=== PATIENT | female | born 1940 | race Caucasian/White ===

== ENCOUNTER 2016-12-23 17:02 | Inpatient (IN) | payer MEDICARE, MEDICAID ==
[2016-12-23] MEDS ORDERED: Albuterol/Ipratropium 3.0-0.5 MG/3 ML Neb Soln NEB ONE (17:40)
[2016-12-23] MEDS ORDERED: methylPREDNISolone Sodium Succinate 125 MG/2 ML SDV IVPUSH ONE (17:40)
--- NOTE | 2016-12-23 17:42 | EDM.PDOC ---
ED HISTORY OF PRESENT ILLNESS - General Chief Complaint: Respiratory Problem Stated Complaint: ALEJANDRO [phone] Time Seen by Provider: 12/23/16 17:35 Source of Information: Reports: Patient, RN, RN notes reviewed History Limitations: Reports: No limitations - History of Present Illness INITIAL COMMENTS - FREE TEXT/NARRATIVE: Patient presents with complaint of shortness of breath, cough and wheezing, fatigue and profound generalized weakness. Onset one to two days but progressively worsening. Severity: moderate Improves with: Reports: None Worsens with: Reports: None Associated Symptoms (General): Reports: no other symptoms - Related Data Allergies/ADRs: Allergies Allergy/AdvReac Type Severity Reaction Status Date / Time codeine Allergy Cannot Verified 10/07/15 12:52 Remember hydrochlorothiazide Allergy Cannot Verified 10/07/15 08:38 Remember Penicillins Allergy Rash Verified 10/07/15 12:52 Sulfa (Sulfonamide Allergy Rash Verified 10/07/15 12:52 Antibiotics) vitamin E (d-alpha Allergy Cannot Verified 10/07/15 08:38 tocopherol) Remember [vitamin E] calcium containing cmpd Allergy Cannot Uncoded 10/07/15 08:38 Remember seasonal allergies Allergy Cannot Uncoded 10/07/15 12:52 Remember Home Meds: Home Meds Colestipol [Colestipol HCl] 5 tab PO BID 11/16/13 [History] Fosinopril Sodium 40 mg PO DAILY 11/16/13 [History] Furosemide 20 mg PO BID 11/16/13 [History] Linagliptin [Tradjenta] 5 mg PO DAILY 11/16/13 [History] Omeprazole 20 mg PO DAILY 11/16/13 [History] Triamcinolone Acetonide [Kenalog 0.1% Crm] 15 gm .XX BID PRN 11/16/13 [History] Warfarin Sodium [Jantoven] 2.5 mg PO .SUNTUWEDTHSAT 11/16/13 [History] glipiZIDE [Glucotrol XL] 5 mg PO BID 02/20/15 [History] Clopidogrel [Plavix] 75 mg PO DAILY 08/06/15 [History] Warfarin [Coumadin] 5 mg PO .MONFRI 08/06/15 [History] metFORMIN [Glucophage] 500 mg PO BIDMEALS 08/06/15 [History] Metoprolol Succinate [Toprol XL] 75 mg PO BEDTIME #30 tab.er 12/18/15 [Rx] Fosinopril [Monopril] 2 tab PO BID 09/25/15 [History] traMADol [Ultram] 50 mg PO Q8H PRN 10/04/15 [History] Albuterol [Proair HFA] 2 puff INH QID 10/07/15 [History] Aspirin 325 mg PO DAILY 10/07/15 [History] Ferrous Sulfate [Iron] 325 mg PO DAILY 10/07/15 [History] Past Medical History HEENT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: Cataract, Impaired vision Cardiovascular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: Afib, Bacterial endocarditis, Blood clots/VTE/ DVT, Heart Failure, High cholesterol, Stents Respiratory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: COPD, Pneumonia, recurrent Gastrointestinal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: GERD, Hiatal hernia 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: , Other (see below) Other OB/BYN History: vaginal deliveries Musculoskeletal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: RA Neurological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: CVA Psychiatric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: None Endocrine/Metabolic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: Diabetes, type II Hematologic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: Anemia, Anticoagulation therapy, Blood transfusion (s), Iron deficiency Oncologic (Cancer)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: None Dermatologic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: Other (see below) Other Dermatologic History: patient reports that she has an itchy rash uses cream for this - Infectious Disease History Infectious Disease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: Chicken pox, Measles, Mumps - Past Surgical History HEENT Surgical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: Cataract surgery Cardiovascular Surgical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: Other (see below) Other Cardiovascular Surgeries/Procedures: open heart surgery in 1960 Respiratory Surgical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: None GI Surgical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: None, EGD Female Surgical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: None Endocrine Surgical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: None Neurological Surgical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: None Musculoskeletal Surgical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: None Social & Family History - Family History HEENT: Reports: Impaired vision Cardiac: Reports: Afib, Other (see below) Other Cardiac Family History: stroke Musculoskeletal: Reports: None Endocrine/Metabolic: Reports: Diabetes, type II - Tobacco Use Years of Tobacco use: 20 Used Tobacco, but Quit: Yes Month Tobacco Last Used: 20 yrs ago - Alcohol Use Days Per Week of Alcohol Use: 0 - Recreational Drug Use Recreational Drug Use: No - Living Situation & Occupation Living situation: Reports: , with spouse ED ROS GENERAL - Review of Systems Review Of Systems: ROS reveals no pertinent complaints other than HPI. ED EXAM, GENERAL - Physical Exam Exam: See Below Exam Limited By: No limitations General Appearance: other (Pale, frail, elderly appearing in no acute distress. ) Eye Exam: bilateral eye: conjunctival injection (pallor) Ears: normal external exam, normal canal, hearing grossly normal, normal TMs Nose: normal inspection, normal mucosa, no blood Throat/Mouth: Normal inspection, Normal lips, Normal teeth, Normal gums, Normal oropharynx, Normal voice, No airway compromise Head: atraumatic, normocephalic Neck: normal inspection, supple, non-tender, full range of motion Respiratory/Chest: other (decreased bilateral breath sounds, scattered wheezes. ) Cardiovascular: other (irregular/irregular) GI/Abdominal: normal bowel sounds, soft, non tender, no organomegaly, no distention, no abnormal bruit, no mass (Female) Exam: Deferred Rectal (Female) Exam: Deferred Back Exam: normal inspection, full range of motion, NT Extremities: normal inspection, normal range of motion, non-tender, normal capillary refill, no pedal edema Neurological: alert, oriented (alert and oriented to person, place, and month. State incorrect age. ), other (No motor or sensory deficits. Mild confusion. ) Psychiatric: normal affect, normal mood Skin Exam: Warm, Dry, Intact, Normal color, No rash EKG INTERPRETATION EKG Date: 12/23/16 Time: 18:10 Rhythm: a-fib Rate (beats/min): 83 [place]: normal P-wave: absent QRS: other (probable left ventricular hypertrophy and abnormal R-wave progression, late tarnsition.) ST-T: other (borderline T abnormalities, inferior leads.) QT: normal Comparison: no change Course - Vital Signs Last Recorded V/S: Last Vital Signs Temp 36.9 C 12/23/16 17:41 Pulse 124 H 12/23/16 17:41 Resp 22 H 12/23/16 17:41 BP 152/61 H 12/23/16 17:41 Pulse Ox 80 L 12/23/16 17:41 - Orders/Labs/Meds Orders: Active Orders 24 hr Category Date Time Status EKG 12 Lead [EKG Documentation Completion] [RC] STAT Care 12/23/16 17:39 Active Overnight Pulse Oximetry [RC] Click To Edit Care 12/23/16 17:40 Active Peripheral IV Care [RC] . DIRECTED Care 12/23/16 17:40 Active RT Aerosol Therapy [RC] ASDIRECTED Care 12/23/16 17:40 Active CULTURE BLOOD [BC] Stat Lab 12/23/16 18:03 Received CULTURE BLOOD [BC] Stat Lab 12/23/16 18:05 Received Sodium Chloride 0.9% [Saline Flush] Med 12/23/16 17:40 Active 10 ml FLUSH ASDIRECTED PRN Blood Culture x2 Reflex Set [OM.PC] Stat Oth 12/23/16 17:40 Ordered Peripheral IV Insertion Adult [OM.PC] Stat Oth 12/23/16 17:39 Ordered Pulse Oximetry Continuous Monitoring [OM.PC] Routine Oth 12/23/16 17:39 Ordered RT Supplemental Oxygen Titration [RESPCARE] Stat Ot 12/23/16 17:39 Active Medication Orders Sodium Chloride (Saline Flush) 10 ml FLUSH ASDIRECTED PRN PRN Reason: Keep Vein Open Last Admin: 12/23/16 18:06 Dose: 10 ml Labs: Laboratory Tests 12/23/16 12/23/16 12/23/16 Range/Units 17:45 18:05 18:05 WBC 5.6 (5.0-10.0) 10^3/uL RBC 3.27 L (4.2-5.4) 10^6/uL Hgb 10.0 L (12.0-16.0) g/dL Hct 31.2 L (37.0-47.0) % MCV 95.4 (80-100) fL MCH 30.6 (27.0-34.0) pg MCHC 32.1 L (33.0-35.0) g/dL Plt Count 140 L (150-450) 10^3/uL Neut % (Auto) 70.7 (42.2-75.2) % Lymph % (Auto) 15.5 L (20.5-50.1) % Island % (Auto) 10.7 H (2-8) % Eos % (Auto) 2.9 (1.0-3.0) % Baso % (Auto) 0.2 (0.0-1.0) % PT 39.5 H (9.0-12.0) SEC INR 3.9 H (0.9-1.2) Sodium (135-145) mmol/L Potassium (3.6-5.0) mmol/L Chloride (101-111) mmol/L Carbon Dioxide (21.0-31.0) mmol/L Anion Gap BUN (7-18) mg/dL Creatinine (0.6-1.3) mg/dL Est Cr Clr Drug Dosing mL/min Estimated GFR (MDRD) BUN/Creatinine Ratio Glucose (74-105) mg/dL Lactic Acid (0.5-2.2) mmol/L Calcium (8.4-10.2) mg/dl Total Bilirubin (0.2-1.0) mg/dL AST (10-42) IU/L ALT (10-60) IU/L Alkaline Phosphatase (42-121) IU/L Troponin I (0.00-0.02) ng/ml B-Natriuretic Peptide (0-100) pg/ml Total Protein (6.7-8.2) g/dl Albumin (3.2-5.5) g/dl Globulin Albumin/Globulin Ratio Urine Color Yellow (YELLOW) Urine Appearance Turbid (CLEAR) Urine pH 5.0 (5.0-9.0) Ur Specific [place] 1.010 (1.005-1.030) Urine Protein Negative (NEGATIVE) Urine Glucose (UA) Negative (NEGATIVE) Urine Ketones Negative (NEGATIVE) Urine Occult Blood Large H (NEGATIVE) Urine Nitrite Negative (NEGATIVE) Urine Bilirubin Negative (NEGATIVE) Urine Urobilinogen 0.2 (0.2-1.0) mg/dL Ur Leukocyte Esterase Trace H (NEGATIVE) Urine RBC 75-100 H /HPF Urine WBC 0-5 (0-5/HPF) /HPF Ur Epithelial Cells Few /HPF Urine Bacteria Few (0-FEW/HPF) /HPF 12/23/16 12/23/16 Range/Units 18:05 18:05 WBC (5.0-10.0) 10^3/uL RBC (4.2-5.4) 10^6/uL Hgb (12.0-16.0) g/dL Hct (37.0-47.0) % MCV (80-100) fL MCH (27.0-34.0) pg MCHC (33.0-35.0) g/dL Plt Count (150-450) 10^3/uL Neut % (Auto) (42.2-75.2) % Lymph % (Auto) (20.5-50.1) % [place] % (Auto) (2-8) % Eos % (Auto) (1.0-3.0) % Baso % (Auto) (0.0-1.0) % PT (9.0-12.0) SEC INR (0.9-1.2) Sodium 137 (135-145) mmol/L Potassium 3.9 (3.6-5.0) mmol/L Chloride 103 (101-111) mmol/L Carbon Dioxide 23.0 (21.0-31.0) mmol/L Anion Gap 14.9 BUN 42 H (7-18) mg/dL Creatinine 2.0 H (0.6-1.3) mg/dL Est Cr Clr Drug Dosing 21.53 mL/min Estimated GFR (MDRD) 24 BUN/Creatinine Ratio 21.00 Glucose 175 H (74-105) mg/dL Lactic Acid 1.5 (0.5-2.2) mmol/L Calcium 9.0 (8.4-10.2) mg/dl Total Bilirubin 0.6 (0.2-1.0) mg/dL AST 29 (10-42) IU/L ALT 22 (10-60) IU/L Alkaline Phosphatase 43 (42-121) IU/L Troponin I < 0.02 (0.00-0.02) ng/ml B-Natriuretic Peptide 281 H (0-100) pg/ml Total Protein 8.0 (6.7-8.2) g/dl Albumin 4.0 (3.2-5.5) g/dl Globulin 4.0 Albumin/Globulin Ratio 1.00 Urine Color (YELLOW) Urine Appearance (CLEAR) Urine pH (5.0-9.0) Ur Specific [place] (1.005-1.030) Urine Protein (NEGATIVE) Urine Glucose (UA) (NEGATIVE) Urine Ketones (NEGATIVE) Urine Occult Blood (NEGATIVE) Urine Nitrite (NEGATIVE) Urine Bilirubin (NEGATIVE) Urine Urobilinogen (0.2-1.0) mg/dL Ur Leukocyte Esterase (NEGATIVE) Urine RBC /HPF Urine WBC (0-5/HPF) /HPF Ur Epithelial Cells /HPF Urine Bacteria (0-FEW/HPF) /HPF Meds: Medications Generic Name Dose Route Start Last Admin Trade Name Freq PRN Reason Stop Dose Admin Sodium Chloride 10 ml 12/23/16 17:40 12/23/16 18:06 Saline Flush FLUSH 10 ml ASDIRECTED PRN Administration Keep Vein Open Discontinued Medications Generic Name Dose Route Start Last Admin Trade Name Amanda PRN Reason Stop Dose Admin Albuterol/Ipratropium 3 ml 12/23/16 17:40 12/23/16 18:06 Duoneb 3.0-0.5 Mg/3 Ml NEB 12/23/16 17:41 3 ml ONETIME ONE Administration Methylprednisolone Sodium Succinate 125 mg 12/23/16 17:40 12/23/16 18:06 Solu-Medrol IVPUSH 12/23/16 17:41 125 mg ONETIME ONE Administration - Radiology Interpretation Free Text/Narrative:: Chest x-ray: Chronic COPD changes. No focal infiltrate per rad report. Departure - Departure Time of Disposition: 19:06 (Admit to [facility]) Disposition: Admitted As Inpatient 66 Condition: serious Clinical Impression: COPD with acute exacerbation, Hypoxia, Chronic atrial fibrillation, Anticoagulation excessive Forms: ED Department Discharge - My Orders Last 24 Hours: My Active Orders 12/23/16 17:39 EKG 12 Lead [EKG Documentation Completion] [RC] STAT Peripheral IV Insertion Adult [OM.PC] Stat Pulse Oximetry Continuous Monitoring [OM.PC] Routine RT Supplemental Oxygen Titration [RESPCARE] Stat 12/23/16 17:40 Overnight Pulse Oximetry [RC] Click To Edit Peripheral IV Care [RC] . DIRECTED RT Aerosol Therapy [RC] ASDIRECTED Sodium Chloride 0.9% [Saline Flush] 10 ml FLUSH ASDIRECTED PRN Blood Culture x2 Reflex Set [OM.PC] Stat 12/23/16 18:03 CULTURE BLOOD [BC] Stat 12/23/16 18:05 CULTURE BLOOD [BC] Stat - Assessment/Plan Last 24 Hours: My Active Orders 12/23/16 17:39 EKG 12 Lead [EKG Documentation Completion] [RC] STAT Peripheral IV Insertion Adult [OM.PC] Stat Pulse Oximetry Continuous Monitoring [OM.PC] Routine RT Supplemental Oxygen Titration [RESPCARE] Stat 12/23/16 17:40 Overnight Pulse Oximetry [RC] Click To Edit Peripheral IV Care [RC] . DIRECTED RT Aerosol Therapy [RC] ASDIRECTED Sodium Chloride 0.9% [Saline Flush] 10 ml FLUSH ASDIRECTED PRN Blood Culture x2 Reflex Set [OM.PC] Stat 12/23/16 18:03 CULTURE BLOOD [BC] Stat 12/23/16 18:05 CULTURE BLOOD [BC] Stat
[2016-12-23] MEDS: Sodium Chloride 0.9% 10 ML Syringe FLUSH PRN (18:06)
[2016-12-23 18:35] LABS: CHLORIDE,CL 103 mmol/L (101-111); SODIUM,NA 137 mmol/L (135-145)
[2016-12-23] MEDS ORDERED: traMADol 50 MG Tab PO PRN (19:53)
[2016-12-23] MEDS ORDERED: Albuterol 0.083% 2.5 MG/3 ML Neb Soln NEB PRN (20:02)
[2016-12-23] MEDS ORDERED: Acetaminophen 325 MG Tab PO PRN (20:14)
[2016-12-23] MEDS ORDERED: Sodium Chloride 0.9% 10 ML Syringe FLUSH PRN (20:14)
[2016-12-23] MEDS ORDERED: Docusate Sodium 100 MG Cap PO PRN (20:14)
[2016-12-23] MEDS ORDERED: Ondansetron 4 MG Tab.DIS PO PRN (20:14)
--- NOTE | 2016-12-23 20:22 | PCM.HP ---
H&P History of Present Illness - General Date of Service: 12/23/16 Admit Problem/Dx: Admission Diagnosis/Problem Admission Diagnosis/Problem Dyspnea, acute COPD exacerbation - History of Present Illness Initial Comments - Free Text/Narative: the patient is a 76-year-old with a history of coronary artery disease, CHF, pulmonary hypertension, atrial fibrillation on anticoagulation. She has a history of COPD, not using home oxygen or steroids The patient recently traveled to [place] and did not have her inhalers with her In the next few days was getting progressively short breath Shortness of breath is worse with activity, better with rest, not associated with chest pain She has no cough or fever, no sick contact Came into the emergency room, she was noted to have hypoxemia She was given inhalers after she was noted to have wheezing and now she is feeling better - Related Data Allergies/Adverse Reactions: Allergies Allergy/AdvReac Type Severity Reaction Status Date / Time codeine Allergy Cannot Verified 10/07/15 12:52 Remember hydrochlorothiazide Allergy Cannot Verified 10/07/15 08:38 Remember Penicillins Allergy Rash Verified 10/07/15 12:52 Sulfa (Sulfonamide Allergy Rash Verified 10/07/15 12:52 Antibiotics) vitamin E (d-alpha Allergy Cannot Verified 10/07/15 08:38 tocopherol) Remember [vitamin E] calcium containing cmpd Allergy Cannot Uncoded 10/07/15 08:38 Remember seasonal allergies Allergy Cannot Uncoded 10/07/15 12:52 Remember Home Medications: Home Meds Colestipol [Colestipol HCl] 5 tab PO BID 11/16/13 [History] Fosinopril Sodium 40 mg PO DAILY 11/16/13 [History] Furosemide 20 mg PO BID 11/16/13 [History] Linagliptin [Tradjenta] 5 mg PO DAILY 11/16/13 [History] Omeprazole 20 mg PO DAILY 11/16/13 [History] Triamcinolone Acetonide [Kenalog 0.1% Crm] 15 gm .XX BID PRN 11/16/13 [History] Warfarin Sodium [Jantoven] 2.5 mg PO .SUNTUWEDTHSAT 11/16/13 [History] glipiZIDE [Glucotrol XL] 5 mg PO BID 02/20/15 [History] Clopidogrel [Plavix] 75 mg PO DAILY 08/06/15 [History] Warfarin [Coumadin] 5 mg PO .MONFRI 08/06/15 [History] metFORMIN [Glucophage] 500 mg PO BIDMEALS 08/06/15 [History] Metoprolol Succinate [Toprol XL] 75 mg PO BEDTIME #30 tab.er 08/09/15 [Rx] Fosinopril [Monopril] 2 tab PO BID 09/25/15 [History] traMADol [Ultram] 50 mg PO Q8H PRN 10/04/15 [History] Albuterol [Proair HFA] 2 puff INH QID 10/07/15 [History] Aspirin 325 mg PO DAILY 10/07/15 [History] Ferrous Sulfate [Iron] 325 mg PO DAILY 10/07/15 [History] Past Medical History HEENT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: Cataract, Impaired vision Cardiovascular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: Afib, Bacterial endocarditis, Blood clots/VTE/ DVT, Heart Failure, High cholesterol, Stents Respiratory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: COPD, Pneumonia, recurrent Gastrointestinal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: GERD, Hiatal hernia [employer]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: , Other (see below) Other OB/BYN History: vaginal deliveries Musculoskeletal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: RA Neurological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: CVA Psychiatric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: None Endocrine/Metabolic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: Diabetes, type II Hematologic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: Anemia, Anticoagulation therapy, Blood transfusion (s), Iron deficiency Oncologic (Cancer)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: None Dermatologic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: Other (see below) Other Dermatologic History: patient reports that she has an itchy rash uses cream for this - Infectious Disease History Infectious Disease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: Chicken pox, Measles, Mumps - Past Surgical History HEENT Surgical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: Cataract surgery Cardiovascular Surgical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: Other (see below) Other Cardiovascular Surgeries/Procedures: open heart surgery in 1960 Respiratory Surgical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: None GI Surgical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: None, EGD Female Surgical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: None Endocrine Surgical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: None Neurological Surgical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: None Musculoskeletal Surgical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: None Social & Family History - Family History HEENT: Reports: Impaired vision Cardiac: Reports: Afib, Other (see below) Other Cardiac Family History: stroke Musculoskeletal: Reports: None Endocrine/Metabolic: Reports: Diabetes, type II - Tobacco Use Smoking Status *Q: Former Smoker Years of Tobacco use: 20 Used Tobacco, but Quit: Yes Month Tobacco Last Used: 20 yrs ago Second Hand Smoke Exposure: No - Caffeine Use Caffeine Use: Reports: Coffee - Alcohol Use Days Per Week of Alcohol Use: 0 - Recreational Drug Use Recreational Drug Use: No - Living Situation & Occupation Living situation: Reports: , with spouse H&P Review of Systems - Review of Systems: Review Of Systems: See Below General: Denies: fever, chills Pulmonary: Reports: Shortness of Breath, Wheezing. Denies: Sputum, Hemoptysis Cardiovascular: Denies: chest pain, palpitations Gastrointestinal: Denies: Abdominal pain Psychiatric: Denies: confusion Neurological: Denies: Dizziness, Headache Exam - Exam Exam: See Below - Vital Signs Vital Signs: Last Vital Signs Temp 36.9 C 12/23/16 17:41 Pulse 124 H 12/23/16 17:41 Resp 22 H 12/23/16 17:41 BP 152/61 H 12/23/16 17:41 Pulse Ox 80 L 12/23/16 17:41 Weight: 78.018 kg - Exam Quality Assessment: supplemental oxygen General: alert, oriented Neck: supple Lungs: Decreased breath sounds, Wheezing (mild) Cardiovascular: irregular rhythm. No: bradycardia, tachycardia Abdomen: normal bowel sounds, soft Back Exam: normal inspection, full range of motion Extremities: normal inspection. No: edema Skin: warm, dry Neuro Extensive - Mental Status: alert, oriented x3, normal mood/affect - Patient Data Result Diagrams: 12/23/16 18:05 12/23/16 18:05 EKG INTERPRETATION EKG Date: 12/23/16 Rhythm: a-fib *Q Meaningful Use (ADM) - VTE *Q VTE Criteria *Q: - Stroke *Q Stroke Criteria *Q: - AMI *Q AMI Criteria *Q: - Problem List (1) COPD with acute exacerbation SNOMED Code(s): 108703092 ICD Code: J44.1 - CHRONIC OBSTRUCTIVE PULMONARY DISEASE W (ACUTE) EXACERBATION Status: Acute Current Visit: Yes (2) Chronic atrial fibrillation SNOMED Code(s): 981818076 ICD Code: I48.2 - CHRONIC ATRIAL FIBRILLATION Status: Acute Current Visit : Yes (3) Hypoxia SNOMED Code(s): 602135157, 150355019 ICD Code: R09.02 - HYPOXEMIA Status: Acute Current Visit: Yes (4) Dyspnea SNOMED Code(s): 360447453 ICD Code: R06.00 - DYSPNEA, UNSPECIFIED Status: Acute Current Visit: No Onset Date: 08/06/15 (5) Anticoagulated on Coumadin SNOMED Code(s): 55937771 ICD Code: Z51.81 - ENCOUNTER FOR THERAPEUTIC DRUG LEVEL MONITORING; Z79.01 - MCC (CURRENT) USE OF ANTICOAGULANTS Status: Chronic Current Visit: No (6) Diabetes mellitus type 2, uncomplicated SNOMED Code(s): 091811532 ICD Code: E11.9 - TYPE 2 DIABETES MELLITUS WITHOUT COMPLICATIONS Status: Chronic Current Visit: No (7) Hypertension SNOMED Code(s): 41270209 ICD Code: I10 - ESSENTIAL (PRIMARY) HYPERTENSION Status: Chronic Current Visit: No Problem List Initiated/Reviewed/Updated: Yes Orders Last 24hrs: Active Orders 24 hr Category Date Time Status Patient Status [ADT] Routine ADT 12/23/16 20:14 Ordered Antiembolic Devices [RC] PER UNIT ROUTINE Care 12/23/16 20:17 Ordered Glucose [Blood Glucose Check, Bedside] [RC] QIDACANDBED Care 12/23/16 20:11 Ordered Oxygen Therapy [RC] PRN Care 12/23/16 20:14 Ordered RT Aerosol Therapy [RC] ASDIRECTED Care 12/23/16 20:01 Ordered Up With Assistance [RC] ASDIRECTED Care 12/23/16 20:14 Ordered VTE/DVT Education [RC] PER UNIT ROUTINE Care 12/23/16 20:14 Ordered Vital Signs [RC] Q4H Care 12/23/16 20:14 Ordered Consistent Carbohydrate Diet [DIET] Diet 12/23/16 Breakfast Ordered BASIC METABOLIC PANEL,BMP [CHEM] AM Lab 12/24/16 05:15 Ordered CBC WITH AUTO DIFF [HEME] AM Lab 12/24/16 05:15 Ordered INR,PT,PROTHROMBIN TIME [COAG] AM Lab 12/24/16 05:11 Ordered INR,PT,PROTHROMBIN TIME [COAG] AM Lab 12/25/16 05:11 Ordered INR,PT,PROTHROMBIN TIME [COAG] AM Lab 12/26/16 05:11 Ordered INR,PT,PROTHROMBIN TIME [COAG] AM Lab 12/27/16 05:11 Ordered INR,PT,PROTHROMBIN TIME [COAG] AM Lab 12/28/16 05:11 Ordered INR,PT,PROTHROMBIN TIME [COAG] AM Lab 12/29/16 05:11 Ordered INR,PT,PROTHROMBIN TIME [COAG] AM Lab 12/30/16 05:11 Ordered INR,PT,PROTHROMBIN TIME [COAG] AM Lab 12/31/16 05:11 Ordered Acetaminophen [Tylenol] Med 12/23/16 20:14 Ordered 650 mg PO Q4H PRN Albuterol [Proventil Neb Soln] Med 12/23/16 20:02 Ordered 2.5 mg NEB Q6HRRT PRN Albuterol/Ipratropium [DuoNeb 3.0-0.5 MG/3 ML] Med 12/24/16 01:00 Ordered 3 ml NEB Q6HRRT Aspirin Med 12/24/16 09:00 Ordered 325 mg PO DAILY Budesonide [Pulmicort] Med 12/24/16 07:00 Ordered 0.5 mg NEB BIDRT Docusate Sodium [Colace] Med 12/23/16 20:14 Ordered 100 mg PO BID PRN Ferrous Sulfate Med 12/24/16 09:00 Ordered 325 mg PO DAILY Fosinopril [Monopril] Med 12/23/16 21:00 Ordered 2 tab PO BID Furosemide [Lasix] Med 12/23/16 21:00 Ordered 20 mg PO BID Insulin Aspart [NovoLOG] Med 12/23/16 21:00 Ordered See Protocol SUBCUT QIDACANDBED Metoprolol Succinate [Toprol XL] Med 12/23/16 21:00 Ordered 75 mg PO BEDTIME Omeprazole Med 12/24/16 09:00 Ordered 20 mg PO DAILY Ondansetron [Zofran ODT] Med 12/23/16 20:14 Ordered 4 mg PO Q4H PRN Sodium Chloride 0.9% [Saline Flush] Med 12/23/16 20:14 Ordered 10 ml FLUSH ASDIRECTED PRN Warfarin Pharmacy to Dose [Pharmacy to Dose - Warfarin] Med 12/23/16 20:00 Ordered 1 dose .XX ASDIRECTED Zolpidem [Ambien] Med 12/23/16 20:14 Ordered 5 mg PO BEDTIME PRN glipiZIDE [Glucotrol XL] Med 12/23/16 21:00 Ordered 5 mg PO BID methylPREDNISolone Sod Succ [Solu-MEDROL] Med 12/23/16 20:00 Ordered 40 mg IVPUSH Q8H traMADol [Ultram] Med 12/23/16 19:53 Ordered 50 mg PO Q8H PRN Antiembolic Hose [OM.PC] Per Unit Routine Oth 12/23/16 20:17 Ordered Saline Lock Insert [OM.PC] Routine Oth 12/23/16 20:14 Ordered Resuscitation Status Routine Resus Stat 12/23/16 20:14 Ordered Medication Orders Albuterol (Proventil Neb Soln) 2.5 mg NEB Q6HRRT PRN PRN Reason: sob Albuterol/Ipratropium (Duoneb 3.0-0.5 Mg/3 Ml) 3 ml NEB Q6HRRT [facility] Aspirin (Aspirin) 325 mg PO DAILY [facility] Budesonide (Pulmicort) 0.5 mg NEB BIDRT [facility] Ferrous Sulfate (Ferrous Sulfate) 325 mg PO DAILY [facility] Furosemide (Lasix) 20 mg PO BID [facility] Glipizide (Glucotrol Xl) 5 mg PO BID [facility] Insulin Aspart (Novolog) 0 unit SUBCUT QIDACANDBED [facility] PRN Reason: Protocol Methylprednisolone Sodium Succinate (Solu-Medrol) 40 mg IVPUSH Q8H [facility] Metoprolol Succinate (Toprol Xl) 75 mg PO BEDTIME [facility] Non-Formulary Medication (Fosinopril [Monopril]) 2 tab PO BID [facility] Omeprazole (Omeprazole) 20 mg PO DAILY [facility] Sodium Chloride (Saline Flush) 10 ml FLUSH ASDIRECTED PRN PRN Reason: Keep Vein Open Last Admin: 12/23/16 18:06 Dose: 10 ml Tramadol HCl (Ultram) 50 mg PO Q8H PRN PRN Reason: Pain Warfarin Sodium (Pharmacy To Dose - Warfarin) 1 dose .XX ASDIRECTED [facility] Assessment/Plan Comment:: Acute hypoxemic respiratory failure secondary to an acute COPD exacerbation Supplemental oxygen as needed Acute COPD exacerbation No apparent pneumonia on chest x-ray The patient was on albuterol inhaler, no home oxygen Will admit to hospital Start IV steroid, Pulmicort, scheduled DuoNeb and p.r.n. albuterol Coronary artery disease Continue on aspirin Continue Metoprolol Diabetes Hold Linagliptin, metformin Continue glipizide Follow blood sugars, and supplemental insulin and hypoglycemia protocol as needed Chronic kidney disease stage 3-4 Continue diuretics Hypertension Continue NIKOLAI inhibitor, metoprolol History of pulmonary hypertension Maintain Lasix dose Atrial fibrillation Her rate is controlled, continue metoprolol Anticoagulation for history of DVT, atrial fibrillation Target INR will be between 2 and 3 Follow INR daily Adjust Coumadin dose daily as needed
[2016-12-23] MEDS: Insulin Aspart 100 Units/ML 3 ML Pen SUBCUT SCH (23:29)
[2016-12-23] MEDS: glipiZIDE 5 MG Tab.ER PO SCH (23:29)
[2016-12-23] MEDS: Furosemide 20 MG Tab PO SCH (23:29)
[2016-12-23] MEDS: methylPREDNISolone Sodium Succinate 40 MG/1 ML SDV IVPUSH SCH (23:32)
[2016-12-23] MEDS: Metoprolol Succinate 50 MG Tab.ER PO SCH (23:35)
[2016-12-23] MEDS: Zolpidem 5 MG Tab PO PRN (23:36)
[2016-12-24] MEDS: Albuterol/Ipratropium 3.0-0.5 MG/3 ML Neb Soln NEB SCH ×4 (01:50→17:47)
[2016-12-24] MEDS: Omeprazole 20 MG Cap.CR PO SCH (05:38)
[2016-12-24] MEDS ORDERED: traMADol 50 MG Tab PO PRN (08:02)
[2016-12-24] MEDS: Insulin Aspart 100 Units/ML 3 ML Pen SUBCUT SCH ×4 (08:54→21:08)
[2016-12-24] MEDS: Aspirin 325 MG Tab PO SCH (08:54)
[2016-12-24] MEDS: methylPREDNISolone Sodium Succinate 40 MG/1 ML SDV IVPUSH SCH ×2 (08:54→17:47)
[2016-12-24] MEDS: glipiZIDE 5 MG Tab.ER PO SCH ×2 (08:54→17:47)
[2016-12-24] MEDS: Ferrous Sulfate 325 MG Tab PO SCH (08:54)
[2016-12-24] MEDS: Furosemide 20 MG Tab PO SCH ×2 (08:54→13:09)
[2016-12-24] MEDS: Sodium Chloride 0.9% 10 ML Syringe FLUSH PRN (08:57)
[2016-12-24] MEDS ORDERED: Clopidogrel 75 MG Tab PO SCH (09:00)
[2016-12-24] MEDS: Budesonide 0.5 MG/2 ML Neb Susp NEB SCH ×2 (10:04→17:47)
--- NOTE | 2016-12-24 10:16 | PCM.PN ---
- General Info Date of Service: 12/24/16 Admission Dx/Problem (Free Text): Admission Diagnosis/Problem Admission Diagnosis/Problem Dyspnea, acute COPD exacerbation Subjective Update: feeling better, Last shortness of breath, but still on oxygen no fever, no chest pain, no abdominal pain Has been using nebulizers - Review of Systems General: Reports: Weakness. Denies: Fever Pulmonary: Reports: shortness of breath (improved). Denies: cough Cardiovascular: Denies: Chest Pain Gastrointestinal: Denies: Abdominal pain Genitourinary: Denies: dysuria Neurological: Denies: Confusion - Patient Data Vitals - most recent: Last Vital Signs Temp 37.1 C 12/24/16 07:00 Pulse 75 12/24/16 07:00 Resp 20 12/24/16 07:00 BP 107/58 L 12/24/16 07:00 Pulse Ox 100 12/24/16 07:00 Weight - most recent: 78.018 kg I&O - last 24 hours: Intake & Output 12/23/16 12/24/16 12/24/16 22:59 06:59 14:59 Intake Total 350 200 Output Total 300 600 Balance -300 -250 200 Lab Results last 24 hrs: Laboratory Results - last 24 hr 12/23/16 12/24/16 12/24/16 Range/Units 21:18 06:45 06:45 WBC 6.9 (5.0-10.0) 10^3/uL RBC 3.27 L (4.2-5.4) 10^6/uL Hgb 9.8 L (12.0-16.0) g/dL Hct 31.2 L (37.0-47.0) % MCV 95.4 (80-100) fL MCH 30.0 (27.0-34.0) pg MCHC 31.4 L (33.0-35.0) g/dL Plt Count 138 L (150-450) 10^3/uL Neut % (Auto) 89.7 H (42.2-75.2) % Lymph % (Auto) 8.9 L (20.5-50.1) % [place] % (Auto) 1.2 L (2-8) % Eos % (Auto) 0.1 L (1.0-3.0) % Baso % (Auto) 0.1 (0.0-1.0) % PT (9.0-12.0) SEC INR (0.9-1.2) Sodium 137 (135-145) mmol/L Potassium 4.2 (3.6-5.0) mmol/L Chloride 106 (101-111) mmol/L Carbon Dioxide 22.0 (21.0-31.0) mmol/L Anion Gap 13.2 BUN 42 H (7-18) mg/dL Creatinine 1.9 H (0.6-1.3) mg/dL Est Cr Clr Drug Dosing 23.58 mL/min Estimated GFR (MDRD) 26 Glucose 244 H (74-105) mg/dL POC Glucose 212 H (83-110) mg/dl Calcium 9.1 (8.4-10.2) mg/dl 12/24/16 12/24/16 Range/Units 06:45 07:59 WBC (5.0-10.0) 10^3/uL RBC (4.2-5.4) 10^6/uL Hgb (12.0-16.0) g/dL Hct (37.0-47.0) % MCV (80-100) fL MCH (27.0-34.0) pg MCHC (33.0-35.0) g/dL Plt Count (150-450) 10^3/uL Neut % (Auto) (42.2-75.2) % Lymph % (Auto) (20.5-50.1) % [place] % (Auto) (2-8) % Eos % (Auto) (1.0-3.0) % Baso % (Auto) (0.0-1.0) % PT 26.6 H (9.0-12.0) SEC INR 2.6 H (0.9-1.2) Sodium (135-145) mmol/L Potassium (3.6-5.0) mmol/L Chloride (101-111) mmol/L Carbon Dioxide (21.0-31.0) mmol/L Anion Gap BUN (7-18) mg/dL Creatinine (0.6-1.3) mg/dL Est Cr Clr Drug Dosing mL/min Estimated GFR (MDRD) Glucose (74-105) mg/dL POC Glucose 221 H (83-110) mg/dl Calcium (8.4-10.2) mg/dl Med Orders - Current: Current Medications Acetaminophen (Tylenol) 650 mg PO Q4H PRN PRN Reason: Pain (Mild 1-3)/fever Albuterol (Proventil Neb Soln) 2.5 mg NEB Q6HRRT PRN PRN Reason: sob Last Admin: 12/24/16 02:33 Dose: 2.5 mg Albuterol/Ipratropium (Duoneb 3.0-0.5 Mg/3 Ml) 3 ml NEB Q6HRRT [facility] Last Admin: 12/24/16 10:05 Dose: 3 ml Aspirin (Aspirin) 325 mg PO DAILY [facility] Last Admin: 12/24/16 08:54 Dose: 325 mg Budesonide (Pulmicort) 0.5 mg NEB BIDRT [facility] Last Admin: 12/24/16 10:04 Dose: 0.5 mg Docusate Sodium (Colace) 100 mg PO BID PRN PRN Reason: Constipation Ferrous Sulfate (Ferrous Sulfate) 325 mg PO DAILY [facility] Last Admin: 12/24/16 08:54 Dose: 325 mg Furosemide (Lasix) 20 mg PO BIDDIURETIC [facility] Last Admin: 12/24/16 08:54 Dose: 20 mg Glipizide (Glucotrol Xl) 5 mg PO BIDMEALS [facility] Last Admin: 12/24/16 08:54 Dose: 5 mg Insulin Aspart (Novolog) 0 unit SUBCUT QIDACANDBED [facility] PRN Reason: Protocol Last Admin: 12/24/16 08:54 Dose: 4 units Methylprednisolone Sodium Succinate (Solu-Medrol) 40 mg IVPUSH Q8H [facility] Last Admin: 12/24/16 08:54 Dose: 40 mg Metoprolol Succinate (Toprol Xl) 75 mg PO BEDTIME [facility] Last Admin: 12/23/16 23:35 Dose: 75 mg Non-Formulary Medication (Fosinopril [Monopril]) 2 tab PO BID [facility] Omeprazole (Omeprazole) 20 mg PO DAILY@0600 [facility] Last Admin: 12/24/16 05:38 Dose: 20 mg Ondansetron HCl (Zofran Odt) 4 mg PO Q4H PRN PRN Reason: nausea, able to take PO Sodium Chloride (Saline Flush) 10 ml FLUSH ASDIRECTED PRN PRN Reason: Keep Vein Open Last Admin: 12/24/16 08:57 Dose: 10 ml Sodium Chloride (Saline Flush) 10 ml FLUSH ASDIRECTED PRN PRN Reason: Keep Vein Open Tramadol HCl (Ultram) 50 mg PO Q12HR PRN PRN Reason: Pain Warfarin Sodium (Pharmacy To Dose - Warfarin) 1 dose .XX ASDIRECTED [facility] Warfarin Sodium (Coumadin) 2.5 mg PO ONETIME ONE Stop: 12/24/16 14:01 Zolpidem Tartrate (Ambien) 5 mg PO BEDTIME PRN PRN Reason: Sleep Last Admin: 12/23/16 23:36 Dose: 5 mg Discontinued Medications Albuterol/Ipratropium (Duoneb 3.0-0.5 Mg/3 Ml) 3 ml NEB ONETIME ONE Stop: 12/23/16 17:41 Last Admin: 12/23/16 18:06 Dose: 3 ml Clopidogrel Bisulfate (Plavix) 75 mg PO DAILY [facility] Methylprednisolone Sodium Succinate (Solu-Medrol) 125 mg IVPUSH ONETIME ONE Stop: 12/23/16 17:41 Last Admin: 12/23/16 18:06 Dose: 125 mg Tramadol HCl (Ultram) 50 mg PO Q8H PRN PRN Reason: Pain - Exam Quality Assessment: supplemental oxygen General: alert, oriented Neck: supple Lungs: Normal respiratory effort, Decreased breath sounds. No: Wheezing Cardiovascular: Regular Rate, Regular Rhythm Abdomen: bowel sounds present, soft, no tenderness, no distension Extremities: no edema Skin: warm, dry, intact Psy/Mental Status: alert, normal affect, normal mood - Problem List & Annotations (1) COPD with acute exacerbation SNOMED Code(s): 350250678 Code(s): J44.1 - CHRONIC OBSTRUCTIVE PULMONARY DISEASE W (ACUTE) EXACERBATION Status: Acute Current Visit: Yes (2) Chronic atrial fibrillation SNOMED Code(s): 664874580 Code(s): I48.2 - CHRONIC ATRIAL FIBRILLATION Status: Acute Current Visit : Yes (3) Hypoxia SNOMED Code(s): 595315923, 145370467 Code(s): R09.02 - HYPOXEMIA Status: Acute Current Visit: Yes (4) Dyspnea SNOMED Code(s): 650364529 Code(s): R06.00 - DYSPNEA, UNSPECIFIED Status: Acute Current Visit: No Onset Date: 08/06/15 (5) Anticoagulated on Coumadin SNOMED Code(s): 63004794 Code(s): Z51.81 - ENCOUNTER FOR THERAPEUTIC DRUG LEVEL MONITORING; Z79.01 - [employer]IC[employer] (CURRENT) USE OF ANTICOAGULANTS Status: Chronic Current Visit: No (6) Diabetes mellitus type 2, uncomplicated SNOMED Code(s): 557321587 Code(s): E11.9 - TYPE 2 DIABETES MELLITUS WITHOUT COMPLICATIONS Status: Chronic Current Visit: No (7) Hypertension SNOMED Code(s): 22085813 Code(s): I10 - ESSENTIAL (PRIMARY) HYPERTENSION Status: Chronic Current Visit: No - Problem List Review Problem List Initiated/Reviewed/Updated: Yes - My Orders Last 24 Hours: My Active Orders 12/24/16 08:02 traMADol [Ultram] 50 mg PO Q12HR PRN 12/24/16 14:00 Warfarin [Coumadin] 2.5 mg PO ONETIME ONE 12/25/16 05:15 BASIC METABOLIC PANEL,BMP [CHEM] AM CBC WITH AUTO DIFF [HEME] AM - Plan Plan:: Acute hypoxemic respiratory failure secondary to an acute COPD exacerbation Supplemental oxygen as needed Acute COPD exacerbation No apparent pneumonia on chest x-ray continue IV steroid, Pulmicort, scheduled DuoNeb and p.r.n. albuterol Coronary artery disease Continue on aspirin Continue Metoprolol Diabetes Hold Linagliptin, metformin Continue glipizide Follow blood sugars, and supplemental insulin and hypoglycemia protocol as needed Chronic kidney disease stage 3-4 Continue diuretics Hypertension Continue NIKOLAI inhibitor, metoprolol History of pulmonary hypertension Maintain Lasix dose Atrial fibrillation Her rate is controlled, continue metoprolol Anticoagulation for history of DVT, atrial fibrillation Target INR will be between 2 and 3 Follow INR daily Adjust Coumadin dose daily as needed
[2016-12-24] MEDS: FOSINOPRIL PO SCH ×2 (11:39→12:33)
[2016-12-24] MEDS ORDERED: Warfarin 2.5 MG Tab PO ONE (14:00)
[2016-12-24] MEDS: Metoprolol Succinate 50 MG Tab.ER PO SCH (21:10)
[2016-12-24] MEDS: Zolpidem 5 MG Tab PO PRN (21:14)
[2016-12-25] MEDS: methylPREDNISolone Sodium Succinate 40 MG/1 ML SDV IVPUSH SCH ×2 (00:25→08:40)
[2016-12-25] MEDS: Albuterol/Ipratropium 3.0-0.5 MG/3 ML Neb Soln NEB SCH ×3 (03:01→13:33)
[2016-12-25] MEDS: Omeprazole 20 MG Cap.CR PO SCH (06:06)
[2016-12-25] MEDS: Budesonide 0.5 MG/2 ML Neb Susp NEB SCH (07:10)
[2016-12-25] MEDS: Furosemide 20 MG Tab PO SCH ×2 (08:39→13:35)
[2016-12-25] MEDS: glipiZIDE 5 MG Tab.ER PO SCH (08:39)
[2016-12-25] MEDS: Ferrous Sulfate 325 MG Tab PO SCH (08:39)
[2016-12-25] MEDS: Aspirin 325 MG Tab PO SCH (08:39)
[2016-12-25] MEDS: Insulin Aspart 100 Units/ML 3 ML Pen SUBCUT SCH ×2 (08:41→12:05)
[2016-12-25] MEDS: Sodium Chloride 0.9% 10 ML Syringe FLUSH PRN (08:43)
--- NOTE | 2016-12-25 09:40 | PCM.DCSUM1 ---
Discharge Summary - Hospital Course Free Text/Narrative:: Acute hypoxemic respiratory failure secondary to an acute COPD exacerbation walking desat study performed prior to discharge showed need for 3 l /min oxygen with activity for Dx: COPD, likely lifelong need can be on RA with rest and at night Acute COPD exacerbation No apparent pneumonia on chest x-ray treated with IV steroid, Pulmicort, scheduled DuoNeb and p.r.n. albuterol improved will taper PO prednisone will do home abx will need home oxygen with activity via [place] Coronary artery disease Continue on aspirin Continue Metoprolol Diabetes resume Linagliptin, metformin Continue glipizide Chronic kidney disease stage 3-4 Continue diuretics Hypertension Continue NIKOLAI inhibitor, metoprolol History of pulmonary hypertension Maintain Lasix dose Atrial fibrillation Her rate is controlled, continue metoprolol Anticoagulation for history of DVT, atrial fibrillation continue coumadin - Discharge Data Discharge Date: 12/25/16 Discharge Disposition: Home, Self-Care 01 Condition: Fair - Discharge Diagnosis/Problem(s) (1) COPD with acute exacerbation SNOMED Code(s): 128524135 ICD Code: J44.1 - CHRONIC OBSTRUCTIVE PULMONARY DISEASE W (ACUTE) EXACERBATION Status: Acute Current Visit: Yes (2) Chronic atrial fibrillation SNOMED Code(s): 758209060 ICD Code: I48.2 - CHRONIC ATRIAL FIBRILLATION Status: Acute Current Visit : Yes (3) Hypoxia SNOMED Code(s): 315754144, 950681125 ICD Code: R09.02 - HYPOXEMIA Status: Acute Current Visit: Yes (4) Dyspnea SNOMED Code(s): 375393424 ICD Code: R06.00 - DYSPNEA, UNSPECIFIED Status: Acute Current Visit: No Onset Date: 08/06/15 (5) Anticoagulated on Coumadin SNOMED Code(s): 46698293 ICD Code: Z51.81 - ENCOUNTER FOR THERAPEUTIC DRUG LEVEL MONITORING; Z79.01 - [facility] (CURRENT) USE OF ANTICOAGULANTS Status: Chronic Current Visit: No (6) Diabetes mellitus type 2, uncomplicated SNOMED Code(s): 707604372 ICD Code: E11.9 - TYPE 2 DIABETES MELLITUS WITHOUT COMPLICATIONS Status: Chronic Current Visit: No (7) Hypertension SNOMED Code(s): 60345979 ICD Code: I10 - ESSENTIAL (PRIMARY) HYPERTENSION Status: Chronic Current Visit: No - Patient Instructions Diet: Usual Diet as Tolerated Activity: As Tolerated - Discharge Plan Prescriptions/Med Rec: Budesonide [Pulmicort] 0.5 mg NEB BIDRT #60 neb Levofloxacin [Levaquin] 500 mg PO Q24H #7 tablet predniSONE [Prednisone] 10 mg PO DAILY #20 tablet Home Medications: Home Meds Colestipol [Colestipol HCl] 5 tab PO BID 11/16/13 [History] Fosinopril Sodium 40 mg PO DAILY 11/16/13 [History] Furosemide 20 mg PO BID 11/16/13 [History] Linagliptin [Tradjenta] 5 mg PO DAILY 11/16/13 [History] Omeprazole 20 mg PO DAILY 11/16/13 [History] Triamcinolone Acetonide [Kenalog 0.1% Crm] 1 applic .XX BID PRN 11/16/13 [ History] Warfarin Sodium [Jantoven] 2.5 mg PO .SUNTUWEDTHSAT 11/16/13 [History] glipiZIDE [Glucotrol XL] 5 mg PO BID 02/20/15 [History] Warfarin [Coumadin] 2.5 mg PO .MONFRI 08/06/15 [History] Metoprolol Succinate [Toprol XL] 75 mg PO BEDTIME #30 tab.er 08/09/15 [Rx] Albuterol [Proair HFA] 2 puff INH QID 10/07/15 [History] Ferrous Sulfate [Iron] 325 mg PO DAILY 10/07/15 [History] Albuterol/Ipratropium [DuoNeb 3.0-0.5 MG/3 ML] 3 ml NEB Q6HRRT neb 12/25/16 [Rx ] Budesonide [Pulmicort] 0.5 mg NEB BIDRT #60 neb 12/25/16 [Rx] Levofloxacin [Levaquin] 500 mg PO Q24H #7 tablet 12/25/16 [Rx] predniSONE [Prednisone] 10 mg PO DAILY #20 tablet 12/25/16 [Rx] Referrals: Dontrell Hernandez MD [Primary Care Provider] - (in 3-4 days) - Discharge Summary/Plan Comment DC Time >30 min.: No - General Info Date of Service: 12/25/16 - Review of Systems General: Denies: Fever Pulmonary: Reports: shortness of breath (with activity) Cardiovascular: Denies: Chest Pain Gastrointestinal: Denies: Abdominal pain Neurological: Denies: Confusion - Patient Data Vitals - Most Recent: Last Vital Signs Temp 36.6 C 12/25/16 07:00 Pulse 78 12/25/16 07:11 Resp 20 12/25/16 07:00 BP 90/65 12/25/16 07:00 Pulse Ox 100 12/25/16 07:00 Weight - Most Recent: 79.742 kg I&O - Last 24 hours: Intake & Output 12/24/16 12/25/16 12/25/16 22:59 06:59 14:59 Intake Total 600 Output Total 300 Balance 300 Lab Results - Last 24 hrs: Laboratory Results - last 24 hr 12/24/16 12/24/16 12/24/16 Range/Units 11:08 17:02 21:05 WBC (5.0-10.0) 10^3/uL RBC (4.2-5.4) 10^6/uL Hgb (12.0-16.0) g/dL Hct (37.0-47.0) % MCV (80-100) fL MCH (27.0-34.0) pg MCHC (33.0-35.0) g/dL Plt Count (150-450) 10^3/uL Neut % (Auto) (42.2-75.2) % Lymph % (Auto) (20.5-50.1) % [place] % (Auto) (2-8) % Eos % (Auto) (1.0-3.0) % Baso % (Auto) (0.0-1.0) % PT (9.0-12.0) SEC INR (0.9-1.2) Sodium (135-145) mmol/L Potassium (3.6-5.0) mmol/L Chloride (101-111) mmol/L Carbon Dioxide (21.0-31.0) mmol/L Anion Gap BUN (7-18) mg/dL Creatinine (0.6-1.3) mg/dL Est Cr Clr Drug Dosing mL/min Estimated GFR (MDRD) Glucose (74-105) mg/dL POC Glucose 244 H 222 H 251 H (83-110) mg/dl Calcium (8.4-10.2) mg/dl 12/25/16 12/25/16 12/25/16 Range/Units 06:15 06:15 06:15 WBC 15.4 H (5.0-10.0) 10^3/uL RBC 3.33 L (4.2-5.4) 10^6/uL Hgb 10.0 L (12.0-16.0) g/dL Hct 32.1 L (37.0-47.0) % MCV 96.4 (80-100) fL MCH 30.0 (27.0-34.0) pg MCHC 31.2 L (33.0-35.0) g/dL Plt Count 168 (150-450) 10^3/uL Neut % (Auto) 90.4 H (42.2-75.2) % Lymph % (Auto) 6.2 L (20.5-50.1) % [place] % (Auto) 3.3 (2-8) % Eos % (Auto) 0.0 L (1.0-3.0) % Baso % (Auto) 0.1 (0.0-1.0) % PT 27.8 H (9.0-12.0) SEC INR 2.8 H (0.9-1.2) Sodium 137 (135-145) mmol/L Potassium 4.2 (3.6-5.0) mmol/L Chloride 105 (101-111) mmol/L Carbon Dioxide 23.0 (21.0-31.0) mmol/L Anion Gap 13.2 BUN 62 H (7-18) mg/dL Creatinine 2.3 H (0.6-1.3) mg/dL Est Cr Clr Drug Dosing 19.48 mL/min Estimated GFR (MDRD) 21 Glucose 232 H (74-105) mg/dL POC Glucose (83-110) mg/dl Calcium 9.2 (8.4-10.2) mg/dl 12/25/16 Range/Units 07:51 WBC (5.0-10.0) 10^3/uL RBC (4.2-5.4) 10^6/uL Hgb (12.0-16.0) g/dL Hct (37.0-47.0) % MCV (80-100) fL MCH (27.0-34.0) pg MCHC (33.0-35.0) g/dL Plt Count (150-450) 10^3/uL Neut % (Auto) (42.2-75.2) % Lymph % (Auto) (20.5-50.1) % [place] % (Auto) (2-8) % Eos % (Auto) (1.0-3.0) % Baso % (Auto) (0.0-1.0) % PT (9.0-12.0) SEC INR (0.9-1.2) Sodium (135-145) mmol/L Potassium (3.6-5.0) mmol/L Chloride (101-111) mmol/L Carbon Dioxide (21.0-31.0) mmol/L Anion Gap BUN (7-18) mg/dL Creatinine (0.6-1.3) mg/dL Est Cr Clr Drug Dosing mL/min Estimated GFR (MDRD) Glucose (74-105) mg/dL POC Glucose 241 H (83-110) mg/dl Calcium (8.4-10.2) mg/dl Med Orders - Current: Current Medications Acetaminophen (Tylenol) 650 mg PO Q4H PRN PRN Reason: Pain (Mild 1-3)/fever Albuterol (Proventil Neb Soln) 2.5 mg NEB Q6HRRT PRN PRN Reason: sob Last Admin: 12/24/16 02:33 Dose: 2.5 mg Albuterol/Ipratropium (Duoneb 3.0-0.5 Mg/3 Ml) 3 ml NEB Q6HRRT [facility] Last Admin: 12/25/16 07:10 Dose: 3 ml Aspirin (Aspirin) 325 mg PO DAILY [facility] Last Admin: 12/25/16 08:39 Dose: 325 mg Budesonide (Pulmicort) 0.5 mg NEB BIDRT [facility] Last Admin: 12/25/16 07:10 Dose: 0.5 mg Docusate Sodium (Colace) 100 mg PO BID PRN PRN Reason: Constipation Ferrous Sulfate (Ferrous Sulfate) 325 mg PO DAILY [facility] Last Admin: 12/25/16 08:39 Dose: 325 mg Furosemide (Lasix) 20 mg PO BIDDIURETIC [facility] Last Admin: 12/25/16 08:39 Dose: 20 mg Glipizide (Glucotrol Xl) 5 mg PO BIDMEALS [facility] Last Admin: 12/25/16 08:39 Dose: 5 mg Insulin Aspart (Novolog) 0 unit SUBCUT QIDACANDBED [facility] PRN Reason: Protocol Last Admin: 12/25/16 08:41 Dose: 4 units Methylprednisolone Sodium Succinate (Solu-Medrol) 40 mg IVPUSH Q8H [facility] Last Admin: 12/25/16 08:40 Dose: 40 mg Metoprolol Succinate (Toprol Xl) 75 mg PO BEDTIME [facility] Last Admin: 12/24/16 21:10 Dose: 75 mg Omeprazole (Omeprazole) 20 mg PO DAILY@0600 [facility] Last Admin: 12/25/16 06:06 Dose: 20 mg Ondansetron HCl (Zofran Odt) 4 mg PO Q4H PRN PRN Reason: nausea, able to take PO Sodium Chloride (Saline Flush) 10 ml FLUSH ASDIRECTED PRN PRN Reason: Keep Vein Open Last Admin: 12/25/16 08:43 Dose: 10 ml Sodium Chloride (Saline Flush) 10 ml FLUSH ASDIRECTED PRN PRN Reason: Keep Vein Open Tramadol HCl (Ultram) 50 mg PO Q12HR PRN PRN Reason: Pain Warfarin Sodium (Pharmacy To Dose - Warfarin) 1 dose .XX ASDIRECTED [facility] Zolpidem Tartrate (Ambien) 5 mg PO BEDTIME PRN PRN Reason: Sleep Last Admin: 12/24/16 21:14 Dose: 5 mg Discontinued Medications Albuterol/Ipratropium (Duoneb 3.0-0.5 Mg/3 Ml) 3 ml NEB ONETIME ONE Stop: 12/23/16 17:41 Last Admin: 12/23/16 18:06 Dose: 3 ml Clopidogrel Bisulfate (Plavix) 75 mg PO DAILY [facility] Methylprednisolone Sodium Succinate (Solu-Medrol) 125 mg IVPUSH ONETIME ONE Stop: 12/23/16 17:41 Last Admin: 12/23/16 18:06 Dose: 125 mg Non-Formulary Medication (Fosinopril [Monopril]) 2 tab PO BID [facility] Last Admin: 12/24/16 12:33 Dose: Not Given Tramadol HCl (Ultram) 50 mg PO Q8H PRN PRN Reason: Pain Warfarin Sodium (Coumadin) 2.5 mg PO ONETIME ONE Stop: 12/24/16 14:01 Last Admin: 12/24/16 13:09 Dose: 2.5 mg - Exam General: Reports: alert Lungs: Reports: Normal respiratory effort, Decreased breath sounds Cardiovascular: Reports: Irregular Rhythm Abdomen: Reports: bowel sounds present, soft, no tenderness Back Exam: Reports: normal inspection Extremities: Reports: no edema Skin: Reports: warm, dry *Q Meaningful Use (DIS) - VTE *Q VTE Criteria *Q: - Stroke *Q Stroke Criteria *Q: - AMI *Q AMI Criteria *Q:
[2016-12-25 11:39] VITALS: BP 124/50
[2016-12-25] MEDS ORDERED: Warfarin 2 MG Tab PO ONE (14:00)
--- NOTE | 2017-01-12 13:08 | EKG ---
12/23/2016- [facility] - EKG done on a 76-year-old female showing atrial fibrillation, heart rate of 83 beats per minute. Poor R-wave progression. [facility] /[id number]
== END 2016-12-25 14:25 | disposition home or self-care (01) | DRG 189 ==
LOC: DL.ED 17:02 → DL.MS 19:16 → UNDOADMIN 19:16 → DL.MS 20:14
PROVIDERS: ADMIT Internal Medicine; ATTEND Internal Medicine
DX: J96.01 Acute respiratory failure with hypoxia (principal); R09.02 Hypoxemia; J44.1 Chronic obstructive pulmonary disease with (acute) exacerbation; I13.0 Hypertensive heart and chronic kidney disease with heart failure and stage 1 through stage 4 chronic kidney disease, or unspecified chronic kidney disease; I25.10 Atherosclerotic heart disease of native coronary artery without angina pectoris; E11.9 Type 2 diabetes mellitus without complications; N18.3 Chronic kidney disease, stage 3 (moderate); I50.9 Heart failure, unspecified; I27.2 Other secondary pulmonary hypertension; I48.2 Chronic atrial fibrillation; Z79.01 Long term (current) use of anticoagulants; Z79.52 Long term (current) use of systemic steroids; K21.9 Gastro-esophageal reflux disease without esophagitis; Z86.73 Personal history of transient ischemic attack (TIA), and cerebral infarction without residual deficits; Z87.891 Personal history of nicotine dependence
CPT/HCPCS: 36415; 71010; 80053; 81001; 83605; 83880; 84484; 85025; 85610; 87040 ×2; 93005; 93010; 94640; 96374; 99285; J2930; J7050; 80048; 82962; 99284; A9270-GY; J1815-GY; J2920; J7620-GY

== ENCOUNTER 2017-04-20 07:14 | Emergency (ER) | payer MEDICARE, MEDICAID ==
--- NOTE | 2017-04-20 07:21 | EDM.PDOC ---
ED HPI GENERAL MEDICAL PROBLEM - General Time Seen by Provider: 04/20/17 07:20 Source of Information: Reports: Patient History Limitations: Reports: No Limitations - History of Present Illness INITIAL COMMENTS - FREE TEXT/NARRATIVE: 77 yo female presents with shortness of breath. States that she become progressively worse over the last 2-3 weeks. Last night she was having difficullty breathing and went to the restroom and her nose began to bleed. Was able to control bleeding, however continued to c/o SOB. Pt states that she wears oxygen at night at 4L due to COPD. 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 Treatments - Related Data Allergies Allergy/AdvReac Type Severity Reaction Status Date / Time codeine Allergy Cannot Verified 04/20/17 07:19 Remember hydrochlorothiazide Allergy Cannot Verified 04/20/17 07:19 Remember Penicillins Allergy Rash Verified 04/20/17 07:19 Sulfa (Sulfonamide Allergy Rash Verified 04/20/17 07:19 Antibiotics) vitamin E (d-alpha Allergy Cannot Verified 04/20/17 07:19 tocopherol) Remember [vitamin E] calcium containing cmpd Allergy Cannot Uncoded 04/20/17 07:19 Remember seasonal allergies Allergy Cannot Uncoded 04/20/17 07:19 Remember Home Meds: Home Meds Colestipol [Colestipol HCl] 5 tab PO BID 11/16/13 [History] Fosinopril Sodium 40 mg PO DAILY 11/16/13 [History] Furosemide 40 mg PO BID 11/16/13 [History] Linagliptin [Tradjenta] 5 mg PO DAILY 11/16/13 [History] Omeprazole 20 mg PO DAILY 11/16/13 [History] Triamcinolone Acetonide [Kenalog 0.1% Crm] 1 applic .XX BID PRN 11/16/13 [ History] Warfarin Sodium [Jantoven] 2.5 mg PO .SUNTUWEDTHSAT 11/16/13 [History] glipiZIDE [Glucotrol XL] 5 mg PO BID 02/20/15 [History] Warfarin [Coumadin] 2.5 mg PO .MONFRI 08/06/15 [History] Metoprolol Succinate [Toprol XL] 75 mg PO BEDTIME #30 tab.er 08/09/15 [Rx] Albuterol [Proair HFA] 2 puff INH QID 10/07/15 [History] Ferrous Sulfate [Iron] 325 mg PO DAILY 10/07/15 [History] Albuterol/Ipratropium [DuoNeb 3.0-0.5 MG/3 ML] 3 ml NEB Q6HRRT neb 12/25/16 [Rx ] Budesonide [Pulmicort] 0.5 mg NEB BIDRT #60 neb 12/25/16 [Rx] predniSONE [Prednisone] 10 mg PO DAILY #20 tablet 12/25/16 [Rx] Aspirin 81 mg PO BRK 04/20/17 [History] Potassium Chloride 10 meq PO BID 04/20/17 [History] Past Medical History HEENT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: Cataract, Impaired Vision Other HEENT History: catarcts bilaterally Cardiovascular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: Afib, Bacterial Endocarditis, Blood Clots/VTE/ DVT, Heart Failure, High Cholesterol, Stents Respiratory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: COPD, Pneumonia, Recurrent, SOB Gastrointestinal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: GERD, Hiatal Hernia Genitourinary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: UTI, 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: , 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 Other OB/BYN History: vaginal deliveries x5 Musculoskeletal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: Arthritis Neurological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: CVA, Migraines Psychiatric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: None Endocrine/Metabolic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: Diabetes, Type II Hematologic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: Anemia, Anticoagulation Therapy, Blood Transfusion (s), Iron Deficiency Oncologic (Cancer)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: Breast Other Oncologic History: mastectomy on left Dermatologic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: Other (See Below) Other Dermatologic History: patient reports that she has an itchy rash uses cream for this - Infectious Disease History Infectious Disease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: Chicken Pox, Measles, Mumps - Past Surgical History HEENT Surgical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: Cataract Surgery Cardiovascular Surgical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: Other (See Below) Social & Family History - Family History Family Medical History: Noncontributory HEENT: Reports: Impaired Vision Cardiac: Reports: Afib, Other (See Below) Other Cardiac Family History: stroke Musculoskeletal: Reports: None Endocrine/Metabolic: Reports: Diabetes, type II - Tobacco Use Smoking Status *Q: Former Smoker Years of Tobacco use: 20 Packs/Tins Daily: 2 Used Tobacco, but Quit: Yes Month Tobacco Last Used: 20 yrs ago Second Hand Smoke Exposure: No - Caffeine Use Caffeine Use: Reports: Coffee - Alcohol Use Days Per Week of Alcohol Use: 0 - Recreational Drug Use Recreational Drug Use: No - Living Situation & Occupation Living situation: Reports: , with Spouse ED ROS GENERAL - Review of Systems Review Of Systems: See Below Constitutional: Reports: Decreased Appetite HEENT: Reports: Nosebleed Respiratory: Reports: Shortness of Breath, Cough ED EXAM, GENERAL - Physical Exam Exam: See Below Exam Limited By: No Limitations General Appearance: Alert, WD/WN, No Apparent Distress Eye Exam: Bilateral Eye: Normal Inspection, PERRL Nose: Other (Clotted blood bilateral nares) Throat/Mouth: Normal Inspection, Normal Lips, Normal Teeth, Normal Gums, Normal Oropharynx, Normal Voice, No Airway Compromise Head: Atraumatic, Normocephalic Neck: Normal Inspection, Supple, Non-Tender, Full Range of Motion Respiratory/Chest: Respiratory Distress (mild), Decreased Breath Sounds, Rales, Wheezing Cardiovascular: Normal Peripheral Pulses, Regular Rate, Rhythm, No Edema, No Gallop, No JVD, No Murmur, No Rub GI/Abdominal: Normal Bowel Sounds, Soft, Non-Tender, No Organomegaly, No Distention, No Abnormal Bruit, No Mass Neurological: Alert, Oriented, CN II-XII Intact, Normal Cognition, Normal Gait, No Motor/Sensory Deficits Skin Exam: Warm, Dry, Intact, Normal Color, No Rash Course - Vital Signs Last Recorded V/S: Last Vital Signs Temp 97.5 F 04/20/17 07:20 Pulse 85 04/20/17 07:53 Resp 36 H 04/20/17 07:20 BP 115/57 L 04/20/17 07:20 Pulse Ox 87 L 04/20/17 07:20 - Orders/Labs/Meds Orders: Active Orders 24 hr Category Date Time Status EKG Documentation Completion [RC] STAT Care 04/20/17 07:33 Active Oxygen Therapy [RC] PRN Care 04/20/17 07:34 Active RT Aerosol Therapy [RC] ASDIRECTED Care 04/20/17 07:38 Active Chest 1V Frontal [CR] Stat Exams 04/20/17 07:33 Taken Sodium Chloride 0.9% [Saline Flush] Med 04/20/17 07:33 Active 10 ml FLUSH ASDIRECTED PRN Saline Lock Insert [OM.PC] Stat Oth 04/20/17 07:33 Ordered Medication Orders Sodium Chloride (Saline Flush) 10 ml FLUSH ASDIRECTED PRN PRN Reason: Keep Vein Open Last Admin: 04/20/17 07:46 Dose: 10 ml Labs: Laboratory Tests 04/20/17 04/20/17 04/20/17 Range/Units 07:48 07:48 07:48 WBC 7.5 (5.0-10.0) 10^3/uL RBC 3.33 L (4.2-5.4) 10^6/uL Hgb 9.4 L (12.0-16.0) g/dL Hct 30.3 L (37.0-47.0) % MCV 91.0 (80-100) fL MCH 28.2 (27.0-34.0) pg MCHC 31.0 L (33.0-35.0) g/dL Plt Count 162 (150-450) 10^3/uL Neut % (Auto) 73.8 (42.2-75.2) % Lymph % (Auto) 11.1 L (20.5-50.1) % [place] % (Auto) 9.4 H (2-8) % Eos % (Auto) 5.3 H (1.0-3.0) % Baso % (Auto) 0.4 (0.0-1.0) % PT 100.4 H (9.0-12.0) SEC INR 9.9 H* (0.9-1.2) Sodium 142 (135-145) mmol/L Potassium 3.6 (3.6-5.0) mmol/L Chloride 103 (101-111) mmol/L Carbon Dioxide 27.0 (21.0-31.0) mmol/L Anion Gap 15.6 BUN 33 H (7-18) mg/dL Creatinine 1.8 H (0.6-1.3) mg/dL Est Cr Clr Drug Dosing 23.55 mL/min Estimated GFR (MDRD) 27 Glucose 181 H (74-105) mg/dL Calcium 9.0 (8.4-10.2) mg/dl Creatine Kinase (26-174) IU/L Creatine Kinase Index (0-2.4) % CK-MB (CK-2) (0.4-4.7) ng/mL Troponin I 0.02 (0.00-0.02) ng/ml B-Natriuretic Peptide 341 H (0-100) pg/ml 04/20/17 Range/Units 07:48 WBC (5.0-10.0) 10^3/uL RBC (4.2-5.4) 10^6/uL Hgb (12.0-16.0) g/dL Hct (37.0-47.0) % MCV (80-100) fL MCH (27.0-34.0) pg MCHC (33.0-35.0) g/dL Plt Count (150-450) 10^3/uL Neut % (Auto) (42.2-75.2) % Lymph % (Auto) (20.5-50.1) % [place] % (Auto) (2-8) % Eos % (Auto) (1.0-3.0) % Baso % (Auto) (0.0-1.0) % PT (9.0-12.0) SEC INR (0.9-1.2) Sodium (135-145) mmol/L Potassium (3.6-5.0) mmol/L Chloride (101-111) mmol/L Carbon Dioxide (21.0-31.0) mmol/L Anion Gap BUN (7-18) mg/dL Creatinine (0.6-1.3) mg/dL Est Cr Clr Drug Dosing mL/min Estimated GFR (MDRD) Glucose (74-105) mg/dL Calcium (8.4-10.2) mg/dl Creatine Kinase 79 (26-174) IU/L Creatine Kinase Index 3.0 H (0-2.4) % CK-MB (CK-2) 2.40 (0.4-4.7) ng/mL Troponin I (0.00-0.02) ng/ml B-Natriuretic Peptide (0-100) pg/ml Meds: Medications Generic Name Dose Route Start Last Admin Trade Name Freq PRN Reason Stop Dose Admin Sodium Chloride 10 ml 04/20/17 07:33 04/20/17 07:46 Saline Flush FLUSH 10 ml ASDIRECTED PRN Administration Keep Vein Open Discontinued Medications Generic Name Dose Route Start Last Admin Trade Name Freq PRN Reason Stop Dose Admin Albuterol 2.5 mg 04/20/17 07:35 04/20/17 07:45 Proventil Neb Soln NEB 04/20/17 07:36 2.5 mg ONETIME ONE Administration Phytonadione 10 mg/ Sodium 51 mls @ 100 mls/hr 04/20/17 08:36 Chloride IV 04/20/17 09:06 NOW ONE Methylprednisolone Sodium Succinate 125 mg 04/20/17 07:35 04/20/17 07:45 Solu-Medrol IVPUSH 04/20/17 07:36 125 mg ONETIME ONE Administration - Re-Assessments/Exams Free Text/Narrative Re-Assessment/Exam: 04/20/17 09:[address] Childers who accepts the patient. Departure - Departure Time of Disposition: 09:10 Disposition: DC/Tfer to [facility] 02 Condition: Fair Clinical Impression: Elevated INR (international normalized ratio) due to prior anticoagulant medication ingestion Congestive heart failure Qualifiers: Congestive heart failure type: unspecified congestive heart failure type Congestive heart failure chronicity: acute Qualified Code(s): I50.9 - Heart failure, unspecified - Discharge Information Forms: ED Department Discharge, Interfacility Transfer EMTALA - My Orders Last 24 Hours: My Active Orders 04/20/17 07:33 EKG Documentation Completion [RC] STAT Chest 1V Frontal [CR] Stat Sodium Chloride 0.9% [Saline Flush] 10 ml FLUSH ASDIRECTED PRN Saline Lock Insert [OM.PC] Stat 04/20/17 07:34 Oxygen Therapy [RC] PRN 04/20/17 07:38 RT Aerosol Therapy [RC] ASDIRECTED - Assessment/Plan Last 24 Hours: My Active Orders 04/20/17 07:33 EKG Documentation Completion [RC] STAT Chest 1V Frontal [CR] Stat Sodium Chloride 0.9% [Saline Flush] 10 ml FLUSH ASDIRECTED PRN Saline Lock Insert [OM.PC] Stat 04/20/17 07:34 Oxygen Therapy [RC] PRN 04/20/17 07:38 RT Aerosol Therapy [RC] ASDIRECTED
[2017-04-20 07:23] VITALS: BP 115/57
[2017-04-20] MEDS ORDERED: Sodium Chloride 0.9% 10 ML Syringe FLUSH PRN (07:33)
[2017-04-20] MEDS ORDERED: Albuterol 0.083% 2.5 MG/3 ML Neb Soln NEB ONE (07:35)
[2017-04-20] MEDS ORDERED: methylPREDNISolone Sodium Succinate 125 MG/2 ML SDV IVPUSH ONE (07:35)
[2017-04-20] MEDS ORDERED: Phytonadione 10 MG in Sodium Chloride 0.9% 50 ML IV ONE (08:36)
--- NOTE | 2017-04-21 15:16 | EKG ---
04/20/2017- [facility] HAND - EKG per my reading shows atrial fibrillation at the rate of 90s. [facility] /[id number]
== END 2017-04-20 09:40 ==
LOC: DL.ED 07:14
DX: I50.9 Heart failure, unspecified (principal); R79.89 Other specified abnormal findings of blood chemistry; H54.7 Unspecified visual loss; I48.91 Unspecified atrial fibrillation; J44.9 Chronic obstructive pulmonary disease, unspecified; K21.9 Gastro-esophageal reflux disease without esophagitis; G43.909 Migraine, unspecified, not intractable, without status migrainosus; E11.9 Type 2 diabetes mellitus without complications; D64.9 Anemia, unspecified; M19.90 Unspecified osteoarthritis, unspecified site; Z87.891 Personal history of nicotine dependence; Z88.5 Allergy status to narcotic agent; Z88.0 Allergy status to penicillin; Z88.2 Allergy status to sulfonamides; Z88.8 Allergy status to other drugs, medicaments and biological substances; Z79.899 Other long term (current) drug therapy; Z79.82 Long term (current) use of aspirin; Z87.440 Personal history of urinary (tract) infections; Z87.01 Personal history of pneumonia (recurrent); Z86.73 Personal history of transient ischemic attack (TIA), and cerebral infarction without residual deficits; Z79.01 Long term (current) use of anticoagulants
CPT/HCPCS: 36415; 71010; 80048; 82550; 82553; 83880; 84484; 85025; 85610; 93005; 93010; 94640; 94762; 96365; 96375; 99285; J2930; J3430; J7050; J7620; 99284

== ENCOUNTER 2017-07-01 07:10 | Inpatient (IN) | payer MEDICARE, MEDICAID, OTHER ==
--- NOTE | 2017-07-01 07:30 | EDM.PDOC ---
ED HPI GENERAL MEDICAL PROBLEM - General Chief Complaint: ENT Problem Stated Complaint: BY AMBULANCE Time Seen by Provider: 07/01/17 07:30 Source of Information: Reports: Patient, RN, RN Notes Reviewed History Limitations: Reports: No Limitations - History of Present Illness INITIAL COMMENTS - FREE TEXT/NARRATIVE: Pt presents to the ER per [place] ambulance service. She states she has had trouble breathing for the past few days, and had a nose bleed begin last night that she had difficulty stopping. She states she had this problem a while back and was transferred to , as her INR was elevated. She states she uses oxygen all the time, and does use ointment in her nose to keep it moist. Patient denies any recent illness, N/V/D, Fever, chills, chest pain. She states she has had sob and decreased appetite that past few days. Onset: Gradual - Related Data Allergies Allergy/AdvReac Type Severity Reaction Status Date / Time atorvastatin [From Lipitor] Allergy unknown Verified 07/01/17 08:24 codeine Allergy Cannot Verified 04/20/17 07:19 Remember hydrochlorothiazide Allergy Cannot Verified 04/20/17 07:19 Remember latex Allergy Rash Verified 07/01/17 08:24 nickel Allergy Rash Verified 07/01/17 08:24 nylon Allergy Rasj Verified 07/01/17 08:24 Penicillins Allergy Rash Verified 04/20/17 07:19 Sulfa (Sulfonamide Allergy Rash Verified 04/20/17 07:19 Antibiotics) vitamin E (d-alpha Allergy Cannot Verified 04/20/17 07:19 tocopherol) Remember [vitamin E] calcium containing cmpd Allergy Cannot Uncoded 04/20/17 07:19 Remember chlorine Allergy Rash Uncoded 07/01/17 08:24 seasonal allergies Allergy Cannot Uncoded 04/20/17 07:19 Remember Home Meds: Home Meds Colestipol [Colestipol HCl] 5 tab PO BID 11/16/13 [History] Furosemide 80 mg PO WITHBREAKFAST 11/16/13 [History] Linagliptin [Tradjenta] 5 mg PO DAILY 11/16/13 [History] Omeprazole 20 mg PO DAILY 11/16/13 [History] Triamcinolone Acetonide [Kenalog 0.1% Crm] 1 applic .XX BID PRN 11/16/13 [ History] glipiZIDE [Glucotrol XL] 5 mg PO BID 02/20/15 [History] Warfarin [Coumadin] 2.5 mg PO DAILY 08/06/15 [History] Albuterol [Proair HFA] 2 puff INH QID PRN 10/07/15 [History] Ferrous Sulfate [Iron] 325 mg PO DAILY 10/07/15 [History] Albuterol/Ipratropium [DuoNeb 3.0-0.5 MG/3 ML] 3 ml NEB Q6HRRT neb 12/25/16 [Rx ] Budesonide [Pulmicort] 0.5 mg NEB BIDRT #60 neb 12/25/16 [Rx] Aspirin 81 mg PO ASDIRECTED 04/20/17 [History] Potassium Chloride 30 meq PO DAILY 04/20/17 [History] Furosemide [Lasix] 60 mg PO WITHLUNCH 07/01/17 [History] Metoprolol Succinate [Toprol XL] 75 mg PO BEDTIME 07/01/17 [History] Montelukast [Singulair] 1 tab PO BEDTIME 07/01/17 [History] Multivitamin [Multivitamins] 1 cap PO DAILY 07/01/17 [History] Past Medical History HEENT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: Cataract, Impaired Vision Other HEENT History: catarcts bilaterally Cardiovascular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: Afib, Bacterial Endocarditis, Blood Clots/VTE/ DVT, Heart Failure, High Cholesterol, Stents Respiratory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: COPD, Pneumonia, Recurrent, SOB Gastrointestinal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: GERD, Hiatal Hernia Genitourinary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: UTI, Recurrent 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: , 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 Other OB/BYN History: vaginal deliveries x5 Musculoskeletal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: Arthritis Neurological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: CVA, Migraines Psychiatric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: None Endocrine/Metabolic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: Diabetes, Type II Hematologic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: Anemia, Anticoagulation Therapy, Blood Transfusion (s), Iron Deficiency Oncologic (Cancer)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: Breast Other Oncologic History: mastectomy on left Dermatologic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: Other (See Below) Other Dermatologic History: patient reports that she has an itchy rash uses cream for this - Infectious Disease History Infectious Disease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: Chicken Pox, Measles, Mumps - Past Surgical History HEENT Surgical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: Cataract Surgery Cardiovascular Surgical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: Other (See Below) Social & Family History - Family History Family Medical History: Noncontributory HEENT: Reports: Impaired Vision Cardiac: Reports: Afib, Other (See Below) Other Cardiac Family History: stroke Musculoskeletal: Reports: None Endocrine/Metabolic: Reports: Diabetes, type II - Tobacco Use Smoking Status *Q: Former Smoker Years of Tobacco use: 20 Packs/Tins Daily: 2 Used Tobacco, but Quit: Yes Month Tobacco Last Used: 20 yrs ago Second Hand Smoke Exposure: No - Caffeine Use Caffeine Use: Reports: Coffee - Alcohol Use Days Per Week of Alcohol Use: 0 - Recreational Drug Use Recreational Drug Use: No - Living Situation & Occupation Living situation: Reports: , with Spouse ED ROS GENERAL - Review of Systems Review Of Systems: ROS reveals no pertinent complaints other than HPI. ED EXAM, GENERAL - Physical Exam Exam: See Below Exam Limited By: No Limitations General Appearance: Alert, WD/WN, No Apparent Distress Eye Exam: Bilateral Eye: Normal Inspection Ears: Normal External Exam, Hearing Grossly Normal Nose: Nasal Drainage (dry blood, dry mucosa). No: Normal Mucosa, Nasal Deformity, Nasal Swelling, Nasal Flaring Throat/Mouth: Normal Inspection, Normal Voice, No Airway Compromise Head: Atraumatic, Normocephalic Neck: Normal Inspection, Non-Tender Respiratory/Chest: No Respiratory Distress, Crackles (Lower lobes bilaterally) Cardiovascular: Normal Peripheral Pulses, Irregularly Irregular Peripheral Pulses: 1+: Radial (L), Radial (R) GI/Abdominal: Normal Bowel Sounds, Soft, Non-Tender (Female) Exam: Deferred Rectal (Female) Exam: Deferred Back Exam: Normal Inspection, Full Range of Motion Extremities: Normal Inspection, Normal Range of Motion, Non-Tender, No Pedal Edema, Normal Capillary Refill Neurological: Alert, Oriented, Normal Cognition, No Motor/Sensory Deficits Psychiatric: Normal Affect, Normal Mood Skin Exam: Warm, Dry, Intact, Normal Color, No Rash Lymphatic: No Adenopathy Course - Vital Signs Last Recorded V/S: Last Vital Signs Temp 98.9 F 07/01/17 07:12 Pulse 82 07/01/17 09:34 Resp 26 H 07/01/17 07:12 BP 128/70 07/01/17 07:12 Pulse Ox 80 L 07/01/17 07:12 - Orders/Labs/Meds Orders: Active Orders 24 hr Category Date Time Status Peripheral IV Care [RC] . DIRECTED Care 07/01/17 07:27 Active RT Aerosol Therapy [RC] ASDIRECTED Care 07/01/17 09:19 Active Sodium Chloride 0.9% [Saline Flush] Med 07/01/17 07:26 Active 10 ml FLUSH ASDIRECTED PRN Peripheral IV Insertion Adult [OM.PC] Stat Oth 07/01/17 07:26 Ordered Medication Orders Sodium Chloride (Saline Flush) 10 ml FLUSH ASDIRECTED PRN PRN Reason: Keep Vein Open Last Admin: 07/01/17 07:42 Dose: 10 ml Labs: Laboratory Tests 07/01/17 07/01/17 07/01/17 Range/Units 07:40 07:40 07:40 WBC 8.3 (5.0-10.0) 10^3/uL RBC 3.20 L (4.2-5.4) 10^6/uL Hgb 9.2 L (12.0-16.0) g/dL Hct 29.7 L (37.0-47.0) % MCV 92.8 (80-100) fL MCH 28.8 (27.0-34.0) pg MCHC 31.0 L (33.0-35.0) g/dL Plt Count 117 L (150-450) 10^3/uL Neut % (Auto) 81.7 H (42.2-75.2) % Lymph % (Auto) 8.9 L (20.5-50.1) % [place] % (Auto) 7.7 (2-8) % Eos % (Auto) 1.6 (1.0-3.0) % Baso % (Auto) 0.1 (0.0-1.0) % PT 21.1 H D (9.0-12.0) SEC INR 2.1 H (0.9-1.2) Sodium 140 (135-145) mmol/L Potassium 3.9 (3.6-5.0) mmol/L Chloride 102 (101-111) mmol/L Carbon Dioxide 26.0 (21.0-31.0) mmol/L Anion Gap 15.9 BUN 31 H (7-18) mg/dL Creatinine 1.7 H (0.6-1.3) mg/dL Est Cr Clr Drug Dosing 25.94 mL/min Estimated GFR (MDRD) 29 BUN/Creatinine Ratio 18.23 Glucose 150 H (74-105) mg/dL Calcium 9.3 (8.4-10.2) mg/dl Total Bilirubin 1.0 (0.2-1.0) mg/dL AST 29 (10-42) IU/L ALT 18 (10-60) IU/L Alkaline Phosphatase 49 (42-121) IU/L B-Natriuretic Peptide (0-100) pg/ml Total Protein 8.1 (6.7-8.2) g/dl Albumin 3.9 (3.2-5.5) g/dl Globulin 4.2 Albumin/Globulin Ratio 0.93 07/01/17 Range/Units 07:40 WBC (5.0-10.0) 10^3/uL RBC (4.2-5.4) 10^6/uL Hgb (12.0-16.0) g/dL Hct (37.0-47.0) % MCV (80-100) fL MCH (27.0-34.0) pg MCHC (33.0-35.0) g/dL Plt Count (150-450) 10^3/uL Neut % (Auto) (42.2-75.2) % Lymph % (Auto) (20.5-50.1) % [place] % (Auto) (2-8) % Eos % (Auto) (1.0-3.0) % Baso % (Auto) (0.0-1.0) % PT (9.0-12.0) SEC INR (0.9-1.2) Sodium (135-145) mmol/L Potassium (3.6-5.0) mmol/L Chloride (101-111) mmol/L Carbon Dioxide (21.0-31.0) mmol/L Anion Gap BUN (7-18) mg/dL Creatinine (0.6-1.3) mg/dL Est Cr Clr Drug Dosing mL/min Estimated GFR (MDRD) BUN/Creatinine Ratio Glucose (74-105) mg/dL Calcium (8.4-10.2) mg/dl Total Bilirubin (0.2-1.0) mg/dL AST (10-42) IU/L ALT (10-60) IU/L Alkaline Phosphatase (42-121) IU/L B-Natriuretic Peptide 341 H (0-100) pg/ml Total Protein (6.7-8.2) g/dl Albumin (3.2-5.5) g/dl Globulin Albumin/Globulin Ratio Meds: Medications Generic Name Dose Route Start Last Admin Trade Name Amanda PRN Reason Stop Dose Admin Sodium Chloride 10 ml 07/01/17 07:26 07/01/17 07:42 Saline Flush FLUSH 10 ml ASDIRECTED PRN Administration Keep Vein Open Discontinued Medications Generic Name Dose Route Start Last Admin Trade Name Amanda PRN Reason Stop Dose Admin Albuterol/Ipratropium 3 ml 07/01/17 09:19 07/01/17 09:33 Duoneb 3.0-0.5 Mg/3 Ml NEB 07/01/17 09:20 3 ml ONETIME ONE Administration Methylprednisolone Sodium Succinate 125 mg 07/01/17 09:18 07/01/17 09:22 Solu-Medrol IVPUSH 07/01/17 09:19 125 mg ONETIME ONE Administration - Radiology Interpretation Free Text/Narrative:: Chest xray: chronic cardiomegaly and pleural parenchymal scarring left base unchanged since 20 Apr 2017 exam See rad report Departure - Departure Time of Disposition: 09:48 Disposition: Refer to Observation Condition: Fair Clinical Impression: COPD with acute exacerbation - Discharge Information Forms: ED Department Discharge - My Orders Last 24 Hours: My Active Orders 07/01/17 07:26 Sodium Chloride 0.9% [Saline Flush] 10 ml FLUSH ASDIRECTED PRN Peripheral IV Insertion Adult [OM.PC] Stat 07/01/17 07:27 Peripheral IV Care [RC] . DIRECTED 07/01/17 09:19 RT Aerosol Therapy [RC] ASDIRECTED - Assessment/Plan Last 24 Hours: My Active Orders 07/01/17 07:26 Sodium Chloride 0.9% [Saline Flush] 10 ml FLUSH ASDIRECTED PRN Peripheral IV Insertion Adult [OM.PC] Stat 07/01/17 07:27 Peripheral IV Care [RC] . DIRECTED 07/01/17 09:19 RT Aerosol Therapy [RC] ASDIRECTED
[2017-07-01] MEDS: Sodium Chloride 0.9% 10 ML Syringe FLUSH PRN ×3 (07:42→21:23)
[2017-07-01] MEDS ORDERED: methylPREDNISolone Sodium Succinate 125 MG/2 ML SDV IVPUSH ONE (09:18)
[2017-07-01] MEDS ORDERED: Albuterol/Ipratropium 3.0-0.5 MG/3 ML Neb Soln NEB ONE (09:19)
--- NOTE | 2017-07-01 09:30 | CR ---
Clinical history: 77-year-old female chest pain. Interpretation: Chronic cardiomegaly and pleural parenchymal scarring left base unchanged since 2017 exam. No new cephalization of vascular flow, signs of alveolar edema or dependent pleural fluid accumulatio n. No new lung mass, hilar lymphadenopathy or focal lobar pneumonia. No pneumothorax or free subdiaphragmatic air.
[2017-07-01] MEDS ORDERED: [UNRECOGNIZED DRUG - OTHER] TOP PRN (10:21)
[2017-07-01] MEDS ORDERED: TRIAMCINOLONE ACETONIDE 0.1% TOP PRN (10:21)
[2017-07-01] MEDS ORDERED: Albuterol 6.7 GM Inhaler INH PRN (10:21)
[2017-07-01] MEDS ORDERED: Warfarin 2.5 MG Tab PO SCH (10:27)
[2017-07-01] MEDS ORDERED: Acetaminophen 325 MG Tab PO PRN (10:28)
[2017-07-01] MEDS ORDERED: Albuterol 0.083% 2.5 MG/3 ML Neb Soln NEB PRN (10:28)
[2017-07-01] MEDS ORDERED: Polyethylene Glycol 3350 Powder 17 GM Packet PO PRN (10:28)
[2017-07-01] MEDS ORDERED: Ondansetron 4 MG/2 ML SDV IVPUSH PRN (10:28)
[2017-07-01] MEDS ORDERED: Morphine 2 MG/ML Syringe IVPUSH PRN (10:28)
[2017-07-01] MEDS ORDERED: Magnesium Hydroxide 400 MG/5 ML Susp 30 ML Cup PO PRN (10:28)
[2017-07-01] MEDS ORDERED: Aspirin 81 MG Tab.Chew PO SCH (10:30)
[2017-07-01] MEDS: Albuterol/Ipratropium 3.0-0.5 MG/3 ML Neb Soln NEB SCH ×5 (10:30→22:48)
--- NOTE | 2017-07-01 10:54 | PCM.HP ---
H&P History of Present Illness - General Date of Service: 07/01/17 Admit Problem/Dx: Admission Diagnosis/Problem Admission Diagnosis/Problem COPD, Severe chronic obstructive pulmonary disease Source of Information: Patient - History of Present Illness Initial Comments - Free Text/Narative: 77-year-old female with past medical history of chronic atrial fibrillation, COPD, congestive heart failure, cerebrovascular disease, hypertension, diabetes mellitus type 2 presented to the emergency room for having shortness breath for the last 2 days and is getting worse. She admitted wheezing but no cough, fever , or chills. Patient also admitted having nasal bleeding started last night about 5 PM and last about 1 hour. Bleeding stopped spontaneously and returned later this morning and lasted about 1 hour as well and stopped spontaneously before she came to the emergency room. Patient had worse nasal bleeding 1 months ago for which she went to [facility] and she was given vitamin K. Patient denies nausea, vomiting, chest pain, headache, upper respiratory symptoms, abdominal pain, diarrhea, urinary symptoms, lower extremities edema, new unilateral weakness, any other symptoms or concerns. According to ER provider patient's sats were in the low 80s on arrival and responded well to see and have liter of his oxygen and DuoNeb. Creatinine 1.7, at baseline. BNP 340, similar to what it was a few months ago. Hemoglobin 9.2, slightly lower than baseline. Chest x-ray did not show any acute findings but reported chronic similar findings. - Related Data Allergies/Adverse Reactions: Allergies Allergy/AdvReac Type Severity Reaction Status Date / Time atorvastatin [From Lipitor] Allergy unknown Verified 07/01/17 10:23 codeine Allergy Cannot Verified 07/01/17 10:23 Remember hydrochlorothiazide Allergy Cannot Verified 07/01/17 10:23 Remember latex Allergy Rash Verified 07/01/17 10:23 nickel Allergy Rash Verified 07/01/17 10:23 nylon Allergy Rasj Verified 07/01/17 10:23 Penicillins Allergy Rash Verified 07/01/17 10:23 Sulfa (Sulfonamide Allergy Rash Verified 07/01/17 10:23 Antibiotics) vitamin E (d-alpha Allergy Cannot Verified 07/01/17 10:23 tocopherol) Remember [vitamin E] calcium containing cmpd Allergy Cannot Uncoded 07/01/17 10:23 Remember chlorine Allergy Rash Uncoded 07/01/17 10:23 seasonal allergies Allergy Cannot Uncoded 07/01/17 10:23 Remember Home Medications: Home Meds Colestipol [Colestipol HCl] 5 tab PO BID 11/16/13 [History] Furosemide 80 mg PO WITHBREAKFAST 11/16/13 [History] Linagliptin [Tradjenta] 5 mg PO DAILY 11/16/13 [History] Omeprazole 20 mg PO DAILY 11/16/13 [History] Triamcinolone Acetonide [Kenalog 0.1% Crm] 1 applic .XX BID PRN 11/16/13 [ History] glipiZIDE [Glucotrol XL] 5 mg PO BID 02/20/15 [History] Warfarin [Coumadin] 2.5 mg PO DAILY 08/06/15 [History] Albuterol [Proair HFA] 2 puff INH QID PRN 10/07/15 [History] Ferrous Sulfate [Iron] 325 mg PO DAILY 10/07/15 [History] Albuterol/Ipratropium [DuoNeb 3.0-0.5 MG/3 ML] 3 ml NEB Q6HRRT neb 12/25/16 [Rx ] Budesonide [Pulmicort] 0.5 mg NEB BIDRT #60 neb 12/25/16 [Rx] Aspirin 81 mg PO DAILY 04/20/17 [History] Potassium Chloride 10 meq PO BID 04/20/17 [History] Furosemide 60 mg PO PCLUNCH 07/01/17 [History] Furosemide [Lasix] 80 mg PO QAM 07/01/17 [History] Metoprolol Succinate [Toprol XL] 75 mg PO BEDTIME 07/01/17 [History] Montelukast [Singulair] 10 mg PO BEDTIME 07/01/17 [History] Multivitamin [Multivitamins] 1 cap PO DAILY 07/01/17 [History] Past Medical History HEENT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: Cataract, Impaired Vision Other HEENT History: catarcts bilaterally Cardiovascular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: Afib, Bacterial Endocarditis, Blood Clots/VTE/ DVT, Heart Failure, High Cholesterol, Stents Respiratory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: COPD, Pneumonia, Recurrent, SOB Gastrointestinal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: GERD, Hiatal Hernia Genitourinary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: UTI, Recurrent [employer]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: , Spontaneous Other OB/BYN History: vaginal deliveries x5 Musculoskeletal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: Arthritis Neurological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: CVA, Migraines Psychiatric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: None Endocrine/Metabolic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: Diabetes, Type II Hematologic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: Anemia, Anticoagulation Therapy, Blood Transfusion (s), Iron Deficiency Oncologic (Cancer)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: Breast Other Oncologic History: mastectomy on left Dermatologic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: Other (See Below) Other Dermatologic History: patient reports that she has an itchy rash uses cream for this - Infectious Disease History Infectious Disease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: Chicken Pox, Measles, Mumps - Past Surgical History HEENT Surgical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: Cataract Surgery Cardiovascular Surgical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: Other (See Below) Social & Family History - Family History Family Medical History: Noncontributory HEENT: Reports: Impaired Vision Cardiac: Reports: Afib, Other (See Below) Other Cardiac Family History: stroke Musculoskeletal: Reports: None Endocrine/Metabolic: Reports: Diabetes, type II - Tobacco Use Smoking Status *Q: Former Smoker Years of Tobacco use: 20 Packs/Tins Daily: 2 Used Tobacco, but Quit: Yes Month Tobacco Last Used: 20 yrs ago Second Hand Smoke Exposure: No - Caffeine Use Caffeine Use: Reports: Coffee - Alcohol Use Days Per Week of Alcohol Use: 0 - Recreational Drug Use Recreational Drug Use: No - Living Situation & Occupation Living situation: Reports: , with Spouse H&P Review of Systems - Review of Systems: Review Of Systems: ROS reveals no pertinent complaints other than HPI. Exam - Exam Exam: See Below - Vital Signs Vital Signs: Last Vital Signs Temp 36.8 C 07/01/17 09:53 Pulse 91 07/01/17 09:53 Resp 22 H 07/01/17 09:53 BP 105/60 07/01/17 09:53 Pulse Ox 97 07/01/17 09:53 Weight: 76.657 kg - Exam General: Alert, Oriented, Cooperative, Mild Distress (Due to shortness of breath ). No: Moderate Distress, Severe Distress, Sedated, Lethargic, Obtunded HEENT: Conjunctiva Clear, EACs Clear, EOMI, Hearing Intact, Mucosa Moist & Willey , Nares Patent, Normal Nasal Septum, Posterior Pharynx Clear, Pupils Equal, Pupils Reactive, TMs Clear Neck: Supple, Trachea Midline Lungs: Decreased Breath Sounds (Globally), Rhonchi, Wheezing, Other (No accessory muscle usage). No: Crackles, Rales, Stridor Cardiovascular: Irregular Rhythm GI/Abdominal Exam: Normal Bowel Sounds, Soft, Non-Tender, No Organomegaly, No Distention, No Abnormal Bruit, No Mass (Female) Exam: Deferred Rectal (Female) Exam: Deferred Back Exam: Normal Inspection, Full Range of Motion Extremities: Normal Inspection, Normal Range of Motion, Non-Tender, No Pedal Edema, Normal Capillary Refill Skin: Dry, Intact. No: Rash Neurological: Cranial Nerves Intact, Reflexes Equal Bilateral Neuro Extensive - Mental Status: Alert, Oriented x3, Normal Mood/Affect, Normal Cognition, Memory Intact Neuro Extensive - Motor, Sensory, Reflexes: CN II-XII Intact Psychiatric: Alert, Normal Affect, Normal Mood - Patient Data Result Diagrams: 07/01/17 07:40 07/01/17 07:40 *Q Meaningful Use (ADM) - VTE *Q VTE Criteria *Q: - Stroke *Q Stroke Criteria *Q: - AMI *Q AMI Criteria *Q: - Problem List (1) COPD with acute exacerbation SNOMED Code(s): 404729199 ICD Code: J44.1 - CHRONIC OBSTRUCTIVE PULMONARY DISEASE W (ACUTE) EXACERBATION Status: Acute Current Visit: Yes (2) Chronic atrial fibrillation SNOMED Code(s): 662261459 ICD Code: I48.2 - CHRONIC ATRIAL FIBRILLATION Status: Chronic Current Visit: No (3) Congestive heart failure SNOMED Code(s): 00839060 ICD Code: I50.9 - HEART FAILURE, UNSPECIFIED Status: Chronic Current Visit: No Qualifiers: Congestive heart failure type: unspecified congestive heart failure type Congestive heart failure chronicity: acute Qualified Code(s): I50.9 - Heart failure, unspecified (4) Hypoxia SNOMED Code(s): 584426509 ICD Code: R09.02 - HYPOXEMIA Status: Acute Current Visit: No (5) Anemia SNOMED Code(s): 631271066 ICD Code: D64.9 - ANEMIA, UNSPECIFIED Status: Chronic Current Visit: No (6) Cerebrovascular disease SNOMED Code(s): 18601283 ICD Code: I67.9 - CEREBROVASCULAR DISEASE, UNSPECIFIED Status: Chronic Current Visit: No (7) Diabetes mellitus type 2, uncomplicated SNOMED Code(s): 961390192 ICD Code: E11.9 - TYPE 2 DIABETES MELLITUS WITHOUT COMPLICATIONS Status: Chronic Current Visit: No (8) Hypertension SNOMED Code(s): 24133823 ICD Code: I10 - ESSENTIAL (PRIMARY) HYPERTENSION Status: Chronic Current Visit: No (9) Pulmonary hypertension, moderate to severe SNOMED Code(s): 94390880 ICD Code: I27.2 - OTHER SECONDARY PULMONARY HYPERTENSION * DO NOT USE * Status: Chronic Current Visit: No Onset Date: 03/26/15 Problem List Initiated/Reviewed/Updated: Yes Orders Last 24hrs: Active Orders 24 hr Category Date Time Status Patient Status [ADT] Routine ADT 07/01/17 10:28 Ordered Bedrest Bathroom Privileges [RC] ASDIRECTED Care 07/01/17 10:28 Ordered Blood Glucose Check, Bedside [RC] QIDACANDBED Care 07/01/17 10:28 Ordered Height and Weight [RC] DAILY Care 07/01/17 10:28 Ordered Intake and Output [RC] Q6H Care 07/01/17 10:29 Ordered Notify Provider Vital Signs [RC] ASDIRECTED Care 07/01/17 10:30 Ordered Oxygen Therapy [RC] PRN Care 07/01/17 10:28 Ordered RT Aerosol Therapy [RC] ASDIRECTED Care 07/01/17 10:32 Ordered VTE/DVT Education [RC] PER UNIT ROUTINE Care 07/01/17 10:28 Ordered Vital Signs [RC] Q4H Care 07/01/17 10:28 Ordered Consistent Carbohydrate Diet [DIET] Diet 07/01/17 Breakfast Ordered BASIC METABOLIC PANEL,BMP [CHEM] AM Lab 07/02/17 05:11 Ordered CBC WITH AUTO DIFF [HEME] AM Lab 07/02/17 05:11 Ordered Acetaminophen [Tylenol] Med 07/01/17 10:28 Ordered 650 mg PO Q4H PRN Albuterol [Proventil Neb Soln] Med 07/01/17 10:28 Ordered 2.5 mg NEB Q2H PRN Albuterol/Ipratropium [DuoNeb 3.0-0.5 MG/3 ML] Med 07/01/17 10:30 Ordered 3 ml NEB Q4H Aspirin Med 07/01/17 10:30 Ordered 81 mg PO ASDIRECTED Budesonide [Pulmicort] Med 07/01/17 18:00 Ordered 0.5 mg NEB BIDRT Colestipol Med 07/01/17 21:00 Ordered 5 tab PO BID Ferrous Sulfate Med 07/01/17 10:24 Ordered 325 mg PO DAILY Furosemide [Lasix] Med 07/01/17 12:00 Ordered 60 mg PO WITHLUNCH Furosemide [Lasix] Med 07/01/17 10:24 Ordered 80 mg PO WITHBREAKFAST Linagliptin [Tradjenta] Med 07/01/17 10:25 Ordered 5 mg PO DAILY Magnesium Hydroxide [Milk of Magnesia] Med 07/01/17 10:28 Ordered 30 ml PO Q12H PRN Metoprolol Succinate [Toprol XL] Med 07/01/17 21:00 Ordered 75 mg PO BEDTIME Montelukast [Singulair] Med 07/01/17 21:00 Ordered 1 tab PO BEDTIME Morphine Med 07/01/17 10:28 Ordered 2 mg IVPUSH Q2H PRN Multivitamin [Multivitamins] Med 07/02/17 09:00 Ordered 1 cap PO DAILY Omeprazole Med 07/01/17 10:26 Ordered 20 mg PO DAILY Ondansetron [Zofran] Med 07/01/17 10:28 Ordered 4 mg IVPUSH Q6H PRN Polyethylene Glycol 3350 [MiraLAX] Med 07/01/17 10:28 Ordered 17 gm PO DAILY PRN Potassium Chloride [Potassium Chloride] Med 07/01/17 10:26 Ordered 30 meq PO DAILY Triamcinolone Acetonide Med 07/01/17 10:21 Ordered 1 applic .XX BID PRN Warfarin Pharmacy to Dose [Pharmacy to Dose - Warfarin] Med 07/01/17 10:45 Ordered 1 dose .XX ASDIRECTED Warfarin [Coumadin] Med 07/02/17 10:27 Ordered 2.5 mg PO DAILY Zolpidem [Ambien] Med 07/01/17 10:28 Ordered 5 mg PO BEDTIME PRN cefTRIAXone [Rocephin] 1 gm Med 07/01/17 10:45 Ordered Sodium Chloride 0.9% [Normal Saline] 50 ml IV Q24H glipiZIDE [Glucotrol XL] Med 07/01/17 10:25 Ordered 5 mg PO BID methylPREDNISolone Sod Succ [Solu-MEDROL] Med 07/01/17 21:00 Ordered 125 mg IVPUSH Q12H Ice Bag [Ice Therapy] [OM.PC] Routine Oth 07/01/17 10:40 Ordered Resuscitation Status Routine Resus Stat 07/01/17 10:28 Ordered Medication Orders Acetaminophen (Tylenol) 650 mg PO Q4H PRN PRN Reason: Pain (Mild 1-3)/fever Albuterol (Proventil Neb Soln) 2.5 mg NEB Q2H PRN PRN Reason: shortness of breath/wheezing Albuterol/Ipratropium (Duoneb 3.0-0.5 Mg/3 Ml) 3 ml NEB Q4HRRT [facility] Aspirin (Aspirin) 81 mg PO ASDIRECTED [facility] Budesonide (Pulmicort) 0.5 mg NEB BIDRT [facility] Ferrous Sulfate (Ferrous Sulfate) 325 mg PO DAILY [facility] Furosemide (Lasix) 80 mg PO WITHBREAKFAST [facility] Furosemide (Lasix) 60 mg PO WITHLUNCH [facility] Glipizide (Glucotrol Xl) 5 mg PO BIDMEALS [facility] Ceftriaxone Sodium 1 gm/ (Sodium Chloride) 50 mls @ 100 mls/hr IV Q24H [facility] Magnesium Hydroxide (Milk Of Magnesia) 30 ml PO Q12H PRN PRN Reason: Constipation Methylprednisolone Sodium Succinate (Solu-Medrol) 125 mg IVPUSH Q12HR [facility] Metoprolol Succinate (Toprol Xl) 75 mg PO BEDTIME [facility] Montelukast Sodium (Singulair) 10 mg PO BEDTIME [facility] Morphine Sulfate (Morphine) 2 mg IVPUSH Q2H PRN PRN Reason: Pain (severe 7-10) Multivitamins (Thera) 1 each PO DAILY [facility] Non-Formulary Medication (Colestipol) 5 tab PO BID [facility] Non-Formulary Medication (Linagliptin [Tradjenta]) 5 mg PO DAILY [facility] Non-Formulary Medication (Triamcinolone Acetonide) 1 applic .XX BID PRN PRN Reason: Itching Omeprazole (Omeprazole) 20 mg PO ACBRK [facility] Ondansetron HCl (Zofran) 4 mg IVPUSH Q6H PRN PRN Reason: Nausea/Vomiting Polyethylene Glycol (Miralax) 17 gm PO DAILY PRN PRN Reason: Constipation Potassium Chloride (Klor-Con 10) 30 meq PO DAILY [facility] Sodium Chloride (Saline Flush) 10 ml FLUSH ASDIRECTED PRN PRN Reason: Keep Vein Open Last Admin: 07/01/17 07:42 Dose: 10 ml Warfarin Sodium (Pharmacy To Dose - Warfarin) 1 dose .XX ASDIRECTED [facility] Warfarin Sodium (Coumadin) 2.5 mg PO DAILY [facility] Zolpidem Tartrate (Ambien) 5 mg PO BEDTIME PRN PRN Reason: Sleep Assessment/Plan Comment:: Impression 77-year-old female with history of COPD presented with the COPD exacerbation and nasal bleeding. COPD exacerbation -DuoNeb every 4 hours albuterol every 2 hours as needed Continue Pulmicort -Solu Medrol 125 mg twice a day -Rocephin Nasal bleeding Patient does not want to take vitamin K -We'll hold warfarin dose today Ice packs as needed Anemia She has chronic anemia and hemoglobin is slightly below baseline Recheck hemoglobin in the morning and if she develops nasal bleeding again Chronic atrial fibrillation Continue metoprolol and warfarin Chronic Congestive heart failure Continue Lasix and metoprolol succinate Hypertension Continue metoprolol succinate DVT prophylaxis: She is on Coumadin She wants to be DNR for CODE STATUS
[2017-07-01] MEDS: cefTRIAXone 1 GM in Sodium Chloride 0.9% 50 ML IV SCH (13:12)
[2017-07-01] MEDS: Omeprazole 20 MG Cap.CR PO SCH (13:12)
[2017-07-01] MEDS: Multivitamins,Therapeutic Tab PO SCH (13:13)
[2017-07-01] MEDS: Potassium Chloride 10 MEQ Tab.ER PO SCH (13:13)
[2017-07-01] MEDS: Ferrous Sulfate 325 MG Tab PO SCH (13:13)
[2017-07-01] MEDS: glipiZIDE 5 MG Tab.ER PO SCH ×2 (13:13→18:13)
[2017-07-01] MEDS: Furosemide 80 MG Tab PO SCH (13:14)
[2017-07-01] MEDS: Furosemide 20 MG Tab PO SCH (16:39)
[2017-07-01] MEDS: LINAGLIPTIN 5 MG PO SCH (16:50)
[2017-07-01] MEDS: Budesonide 0.5 MG/2 ML Neb Susp NEB SCH (18:13)
[2017-07-01] MEDS: Insulin Aspart 100 Units/ML 3 ML Pen SUBCUT SCH ×2 (18:13→21:30)
[2017-07-01] MEDS: Montelukast 10 MG Tab PO SCH (21:03)
[2017-07-01] MEDS: Metoprolol Succinate 50 MG Tab.ER PO SCH (21:05)
[2017-07-01] MEDS: COLESTIPOL 1 GM PO SCH (21:10)
[2017-07-01] MEDS: methylPREDNISolone Sodium Succinate 125 MG/2 ML SDV IVPUSH SCH (21:11)
[2017-07-01] MEDS: Zolpidem 5 MG Tab PO PRN (23:32)
[2017-07-02] MEDS: Albuterol/Ipratropium 3.0-0.5 MG/3 ML Neb Soln NEB SCH ×6 (02:44→22:24)
[2017-07-02] MEDS: Omeprazole 20 MG Cap.CR PO SCH (06:03)
[2017-07-02] MEDS: Insulin Aspart 100 Units/ML 3 ML Pen SUBCUT SCH ×4 (08:12→20:59)
[2017-07-02] MEDS: Budesonide 0.5 MG/2 ML Neb Susp NEB SCH ×2 (08:13→17:46)
[2017-07-02] MEDS: Multivitamins,Therapeutic Tab PO SCH (08:13)
[2017-07-02] MEDS: Ferrous Sulfate 325 MG Tab PO SCH (08:13)
[2017-07-02] MEDS: methylPREDNISolone Sodium Succinate 125 MG/2 ML SDV IVPUSH SCH ×2 (08:13→21:10)
[2017-07-02] MEDS: Furosemide 80 MG Tab PO SCH (08:14)
[2017-07-02] MEDS: glipiZIDE 5 MG Tab.ER PO SCH ×2 (08:14→17:47)
[2017-07-02] MEDS: Aspirin 81 MG Tab.Chew PO SCH (08:14)
[2017-07-02] MEDS: Potassium Chloride 10 MEQ Tab.ER PO SCH (08:14)
--- NOTE | 2017-07-02 08:21 | PCM.PN ---
- General Info Date of Service: 07/02/17 Admission Dx/Problem (Free Text): Admission Diagnosis/Problem Admission Diagnosis/Problem COPD, Severe chronic obstructive pulmonary disease Subjective Update: Patient stated that she is feeling better. She states she is still 60% far from her baseline however she is breathing better and her energy is somewhat better but she is still feeling generally weak. Still having occasional cough. She has not had nasal bleeding since admission. She denies chest pain, nausea, vomiting , fever, chills, abdominal pain, any other symptoms or concerns. - Patient Data Vitals - Most Recent: Last Vital Signs Temp 36.0 C 07/02/17 07:00 Pulse 83 07/02/17 07:00 Resp 22 H 07/02/17 07:00 BP 110/68 07/02/17 07:00 Pulse Ox 98 07/02/17 07:00 Weight - Most Recent: 76.022 kg I&O - Last 24 Hours: Intake & Output 07/01/17 07/02/17 07/02/17 22:59 06:59 14:59 Intake Total 870 900 Output Total 600 875 Balance 270 25 Lab Results Last 24 Hours: Laboratory Results - last 24 hr 07/01/17 07/01/17 07/01/17 Range/Units 11:49 17:09 20:59 WBC (5.0-10.0) 10^3/uL RBC (4.2-5.4) 10^6/uL Hgb (12.0-16.0) g/dL Hct (37.0-47.0) % MCV (80-100) fL MCH (27.0-34.0) pg MCHC (33.0-35.0) g/dL Plt Count (150-450) 10^3/uL Neut % (Auto) (42.2-75.2) % Lymph % (Auto) (20.5-50.1) % [place] % (Auto) (2-8) % Eos % (Auto) (1.0-3.0) % Baso % (Auto) (0.0-1.0) % Sodium (138-146) mmol/L Potassium (3.5-4.9) mmol/L Chloride (98-109) mmol/L Carbon Dioxide (24-29) mmol/L Anion Gap BUN (8-26) mg/dL Creatinine (0.6-1.3) mg/dL Est Cr Clr Drug Dosing mL/min Estimated GFR (MDRD) Glucose (70-105) mg/dL POC Glucose 159 H 284 H 410 H* (83-110) mg/dl Calcium 07/02/17 07/02/17 07/02/17 Range/Units 06:00 06:00 07:57 WBC 7.4 (5.0-10.0) 10^3/uL RBC 3.17 L (4.2-5.4) 10^6/uL Hgb 8.9 L (12.0-16.0) g/dL Hct 29.0 L (37.0-47.0) % MCV 91.5 (80-100) fL MCH 28.1 (27.0-34.0) pg MCHC 30.7 L (33.0-35.0) g/dL Plt Count 122 L (150-450) 10^3/uL Neut % (Auto) 92.1 H (42.2-75.2) % Lymph % (Auto) 5.3 L (20.5-50.1) % [place] % (Auto) 2.4 (2-8) % Eos % (Auto) 0.1 L (1.0-3.0) % Baso % (Auto) 0.1 (0.0-1.0) % Sodium 138 (138-146) mmol/L Potassium 4.0 (3.5-4.9) mmol/L Chloride 100 (98-109) mmol/L Carbon Dioxide 26 (24-29) mmol/L Anion Gap 16.0 BUN 39 H (8-26) mg/dL Creatinine 1.7 H (0.6-1.3) mg/dL Est Cr Clr Drug Dosing 25.94 mL/min Estimated GFR (MDRD) 29 Glucose 387 H (70-105) mg/dL POC Glucose 325 H (83-110) mg/dl Calcium 1.19 Med Orders - Current: Current Medications Acetaminophen (Tylenol) 650 mg PO Q4H PRN PRN Reason: Pain (Mild 1-3)/fever Albuterol (Proventil Neb Soln) 2.5 mg NEB Q2H PRN PRN Reason: shortness of breath/wheezing Albuterol/Ipratropium (Duoneb 3.0-0.5 Mg/3 Ml) 3 ml NEB Q4HRRT [facility] Last Admin: 07/02/17 06:31 Dose: 3 ml Aspirin (Aspirin) 81 mg PO DAILY [facility] Budesonide (Pulmicort) 0.5 mg NEB BIDRT [facility] Last Admin: 07/01/17 18:13 Dose: 0.5 mg Ferrous Sulfate (Ferrous Sulfate) 325 mg PO DAILY [facility] Last Admin: 07/01/17 13:13 Dose: 325 mg Furosemide (Lasix) 80 mg PO WITHBREAKFAST [facility] Last Admin: 07/01/17 13:14 Dose: 80 mg Furosemide (Lasix) 60 mg PO WITHLUNCH [facility] Last Admin: 07/01/17 16:39 Dose: 60 mg Glipizide (Glucotrol Xl) 5 mg PO BIDMEALS [facility] Last Admin: 07/01/17 18:13 Dose: 5 mg Ceftriaxone Sodium 1 gm/ (Sodium Chloride) 50 mls @ 100 mls/hr IV Q24H [facility] Last Admin: 07/01/17 13:12 Dose: 100 mls/hr Insulin Aspart (Novolog) 0 unit SUBCUT QIDACANDBED [facility] PRN Reason: Protocol Last Admin: 07/01/17 21:30 Dose: 8 units Magnesium Hydroxide (Milk Of Magnesia) 30 ml PO Q12H PRN PRN Reason: Constipation Methylprednisolone Sodium Succinate (Solu-Medrol) 125 mg IVPUSH Q12HR [facility] Last Admin: 07/01/17 21:11 Dose: 125 mg Metoprolol Succinate (Toprol Xl) 75 mg PO BEDTIME [facility] Last Admin: 07/01/17 21:05 Dose: 75 mg Montelukast Sodium (Singulair) 10 mg PO BEDTIME [facility] Last Admin: 07/01/17 21:03 Dose: 10 mg Morphine Sulfate (Morphine) 2 mg IVPUSH Q2H PRN PRN Reason: Pain (severe 7-10) Multivitamins (Thera) 1 each PO DAILY [facility] Last Admin: 07/01/17 13:13 Dose: 1 each Colestipol 1 Gram (Tab Own Med) 5 tab PO BID [facility] Last Admin: 07/01/17 21:10 Dose: Not Given Linagliptin [ Tradjenta] 5 Mg Own Med 5 mg PO DAILY [facility] Last Admin: 07/01/17 16:50 Dose: Not Given Omeprazole (Omeprazole) 20 mg PO ACBRK [facility] Last Admin: 07/02/17 06:03 Dose: 20 mg Ondansetron HCl (Zofran) 4 mg IVPUSH Q6H PRN PRN Reason: Nausea/Vomiting Polyethylene Glycol (Miralax) 17 gm PO DAILY PRN PRN Reason: Constipation Potassium Chloride (Klor-Con 10) 30 meq PO DAILY [facility] Last Admin: 07/01/17 13:13 Dose: 30 meq Sodium Chloride (Saline Flush) 10 ml FLUSH ASDIRECTED PRN PRN Reason: Keep Vein Open Last Admin: 07/01/17 21:23 Dose: 10 ml Triamcinolone Acetonide (Triamcinolone Acetonide 0.1% Crm) 0 gm TOP BID PRN PRN Reason: Itching Warfarin Sodium (Pharmacy To Dose - Warfarin) 1 dose .XX ASDIRECTED [facility] Zolpidem Tartrate (Ambien) 5 mg PO BEDTIME PRN PRN Reason: Sleep Last Admin: 07/01/17 23:32 Dose: 5 mg Discontinued Medications Albuterol (Proventil Hfa) gm INH QID PRN PRN Reason: breathing Albuterol/Ipratropium (Duoneb 3.0-0.5 Mg/3 Ml) 3 ml NEB ONETIME ONE Stop: 07/01/17 09:20 Last Admin: 07/01/17 09:33 Dose: 3 ml Aspirin (Aspirin) 81 mg PO ASDIRECTED [facility] Methylprednisolone Sodium Succinate (Solu-Medrol) 125 mg IVPUSH ONETIME ONE Stop: 07/01/17 09:19 Last Admin: 07/01/17 09:22 Dose: 125 mg Warfarin Sodium (Coumadin) 2.5 mg PO DAILY [facility] Last Admin: 07/01/17 11:27 Dose: Not Given Warfarin Sodium (Coumadin) 2.5 mg PO DAILY [facility] - Exam General: Alert, Oriented, Cooperative, No Acute Distress. No: Sedated, Lethargic, Obtunded HEENT: Pupils Equal, Pupils Reactive, EOMI, Mucous Membr. Moist/[place] Neck: Supple, Trachea Midline, No JVD Lungs: Decreased Breath Sounds (Globally, slightly improved from yesterday), Other (Still mildly tachypnec when she talks). No: Rub, Stridor, Wheezing Cardiovascular: Regular Rate, Regular Rhythm GI/Abdominal Exam: Normal Bowel Sounds, Soft, Non-Tender, No Organomegaly, No Distention, No Abnormal Bruit, No Mass (Female) Exam: Deferred Back Exam: Normal Inspection, Full Range of Motion Extremities: Normal Inspection, Normal Range of Motion, Non-Tender, No Pedal Edema, Normal Capillary Refill Skin: Dry, Intact. No: Rash Neurological: No New Focal Deficit Psy/Mental Status: Alert, Normal Affect, Normal Mood - Problem List & Annotations (1) COPD with acute exacerbation SNOMED Code(s): 050047504 Code(s): J44.1 - CHRONIC OBSTRUCTIVE PULMONARY DISEASE W (ACUTE) EXACERBATION Status: Acute Current Visit: Yes (2) Chronic atrial fibrillation SNOMED Code(s): 975127303 Code(s): I48.2 - CHRONIC ATRIAL FIBRILLATION Status: Chronic Current Visit: No (3) Congestive heart failure SNOMED Code(s): 56056357 Code(s): I50.9 - HEART FAILURE, UNSPECIFIED Status: Chronic Current Visit : No Qualifiers: Congestive heart failure type: unspecified congestive heart failure type Congestive heart failure chronicity: acute Qualified Code(s): I50.9 - Heart failure, unspecified (4) Hypoxia SNOMED Code(s): 371848677 Code(s): R09.02 - HYPOXEMIA Status: Acute Current Visit: No (5) Anemia SNOMED Code(s): 307614241 Code(s): D64.9 - ANEMIA, UNSPECIFIED Status: Chronic Current Visit: No (6) Cerebrovascular disease SNOMED Code(s): 62081330 Code(s): I67.9 - CEREBROVASCULAR DISEASE, UNSPECIFIED Status: Chronic Current Visit: No (7) Diabetes mellitus type 2, uncomplicated SNOMED Code(s): 134470773 Code(s): E11.9 - TYPE 2 DIABETES MELLITUS WITHOUT COMPLICATIONS Status: Chronic Current Visit: No (8) Hypertension SNOMED Code(s): 27325442 Code(s): I10 - ESSENTIAL (PRIMARY) HYPERTENSION Status: Chronic Current Visit: No (9) Pulmonary hypertension, moderate to severe SNOMED Code(s): 12837880 Code(s): I27.2 - OTHER SECONDARY PULMONARY HYPERTENSION * DO NOT USE * Status: Chronic Current Visit: No Onset Date: 08/04/15 - Problem List Review Problem List Initiated/Reviewed/Updated: Yes - My Orders Last 24 Hours: My Active Orders 07/01/17 10:28 Resuscitation Status Routine 07/01/17 10:40 Ice Bag [Ice Therapy] [OM.PC] Routine 07/01/17 10:45 Warfarin Pharmacy to Dose [Pharmacy to Dose - Warfarin] 1 dose .XX ASDIRECTED 07/01/17 10:57 Incentive Spirometry [RT Incentive Spirometry] [RC] ASDIRECTED 07/01/17 11:00 cefTRIAXone [Rocephin] 1 gm Sodium Chloride 0.9% [Normal Saline] 50 ml IV Q24H 07/01/17 17:00 Insulin Aspart [NovoLOG] See Protocol SUBCUT QIDACANDBED 07/01/17 21:00 methylPREDNISolone Sod Succ [Solu-MEDROL] 125 mg IVPUSH Q12HR 07/02/17 08:12 Patient Status [ADT] Routine 07/02/17 08:13 OT Evaluation and Treatment [CONS] Routine PT Evaluation and Treatment [CONS] Routine 07/02/17 09:00 Aspirin 81 mg PO DAILY 07/03/17 05:11 BASIC METABOLIC PANEL,BMP [CHEM] AM CBC WITH AUTO DIFF [HEME] AM INR,PT,PROTHROMBIN TIME [COAG] AM - Plan Plan:: Impression 77-year-old female with history of COPD presented with the COPD exacerbation and nasal bleeding. Patient initially was admitted for observation but she qualifies for acute inpatient admission. I'm expecting her to need more physical therapy and longer acute management for her COPD than I expected on admission COPD exacerbation -Continue DuoNeb every 4 hours Continue albuterol every 2 hours as needed Continue Pulmicort -Continue Solu Medrol 125 mg twice a day -Rocephin Nasal bleeding Patient did not want to take vitamin K Warfarin was held only on the day of admission. -No further bleeding -Continue warfarin, dosing per pharmacy Ice packs as needed Generalized weakness Multifactorial Consulted physical and occupational therapy to evaluate and treat Anemia She has chronic anemia and hemoglobin is slightly below baseline -Hemoglobin is slightly lower today, however no further bleeding is there. We' ll continue to watch her hemoglobin. Diabetes mellitus type 2 Blood glucose is elevated after being started on Solu Medrol Continue her home medications -Change sliding scale insulin from low to medium regimen Continue her home Ferrous sulfate Chronic atrial fibrillation Continue metoprolol and warfarin Chronic Congestive heart failure Continue Lasix and metoprolol succinate Hypertension Continue metoprolol succinate DVT prophylaxis: She is on Coumadin, so no further DVT prophylaxis is needed She wants to be DNR for CODE STATUS
[2017-07-02] MEDS: LINAGLIPTIN 5 MG PO SCH (08:22)
[2017-07-02] MEDS: COLESTIPOL 1 GM PO SCH ×3 (08:22→21:20)
[2017-07-02] MEDS ORDERED: Warfarin 2.5 MG Tab PO SCH (10:27)
[2017-07-02] MEDS: Furosemide 20 MG Tab PO SCH (11:20)
[2017-07-02] MEDS: Sodium Chloride 0.9% 10 ML Syringe FLUSH PRN ×3 (11:21→21:17)
[2017-07-02] MEDS: cefTRIAXone 1 GM in Sodium Chloride 0.9% 50 ML IV SCH (11:21)
[2017-07-02] MEDS ORDERED: Warfarin 2.5 MG Tab PO ONE (14:00)
[2017-07-02] MEDS: Montelukast 10 MG Tab PO SCH (21:19)
[2017-07-02] MEDS: Metoprolol Succinate 50 MG Tab.ER PO SCH (21:24)
[2017-07-02] MEDS: Zolpidem 5 MG Tab PO PRN (22:22)
[2017-07-03] MEDS: Albuterol/Ipratropium 3.0-0.5 MG/3 ML Neb Soln NEB SCH ×5 (02:36→17:56)
[2017-07-03] MEDS: Omeprazole 20 MG Cap.CR PO SCH (05:49)
[2017-07-03] MEDS: Budesonide 0.5 MG/2 ML Neb Susp NEB SCH ×2 (07:07→17:56)
[2017-07-03] MEDS: Potassium Chloride 10 MEQ Tab.ER PO SCH (08:26)
[2017-07-03] MEDS: Multivitamins,Therapeutic Tab PO SCH (08:26)
[2017-07-03] MEDS: Furosemide 80 MG Tab PO SCH (08:26)
[2017-07-03] MEDS: predniSONE 20 MG Tab PO SCH (08:26)
[2017-07-03] MEDS: Ferrous Sulfate 325 MG Tab PO SCH (08:27)
[2017-07-03] MEDS: glipiZIDE 5 MG Tab.ER PO SCH ×2 (08:27→17:22)
[2017-07-03] MEDS: Aspirin 81 MG Tab.Chew PO SCH (08:27)
[2017-07-03] MEDS: LINAGLIPTIN 5 MG PO SCH (08:28)
[2017-07-03] MEDS: methylPREDNISolone Sodium Succinate 125 MG/2 ML SDV IVPUSH SCH (08:29)
[2017-07-03] MEDS: Sodium Chloride 0.9% 10 ML Syringe FLUSH PRN ×2 (08:29→10:53)
[2017-07-03] MEDS: Insulin Aspart 100 Units/ML 3 ML Pen SUBCUT SCH ×4 (08:33→21:20)
--- NOTE | 2017-07-03 09:01 | PCM.PN ---
- General Info Date of Service: 07/03/17 Admission Dx/Problem (Free Text): Admission Diagnosis/Problem Admission Diagnosis/Problem COPD, Severe chronic obstructive pulmonary disease Subjective Update: Patient stated that she is feeling better. She almost feels back to normal. Still having occasional cough and SOB with activities. She has not had nasal bleeding since admission. She denies chest pain, nausea, vomiting, fever, chills , abdominal pain, any other symptoms or concerns. - Patient Data Vitals - Most Recent: Last Vital Signs Temp 36.9 C 07/03/17 08:05 Pulse 91 07/03/17 08:05 Resp 20 07/03/17 08:05 BP 110/53 L 07/03/17 08:05 Pulse Ox 100 07/03/17 08:05 Weight - Most Recent: 75.931 kg I&O - Last 24 Hours: Intake & Output 07/02/17 07/03/17 07/03/17 22:59 06:59 14:59 Intake Total 500 500 Output Total 200 300 Balance 300 200 Lab Results Last 24 Hours: Laboratory Results - last 24 hr 07/02/17 07/02/17 07/02/17 Range/Units 11:59 16:56 20:55 WBC (5.0-10.0) 10^3/uL RBC (4.2-5.4) 10^6/uL Hgb (12.0-16.0) g/dL Hct (37.0-47.0) % MCV (80-100) fL MCH (27.0-34.0) pg MCHC (33.0-35.0) g/dL Plt Count (150-450) 10^3/uL Neut % (Auto) (42.2-75.2) % Lymph % (Auto) (20.5-50.1) % [place] % (Auto) (2-8) % Eos % (Auto) (1.0-3.0) % Baso % (Auto) (0.0-1.0) % PT (9.0-12.0) SEC INR (0.9-1.2) Sodium (135-145) mmol/L Potassium (3.6-5.0) mmol/L Chloride (101-111) mmol/L Carbon Dioxide (21.0-31.0) mmol/L Anion Gap BUN (7-18) mg/dL Creatinine (0.6-1.3) mg/dL Est Cr Clr Drug Dosing mL/min Estimated GFR (MDRD) Glucose (74-105) mg/dL POC Glucose 344 H 291 H 319 H (83-110) mg/dl Calcium (8.4-10.2) mg/dl 07/03/17 07/03/17 07/03/17 Range/Units 06:30 06:30 06:30 WBC 12.8 H (5.0-10.0) 10^3/uL RBC 3.07 L (4.2-5.4) 10^6/uL Hgb 8.8 L (12.0-16.0) g/dL Hct 28.0 L (37.0-47.0) % MCV 91.2 (80-100) fL MCH 28.7 (27.0-34.0) pg MCHC 31.4 L (33.0-35.0) g/dL Plt Count 129 L (150-450) 10^3/uL Neut % (Auto) 94.0 H (42.2-75.2) % Lymph % (Auto) 3.4 L (20.5-50.1) % [place] % (Auto) 2.5 (2-8) % Eos % (Auto) 0.0 L (1.0-3.0) % Baso % (Auto) 0.1 (0.0-1.0) % PT 17.8 H (9.0-12.0) SEC INR 1.8 H (0.9-1.2) Sodium 135 (135-145) mmol/L Potassium 4.4 (3.6-5.0) mmol/L Chloride 98 L (101-111) mmol/L Carbon Dioxide 24.0 (21.0-31.0) mmol/L Anion Gap 17.4 BUN 50 H (7-18) mg/dL Creatinine 2.0 H (0.6-1.3) mg/dL Est Cr Clr Drug Dosing 22.05 mL/min Estimated GFR (MDRD) 24 Glucose 300 H (74-105) mg/dL POC Glucose (83-110) mg/dl Calcium 9.2 (8.4-10.2) mg/dl 07/03/17 Range/Units 07:57 WBC (5.0-10.0) 10^3/uL RBC (4.2-5.4) 10^6/uL Hgb (12.0-16.0) g/dL Hct (37.0-47.0) % MCV (80-100) fL MCH (27.0-34.0) pg MCHC (33.0-35.0) g/dL Plt Count (150-450) 10^3/uL Neut % (Auto) (42.2-75.2) % Lymph % (Auto) (20.5-50.1) % [place] % (Auto) (2-8) % Eos % (Auto) (1.0-3.0) % Baso % (Auto) (0.0-1.0) % PT (9.0-12.0) SEC INR (0.9-1.2) Sodium (135-145) mmol/L Potassium (3.6-5.0) mmol/L Chloride (101-111) mmol/L Carbon Dioxide (21.0-31.0) mmol/L Anion Gap BUN (7-18) mg/dL Creatinine (0.6-1.3) mg/dL Est Cr Clr Drug Dosing mL/min Estimated GFR (MDRD) Glucose (74-105) mg/dL POC Glucose 297 H (83-110) mg/dl Calcium (8.4-10.2) mg/dl Med Orders - Current: Current Medications Acetaminophen (Tylenol) 650 mg PO Q4H PRN PRN Reason: Pain (Mild 1-3)/fever Albuterol (Proventil Neb Soln) 2.5 mg NEB Q2H PRN PRN Reason: shortness of breath/wheezing Albuterol/Ipratropium (Duoneb 3.0-0.5 Mg/3 Ml) 3 ml NEB Q4HRRT [facility] Last Admin: 07/03/17 07:07 Dose: 3 ml Aspirin (Aspirin) 81 mg PO DAILY [facility] [place] Last Admin: 07/03/17 08:27 Dose: 81 mg Budesonide (Pulmicort) 0.5 mg NEB BIDRT [facility] [place] Last Admin: 07/03/17 07:07 Dose: 0.5 mg Ferrous Sulfate (Ferrous Sulfate) 325 mg PO DAILY [facility] [place] Last Admin: 07/03/17 08:27 Dose: 325 mg Furosemide (Lasix) 80 mg PO WITHBREAKFAST [facility] [place] Last Admin: 07/03/17 08:26 Dose: 80 mg Furosemide (Lasix) 60 mg PO WITHLUNCH [facility] [place] Last Admin: 07/02/17 11:20 Dose: 60 mg Glipizide (Glucotrol Xl) 5 mg PO BIDMEALS [facility] [place] Last Admin: 07/03/17 08:27 Dose: 5 mg Ceftriaxone Sodium 1 gm/ (Sodium Chloride) 50 mls @ 100 mls/hr IV Q24H [facility] [place] Last Admin: 07/02/17 11:21 Dose: 100 mls/hr Insulin Aspart (Novolog) 0 unit SUBCUT QIDACANDBED [facility] [place] PRN Reason: Protocol Last Admin: 07/03/17 08:33 Dose: 6 units Magnesium Hydroxide (Milk Of Magnesia) 30 ml PO Q12H PRN PRN Reason: Constipation Metoprolol Succinate (Toprol Xl) 75 mg PO BEDTIME [facility] [place] Last Admin: 07/02/17 21:24 Dose: 75 mg Montelukast Sodium (Singulair) 10 mg PO BEDTIME [facility] [place] Last Admin: 07/02/17 21:19 Dose: 10 mg Morphine Sulfate (Morphine) 2 mg IVPUSH Q2H PRN PRN Reason: Pain (severe 7-10) Multivitamins (Thera) 1 each PO DAILY [facility] [place] Last Admin: 07/03/17 08:26 Dose: 1 each Linagliptin [ Tradjenta] 5 Mg Own Med 5 mg PO DAILY [facility] [place] Last Admin: 07/03/17 08:28 Dose: 5 mg Colestipol 1 Gram (Tab Own Med) 5 tab PO 1000,2200 [facility] [place] Last Admin: 07/02/17 21:20 Dose: 5 tab Omeprazole (Omeprazole) 20 mg PO ACBRK [facility] [place] Last Admin: 07/03/17 05:49 Dose: 20 mg Ondansetron HCl (Zofran) 4 mg IVPUSH Q6H PRN PRN Reason: Nausea/Vomiting Polyethylene Glycol (Miralax) 17 gm PO DAILY PRN PRN Reason: Constipation Potassium Chloride (Klor-Con 10) 30 meq PO DAILY [facility] [place] Last Admin: 07/03/17 08:26 Dose: 30 meq Prednisone (Prednisone) 40 mg PO WITHBREAKFAST [facility] [place] Last Admin: 07/03/17 08:26 Dose: 40 mg Sodium Chloride (Saline Flush) 10 ml FLUSH ASDIRECTED PRN PRN Reason: Keep Vein Open Last Admin: 07/03/17 08:29 Dose: 10 ml Triamcinolone Acetonide (Triamcinolone Acetonide 0.1% Crm) 0 gm TOP BID PRN PRN Reason: Itching Warfarin Sodium (Pharmacy To Dose - Warfarin) 1 dose .XX ASDIRECTED [facility] [place] Warfarin Sodium (Coumadin) 2.5 mg PO ONETIME ONE Stop: 07/03/17 14:01 Zolpidem Tartrate (Ambien) 5 mg PO BEDTIME PRN PRN Reason: Sleep Last Admin: 07/02/17 22:22 Dose: 5 mg Discontinued Medications Albuterol (Proventil Hfa) gm INH QID PRN PRN Reason: breathing Albuterol/Ipratropium (Duoneb 3.0-0.5 Mg/3 Ml) 3 ml NEB ONETIME ONE Stop: 07/01/17 09:20 Last Admin: 07/01/17 09:33 Dose: 3 ml Aspirin (Aspirin) 81 mg PO ASDIRECTED [facility] [place] Methylprednisolone Sodium Succinate (Solu-Medrol) 125 mg IVPUSH ONETIME ONE Stop: 07/01/17 09:19 Last Admin: 07/01/17 09:22 Dose: 125 mg Methylprednisolone Sodium Succinate (Solu-Medrol) 125 mg IVPUSH Q12HR [facility] [place] Last Admin: 07/03/17 08:29 Dose: 125 mg Colestipol 1 Gram (Tab Own Med) 5 tab PO BID [facility] [place] Last Admin: 07/02/17 08:22 Dose: Not Given Warfarin Sodium (Coumadin) 2.5 mg PO DAILY [facility] [place] Last Admin: 07/01/17 11:27 Dose: Not Given Warfarin Sodium (Coumadin) 2.5 mg PO DAILY [facility] [place] Warfarin Sodium (Coumadin) 2.5 mg PO ONETIME ONE Stop: 07/02/17 14:01 Last Admin: 07/02/17 14:12 Dose: 2.5 mg - Exam General: Alert, Oriented, Cooperative, No Acute Distress. No: Mild Distress, Moderate Distress, Severe Distress, Sedated, Lethargic, Obtunded HEENT: Pupils Equal, Pupils Reactive, EOMI, Mucous Membr. Moist/[place] Neck: Supple, Trachea Midline, No JVD Lungs: Normal Respiratory Effort, Decreased Breath Sounds, Wheezing, Other ( Overall improved on exam). No: Crackles, Rales, Rhonchi, Rub, Stridor Cardiovascular: Regular Rate, Regular Rhythm GI/Abdominal Exam: Normal Bowel Sounds, Soft, Non-Tender, No Organomegaly, No Distention, No Abnormal Bruit, No Mass (Female) Exam: Deferred Back Exam: Normal Inspection, Full Range of Motion. No: CVA Tenderness (L), CVA Tenderness (R) Extremities: Normal Inspection, Normal Range of Motion, Non-Tender, No Pedal Edema, Normal Capillary Refill Skin: Intact, Cool. No: Rash, Ecchymosis Neurological: No New Focal Deficit Psy/Mental Status: Alert, Normal Affect, Normal Mood - Problem List & Annotations (1) COPD with acute exacerbation SNOMED Code(s): 943882358 Code(s): J44.1 - CHRONIC OBSTRUCTIVE PULMONARY DISEASE W (ACUTE) EXACERBATION Status: Acute Current Visit: Yes (2) Chronic atrial fibrillation SNOMED Code(s): 323325601 Code(s): I48.2 - CHRONIC ATRIAL FIBRILLATION Status: Chronic Current Visit: No (3) Congestive heart failure SNOMED Code(s): 16871692 Code(s): I50.9 - HEART FAILURE, UNSPECIFIED Status: Chronic Current Visit : No Qualifiers: Congestive heart failure type: unspecified congestive heart failure type Congestive heart failure chronicity: acute Qualified Code(s): I50.9 - Heart failure, unspecified (4) Hypoxia SNOMED Code(s): 834989761 Code(s): R09.02 - HYPOXEMIA Status: Acute Current Visit: No (5) Anemia SNOMED Code(s): 625842534 Code(s): D64.9 - ANEMIA, UNSPECIFIED Status: Chronic Current Visit: No (6) Cerebrovascular disease SNOMED Code(s): 31398298 Code(s): I67.9 - CEREBROVASCULAR DISEASE, UNSPECIFIED Status: Chronic Current Visit: No (7) Diabetes mellitus type 2, uncomplicated SNOMED Code(s): 417357422 Code(s): E11.9 - TYPE 2 DIABETES MELLITUS WITHOUT COMPLICATIONS Status: Chronic Current Visit: No (8) Hypertension SNOMED Code(s): 57385040 Code(s): I10 - ESSENTIAL (PRIMARY) HYPERTENSION Status: Chronic Current Visit: No (9) Pulmonary hypertension, moderate to severe SNOMED Code(s): 55608516 Code(s): I27.2 - OTHER SECONDARY PULMONARY HYPERTENSION * DO NOT USE * Status: Chronic Current Visit: No Onset Date: 03/26/15 - Problem List Review Problem List Initiated/Reviewed/Updated: Yes - My Orders Last 24 Hours: My Active Orders 07/02/17 08:13 OT Evaluation and Treatment [CONS] Routine PT Evaluation and Treatment [CONS] Routine 07/02/17 10:00 Colestipol 5 tab PO 1000,2200 07/03/17 08:00 predniSONE 40 mg PO WITHBREAKFAST 07/03/17 14:00 Warfarin [Coumadin] 2.5 mg PO ONETIME ONE 07/04/17 05:11 BASIC METABOLIC PANEL,BMP [CHEM] AM CBC WITH AUTO DIFF [HEME] AM 07/04/17 11:49 INR,PT,PROTHROMBIN TIME [COAG] DAILY 07/05/17 11:49 INR,PT,PROTHROMBIN TIME [COAG] DAILY 07/06/17 11:49 INR,PT,PROTHROMBIN TIME [COAG] DAILY 07/07/17 11:49 INR,PT,PROTHROMBIN TIME [COAG] DAILY - Plan Plan:: Impression 77-year-old female with history of COPD presented with the COPD exacerbation and nasal bleeding. Patient initially was admitted for observation but she qualifies for acute inpatient admission. I'm expecting her to need more physical therapy and longer acute management for her COPD than I expected on admission COPD exacerbation -Change DuoNeb from every 4 hours scheduled to every 6 hours Continue albuterol every 2 hours as needed Continue Pulmicort -Change Solu-Medrol IV to prednisone -Continue Rocephin Nasal bleeding Patient did not want to take vitamin K Warfarin was held only on the day of admission. -No further bleeding -Continue warfarin, dosing per pharmacy Ice packs as needed Generalized weakness Multifactorial Consulted physical and occupational therapy to evaluate and treat Anemia She has chronic anemia and hemoglobin is slightly below baseline -Hemoglobin is stable. We'll continue to watch her hemoglobin. Continue ferrous sulfate Diabetes mellitus type 2 Blood glucose is elevated after being started on Solu Medrol Continue her home medications -Continue sliding scale insulin, medium regimen Chronic atrial fibrillation Continue metoprolol and warfarin Chronic Congestive heart failure Continue Lasix and metoprolol succinate Hypertension Continue metoprolol succinate DVT prophylaxis: She is on Coumadin, so no further DVT prophylaxis is needed She wants to be DNR for CODE STATUS
[2017-07-03] MEDS: COLESTIPOL 1 GM PO SCH ×2 (09:58→22:09)
[2017-07-03] MEDS: cefTRIAXone 1 GM in Sodium Chloride 0.9% 50 ML IV SCH (10:52)
[2017-07-03] MEDS: Furosemide 20 MG Tab PO SCH (12:20)
[2017-07-03] MEDS ORDERED: Warfarin 2.5 MG Tab PO ONE (14:00)
[2017-07-03] MEDS: Montelukast 10 MG Tab PO SCH (21:23)
[2017-07-03] MEDS: Metoprolol Succinate 50 MG Tab.ER PO SCH (22:05)
[2017-07-03] MEDS: Zolpidem 5 MG Tab PO PRN (22:08)
[2017-07-04] MEDS: Albuterol/Ipratropium 3.0-0.5 MG/3 ML Neb Soln NEB SCH ×4 (01:11→18:11)
[2017-07-04] MEDS: Omeprazole 20 MG Cap.CR PO SCH (05:23)
[2017-07-04] MEDS: Budesonide 0.5 MG/2 ML Neb Susp NEB SCH ×2 (07:32→18:11)
[2017-07-04] MEDS: glipiZIDE 5 MG Tab.ER PO SCH ×2 (08:41→17:31)
[2017-07-04] MEDS: Potassium Chloride 10 MEQ Tab.ER PO SCH (08:41)
[2017-07-04] MEDS: Furosemide 80 MG Tab PO SCH (08:42)
[2017-07-04] MEDS: predniSONE 20 MG Tab PO SCH (08:42)
[2017-07-04] MEDS: Multivitamins,Therapeutic Tab PO SCH (08:42)
[2017-07-04] MEDS: Ferrous Sulfate 325 MG Tab PO SCH (08:42)
[2017-07-04] MEDS: Insulin Aspart 100 Units/ML 3 ML Pen SUBCUT SCH ×4 (08:43→21:25)
[2017-07-04] MEDS: Aspirin 81 MG Tab.Chew PO SCH (08:43)
[2017-07-04] MEDS: LINAGLIPTIN 5 MG PO SCH (08:44)
[2017-07-04] MEDS ORDERED: Sodium Chloride 0.9% 1,000 ML IV SCH (10:00)
--- NOTE | 2017-07-04 10:05 | PCM.PN ---
- General Info Date of Service: 07/04/17 Admission Dx/Problem (Free Text): Admission Diagnosis/Problem Admission Diagnosis/Problem COPD, Severe chronic obstructive pulmonary disease Subjective Update: Patient stated that she is feeling better. She almost feels back to normal not not exactly. Still having occasional cough and SOB with activities. She has not had nasal bleeding since admission. She denies chest pain, nausea, vomiting, fever, chills, abdominal pain, any other symptoms or concerns. - Patient Data Vitals - Most Recent: Last Vital Signs Temp 36.6 C 07/04/17 07:46 Pulse 88 07/04/17 07:46 Resp 20 07/04/17 07:46 BP 111/57 L 07/04/17 07:46 Pulse Ox 98 07/04/17 07:46 Weight - Most Recent: 77.111 kg I&O - Last 24 Hours: Intake & Output 07/03/17 07/04/17 07/04/17 22:59 06:59 14:59 Intake Total 200 700 Output Total 700 600 Balance -500 100 Lab Results Last 24 Hours: Laboratory Results - last 24 hr 07/03/17 07/03/17 07/03/17 Range/Units 11:19 16:45 20:46 WBC (5.0-10.0) 10^3/uL RBC (4.2-5.4) 10^6/uL Hgb (12.0-16.0) g/dL Hct (37.0-47.0) % MCV (80-100) fL MCH (27.0-34.0) pg MCHC (33.0-35.0) g/dL Plt Count (150-450) 10^3/uL Neut % (Auto) (42.2-75.2) % Lymph % (Auto) (20.5-50.1) % [place] % (Auto) (2-8) % Eos % (Auto) (1.0-3.0) % Baso % (Auto) (0.0-1.0) % PT (9.0-12.0) SEC INR (0.9-1.2) Sodium (135-145) mmol/L Potassium (3.6-5.0) mmol/L Chloride (101-111) mmol/L Carbon Dioxide (21.0-31.0) mmol/L Anion Gap BUN (7-18) mg/dL Creatinine (0.6-1.3) mg/dL Est Cr Clr Drug Dosing mL/min Estimated GFR (MDRD) Glucose (74-105) mg/dL POC Glucose 375 H 228 H 247 H (83-110) mg/dl Calcium (8.4-10.2) mg/dl 07/04/17 07/04/17 07/04/17 Range/Units 06:15 06:15 06:25 WBC 9.9 (5.0-10.0) 10^3/uL RBC 3.08 L (4.2-5.4) 10^6/uL Hgb 8.8 L (12.0-16.0) g/dL Hct 28.3 L (37.0-47.0) % MCV 91.9 (80-100) fL MCH 28.6 (27.0-34.0) pg MCHC 31.1 L (33.0-35.0) g/dL Plt Count 118 L (150-450) 10^3/uL Neut % (Auto) 86.8 H (42.2-75.2) % Lymph % (Auto) 6.0 L (20.5-50.1) % [place] % (Auto) 7.2 (2-8) % Eos % (Auto) 0.0 L (1.0-3.0) % Baso % (Auto) 0.0 (0.0-1.0) % PT 21.4 H (9.0-12.0) SEC INR 2.1 H (0.9-1.2) Sodium 136 (135-145) mmol/L Potassium 4.5 (3.6-5.0) mmol/L Chloride 99 L (101-111) mmol/L Carbon Dioxide 25.0 (21.0-31.0) mmol/L Anion Gap 16.5 BUN 58 H (7-18) mg/dL Creatinine 2.0 H (0.6-1.3) mg/dL Est Cr Clr Drug Dosing 22.05 mL/min Estimated GFR (MDRD) 24 Glucose 237 H (74-105) mg/dL POC Glucose (83-110) mg/dl Calcium 9.1 (8.4-10.2) mg/dl 07/04/17 Range/Units 07:50 WBC (5.0-10.0) 10^3/uL RBC (4.2-5.4) 10^6/uL Hgb (12.0-16.0) g/dL Hct (37.0-47.0) % MCV (80-100) fL MCH (27.0-34.0) pg MCHC (33.0-35.0) g/dL Plt Count (150-450) 10^3/uL Neut % (Auto) (42.2-75.2) % Lymph % (Auto) (20.5-50.1) % [place] % (Auto) (2-8) % Eos % (Auto) (1.0-3.0) % Baso % (Auto) (0.0-1.0) % PT (9.0-12.0) SEC INR (0.9-1.2) Sodium (135-145) mmol/L Potassium (3.6-5.0) mmol/L Chloride (101-111) mmol/L Carbon Dioxide (21.0-31.0) mmol/L Anion Gap BUN (7-18) mg/dL Creatinine (0.6-1.3) mg/dL Est Cr Clr Drug Dosing mL/min Estimated GFR (MDRD) Glucose (74-105) mg/dL POC Glucose 235 H (83-110) mg/dl Calcium (8.4-10.2) mg/dl Med Orders - Current: Current Medications Acetaminophen (Tylenol) 650 mg PO Q4H PRN PRN Reason: Pain (Mild 1-3)/fever Albuterol (Proventil Neb Soln) 2.5 mg NEB Q2H PRN PRN Reason: shortness of breath/wheezing Albuterol/Ipratropium (Duoneb 3.0-0.5 Mg/3 Ml) 3 ml NEB Q6HRRT [facility] Last Admin: 07/04/17 07:32 Dose: 3 ml Aspirin (Aspirin) 81 mg PO DAILY [facility] Last Admin: 07/04/17 08:43 Dose: 81 mg Budesonide (Pulmicort) 0.5 mg NEB BIDRT [facility] Last Admin: 07/04/17 07:32 Dose: 0.5 mg Ferrous Sulfate (Ferrous Sulfate) 325 mg PO DAILY [facility] Last Admin: 07/04/17 08:42 Dose: 325 mg Furosemide (Lasix) 80 mg PO WITHBREAKFAST [facility] Last Admin: 07/04/17 08:42 Dose: 80 mg Furosemide (Lasix) 60 mg PO WITHLUNCH [facility] Last Admin: 07/03/17 12:20 Dose: 60 mg Glipizide (Glucotrol Xl) 5 mg PO BIDMEALS [facility] Last Admin: 07/04/17 08:41 Dose: 5 mg Ceftriaxone Sodium 1 gm/ (Sodium Chloride) 50 mls @ 100 mls/hr IV Q24H [facility] Last Admin: 07/03/17 10:52 Dose: 100 mls/hr Insulin Aspart (Novolog) 0 unit SUBCUT QIDACANDBED [facility] PRN Reason: Protocol Last Admin: 07/04/17 08:43 Dose: 4 units Magnesium Hydroxide (Milk Of Magnesia) 30 ml PO Q12H PRN PRN Reason: Constipation Metoprolol Succinate (Toprol Xl) 75 mg PO BEDTIME [facility] Last Admin: 07/03/17 22:05 Dose: 75 mg Montelukast Sodium (Singulair) 10 mg PO BEDTIME [facility] Last Admin: 07/03/17 21:23 Dose: 10 mg Morphine Sulfate (Morphine) 2 mg IVPUSH Q2H PRN PRN Reason: Pain (severe 7-10) Multivitamins (Thera) 1 each PO DAILY [facility] Last Admin: 07/04/17 08:42 Dose: 1 each Linagliptin [ Tradjenta] 5 Mg Own Med 5 mg PO DAILY [facility] Last Admin: 07/04/17 08:44 Dose: 5 mg Colestipol 1 Gram (Tab Own Med) 5 tab PO 1000,2200 [facility] Last Admin: 07/03/17 22:09 Dose: 5 tab Omeprazole (Omeprazole) 20 mg PO ACBRK [facility] Last Admin: 07/04/17 05:23 Dose: 20 mg Ondansetron HCl (Zofran) 4 mg IVPUSH Q6H PRN PRN Reason: Nausea/Vomiting Polyethylene Glycol (Miralax) 17 gm PO DAILY PRN PRN Reason: Constipation Potassium Chloride (Klor-Con 10) 30 meq PO DAILY [facility] Last Admin: 07/04/17 08:41 Dose: 30 meq Prednisone (Prednisone) 40 mg PO WITHBREAKFAST [facility] Last Admin: 07/04/17 08:42 Dose: 40 mg Sodium Chloride (Saline Flush) 10 ml FLUSH ASDIRECTED PRN PRN Reason: Keep Vein Open Last Admin: 07/03/17 10:53 Dose: 10 ml Triamcinolone Acetonide (Triamcinolone Acetonide 0.1% Crm) 0 gm TOP BID PRN PRN Reason: Itching Warfarin Sodium (Pharmacy To Dose - Warfarin) 1 dose .XX ASDIRECTED [facility] Warfarin Sodium (Coumadin) 2.5 mg PO ONETIME ONE Stop: 07/04/17 14:01 Zolpidem Tartrate (Ambien) 5 mg PO BEDTIME PRN PRN Reason: Sleep Last Admin: 07/03/17 22:08 Dose: 5 mg Discontinued Medications Albuterol (Proventil Hfa) gm INH QID PRN PRN Reason: breathing Albuterol/Ipratropium (Duoneb 3.0-0.5 Mg/3 Ml) 3 ml NEB ONETIME ONE Stop: 07/01/17 09:20 Last Admin: 07/01/17 09:33 Dose: 3 ml Albuterol/Ipratropium (Duoneb 3.0-0.5 Mg/3 Ml) 3 ml NEB Q4HRRT [facility] Last Admin: 07/03/17 07:07 Dose: 3 ml Aspirin (Aspirin) 81 mg PO ASDIRECTED [facility] Methylprednisolone Sodium Succinate (Solu-Medrol) 125 mg IVPUSH ONETIME ONE Stop: 07/01/17 09:19 Last Admin: 07/01/17 09:22 Dose: 125 mg Methylprednisolone Sodium Succinate (Solu-Medrol) 125 mg IVPUSH Q12HR [facility] Last Admin: 07/03/17 08:29 Dose: 125 mg Colestipol 1 Gram (Tab Own Med) 5 tab PO BID [facility] Last Admin: 07/02/17 08:22 Dose: Not Given Warfarin Sodium (Coumadin) 2.5 mg PO DAILY [facility] Last Admin: 07/01/17 11:27 Dose: Not Given Warfarin Sodium (Coumadin) 2.5 mg PO DAILY [facility] Warfarin Sodium (Coumadin) 2.5 mg PO ONETIME ONE Stop: 07/02/17 14:01 Last Admin: 07/02/17 14:12 Dose: 2.5 mg Warfarin Sodium (Coumadin) 2.5 mg PO ONETIME ONE Stop: 07/03/17 14:01 Last Admin: 07/03/17 14:09 Dose: 2.5 mg - Exam General: Alert, Oriented, Cooperative, No Acute Distress. No: Moderate Distress , Severe Distress, Sedated, Lethargic, Obtunded HEENT: Pupils Equal, Pupils Reactive, EOMI, Mucous Membr. Moist/[place] Neck: Supple, Trachea Midline, No JVD Lungs: Decreased Breath Sounds, Wheezing (no change from yesterday on chest exam ). No: Crackles, Rales, Rhonchi, Stridor Cardiovascular: Irregular Rhythm. No: Gallops, Rubs GI/Abdominal Exam: Normal Bowel Sounds, Soft, Non-Tender, No Organomegaly, No Distention, No Abnormal Bruit, No Mass Back Exam: Normal Inspection, Full Range of Motion Extremities: Normal Inspection, Normal Range of Motion, Non-Tender, No Pedal Edema, Normal Capillary Refill Skin: Intact. No: Rash, Ecchymosis Neurological: No New Focal Deficit Psy/Mental Status: Alert, Normal Affect, Normal Mood - Problem List & Annotations (1) COPD with acute exacerbation SNOMED Code(s): 379226752 Code(s): J44.1 - CHRONIC OBSTRUCTIVE PULMONARY DISEASE W (ACUTE) EXACERBATION Status: Acute Current Visit: Yes (2) Chronic atrial fibrillation SNOMED Code(s): 420245745 Code(s): I48.2 - CHRONIC ATRIAL FIBRILLATION Status: Chronic Current Visit: No (3) Congestive heart failure SNOMED Code(s): 65092292 Code(s): I50.9 - HEART FAILURE, UNSPECIFIED Status: Chronic Current Visit : No Qualifiers: Congestive heart failure type: unspecified congestive heart failure type Congestive heart failure chronicity: acute Qualified Code(s): I50.9 - Heart failure, unspecified (4) Hypoxia SNOMED Code(s): 646474126 Code(s): R09.02 - HYPOXEMIA Status: Acute Current Visit: No (5) Anemia SNOMED Code(s): 410124846 Code(s): D64.9 - ANEMIA, UNSPECIFIED Status: Chronic Current Visit: No (6) Cerebrovascular disease SNOMED Code(s): 85529377 Code(s): I67.9 - CEREBROVASCULAR DISEASE, UNSPECIFIED Status: Chronic Current Visit: No (7) Diabetes mellitus type 2, uncomplicated SNOMED Code(s): 459507919 Code(s): E11.9 - TYPE 2 DIABETES MELLITUS WITHOUT COMPLICATIONS Status: Chronic Current Visit: No (8) Hypertension SNOMED Code(s): 81022530 Code(s): I10 - ESSENTIAL (PRIMARY) HYPERTENSION Status: Chronic Current Visit: No (9) Pulmonary hypertension, moderate to severe SNOMED Code(s): 72927126 Code(s): I27.2 - OTHER SECONDARY PULMONARY HYPERTENSION * DO NOT USE * Status: Chronic Current Visit: No Onset Date: 03/26/15 - Problem List Review Problem List Initiated/Reviewed/Updated: Yes - My Orders Last 24 Hours: My Active Orders 07/04/17 14:00 Warfarin [Coumadin] 2.5 mg PO ONETIME ONE 07/05/17 11:49 INR,PT,PROTHROMBIN TIME [COAG] DAILY 07/06/17 11:49 INR,PT,PROTHROMBIN TIME [COAG] DAILY 07/07/17 11:49 INR,PT,PROTHROMBIN TIME [COAG] DAILY - Plan Plan:: Impression 77-year-old female with history of COPD presented with the COPD exacerbation and nasal bleeding. Patient initially was admitted for observation but she qualifies for acute inpatient admission. I'm expecting her to need more physical therapy and longer acute management for her COPD than I expected on admission COPD exacerbation -Keep DuoNeb every 6 hours Continue albuterol every 2 hours as needed Continue Pulmicort -continue prednisone -Continue Rocephin Acute on chronic kidney disease -Do trial of 1 liter of normal saline and encourage oral fluids and recheck cr tomorrow Nasal bleeding Patient did not want to take vitamin K Warfarin was held only on the day of admission. -No further bleeding -Continue warfarin, dosing per pharmacy Ice packs as needed Generalized weakness Multifactorial Consulted physical and occupational therapy to evaluate and treat Anemia She has chronic anemia and hemoglobin is slightly below baseline -Hemoglobin is stable. We'll continue to watch her hemoglobin. Continue ferrous sulfate Diabetes mellitus type 2 -Blood sugar is not well-controlled Blood glucose is elevated after being started on Solu Medrol and now on prednisone Continue her home medications -Change sliding scale insulin regimen from medium to high Chronic atrial fibrillation Continue metoprolol and warfarin Chronic Congestive heart failure Continue Lasix and metoprolol succinate Hypertension Continue metoprolol succinate DVT prophylaxis: She is on Coumadin, so no further DVT prophylaxis is needed She wants to be DNR for CODE STATUS
[2017-07-04] MEDS: COLESTIPOL 1 GM PO SCH ×2 (10:15→21:18)
[2017-07-04] MEDS: cefTRIAXone 1 GM in Sodium Chloride 0.9% 50 ML IV SCH (10:16)
[2017-07-04] MEDS: Furosemide 20 MG Tab PO SCH (12:17)
[2017-07-04] MEDS ORDERED: Warfarin 2.5 MG Tab PO ONE (14:00)
[2017-07-04] MEDS: Metoprolol Succinate 50 MG Tab.ER PO SCH (21:13)
[2017-07-04] MEDS: Montelukast 10 MG Tab PO SCH (21:13)
[2017-07-04] MEDS: Zolpidem 5 MG Tab PO PRN (21:18)
[2017-07-05] MEDS: Albuterol/Ipratropium 3.0-0.5 MG/3 ML Neb Soln NEB SCH ×2 (00:45→07:08)
[2017-07-05] MEDS: Omeprazole 20 MG Cap.CR PO SCH (05:22)
[2017-07-05] MEDS: Budesonide 0.5 MG/2 ML Neb Susp NEB SCH (07:08)
[2017-07-05 08:01] VITALS: BP 128/83
--- NOTE | 2017-07-05 08:07 | PCM.DCSUM1 ---
Discharge Summary - Hospital Course Free Text/Narrative:: 77-year-old female with past medical history of chronic atrial fibrillation, COPD, congestive heart failure, cerebrovascular disease, hypertension, diabetes mellitus type 2 presented to the emergency room for having shortness of breath for the last 2 days prior to admission and was getting worse. She admitted wheezing but no cough, fever, or chills. Patient also admitted having nasal bleeding started the night before admission last about 1 hour. Bleeding stopped spontaneously and returned later next morning and lasted about 1 hour as well and stopped spontaneously before she came to the emergency room. Patient had worse nasal bleeding 1 months ago for which she went to [facility] and she was given vitamin K. Patient denies nausea, vomiting, chest pain, headache, upper respiratory symptoms, abdominal pain, diarrhea, urinary symptoms, lower extremities edema, new unilateral weakness, any other symptoms or concerns. According to ER provider patient's sats were in the low 80s on arrival and responded well to see and have liter of his oxygen and DuoNeb. on admission Creatinine 1.7, at baseline. BNP 340, similar to what it was a few months ago. Hemoglobin 9.2, slightly lower than baseline. Chest x-ray did not show any acute findings but reported chronic similar findings. Patient was started on DuoNeb every 4 hours, Solu-Medrol 125 mg every 12 hours, ceftriaxone 1 g every 24 hours. Later doing up was changed to every 6 hours and Solu-Medrol changed to prednisone. Patient blood sugar was elevated and she was on sliding scale insulin regimen. Patient has been feeling good for the last 2 days and today she feels she is back to her normal and she wants to be discharged. She feels safe at home and believes she can take care of herself. 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 She was advised to see her primary care provider this week in 3-5 days and discuss with him referral to ENT for her nasal bleeding. Throughout admission patient did not have nasal bleeding, fever, chills, chest pain, abdominal pain, nausea, vomiting, urinary symptoms, unilateral weakness/numbness/tingling, any other symptoms or concerns. Patient does not have a cough for the last 2 days. Her shortness of breath is only with exertion which is back to her baseline. Patient 's hemoglobin is stable at 8.9. - Discharge Data Discharge Date: 07/05/17 Discharge Disposition: Home, Self-Care 01 Condition: Good - Discharge Diagnosis/Problem(s) (1) COPD with acute exacerbation SNOMED Code(s): 029748407 ICD Code: J44.1 - CHRONIC OBSTRUCTIVE PULMONARY DISEASE W (ACUTE) EXACERBATION Status: Acute Current Visit: Yes (2) Chronic atrial fibrillation SNOMED Code(s): 426002294 ICD Code: I48.2 - CHRONIC ATRIAL FIBRILLATION Status: Chronic Current Visit: No (3) Congestive heart failure SNOMED Code(s): 23754926 ICD Code: I50.9 - HEART FAILURE, UNSPECIFIED Status: Chronic Current Visit: No Qualifiers: Congestive heart failure type: unspecified congestive heart failure type Congestive heart failure chronicity: acute Qualified Code(s): I50.9 - Heart failure, unspecified (4) Hypoxia SNOMED Code(s): 122832536 ICD Code: R09.02 - HYPOXEMIA Status: Acute Current Visit: No (5) Anemia SNOMED Code(s): 472094645 ICD Code: D64.9 - ANEMIA, UNSPECIFIED Status: Chronic Current Visit: No (6) Cerebrovascular disease SNOMED Code(s): 67895750 ICD Code: I67.9 - CEREBROVASCULAR DISEASE, UNSPECIFIED Status: Chronic Current Visit: No (7) Diabetes mellitus type 2, uncomplicated SNOMED Code(s): 432705329 ICD Code: E11.9 - TYPE 2 DIABETES MELLITUS WITHOUT COMPLICATIONS Status: Chronic Current Visit: No (8) Hypertension SNOMED Code(s): 56411554 ICD Code: I10 - ESSENTIAL (PRIMARY) HYPERTENSION Status: Chronic Current Visit: No (9) Pulmonary hypertension, moderate to severe SNOMED Code(s): 08202497 ICD Code: I27.2 - OTHER SECONDARY PULMONARY HYPERTENSION * DO NOT USE * Status: Chronic Current Visit: No Onset Date: 03/26/15 - Patient Summary/Data Consults: Consultations 07/02/17 08:13 OT Evaluation and Treatment [CONS] Routine PT Evaluation and Treatment [CONS] Routine - Patient Instructions Diet: Heart Healthy Diet, Diabetic Diet Activity: As Tolerated Showering/Bathing: May Shower Notify Provider of: Fever, Nausea and/or Vomiting - Discharge Plan Prescriptions/Med Rec: Amoxicillin/Potassium Clav [Augmentin 875-125 Tablet] 1 each PO Q12H 5 Days #10 tablet Home Medications: Home Meds Colestipol [Colestipol HCl] 5 tab PO BID 11/16/13 [History] Furosemide 80 mg PO WITHBREAKFAST 11/16/13 [History] Linagliptin [Tradjenta] 5 mg PO DAILY 11/16/13 [History] Omeprazole 20 mg PO DAILY 11/16/13 [History] Triamcinolone Acetonide [Kenalog 0.1% Crm] 1 applic .XX BID PRN 11/16/13 [ History] glipiZIDE [Glucotrol XL] 5 mg PO BID 02/20/15 [History] Warfarin [Coumadin] 2.5 mg PO DAILY 08/06/15 [History] Albuterol [Proair HFA] 2 puff INH QID PRN 10/07/15 [History] Ferrous Sulfate [Iron] 325 mg PO DAILY 10/07/15 [History] Albuterol/Ipratropium [DuoNeb 3.0-0.5 MG/3 ML] 3 ml NEB Q6HRRT neb 12/25/16 [Rx ] Budesonide [Pulmicort] 0.5 mg NEB BIDRT #60 neb 12/25/16 [Rx] Aspirin 81 mg PO DAILY 04/20/17 [History] Potassium Chloride 10 meq PO BID 04/20/17 [History] Furosemide [Lasix] 80 mg PO QAM 07/01/17 [History] Metoprolol Succinate [Toprol XL] 75 mg PO BEDTIME 07/01/17 [History] Montelukast [Singulair] 10 mg PO BEDTIME 07/01/17 [History] Multivitamin [Multivitamins] 1 cap PO DAILY 07/01/17 [History] Amoxicillin/Potassium Clav [Augmentin 875-125 Tablet] 1 each PO Q12H 5 Days #10 tablet 07/05/17 [Rx] Forms: ED Department Discharge Referrals: Dontrell Hernandez MD [Primary Care Provider] - - General Info Date of Service: 07/05/17 Admission Dx/Problem (Free Text: Admission Diagnosis/Problem Admission Diagnosis/Problem COPD, Severe chronic obstructive pulmonary disease Subjective Update: see summary - Patient Data Vitals - Most Recent: Last Vital Signs Temp 36.8 C 07/05/17 01:00 Pulse 91 07/05/17 07:15 Resp 20 07/05/17 07:15 BP 110/59 L 07/05/17 01:00 Pulse Ox 96 07/05/17 03:06 Weight - Most Recent: 77.292 kg I&O - Last 24 hours: Intake & Output 07/04/17 07/05/17 07/05/17 22:59 06:59 14:59 Intake Total 1520 350 Output Total 520 275 Balance 1000 75 Lab Results - Last 24 hrs: Laboratory Results - last 24 hr 07/04/17 07/04/17 07/04/17 Range/Units 11:01 17:07 21:11 WBC (5.0-10.0) 10^3/uL RBC (4.2-5.4) 10^6/uL Hgb (12.0-16.0) g/dL Hct (37.0-47.0) % MCV (80-100) fL MCH (27.0-34.0) pg MCHC (33.0-35.0) g/dL Plt Count (150-450) 10^3/uL Neut % (Auto) (42.2-75.2) % Lymph % (Auto) (20.5-50.1) % [place] % (Auto) (2-8) % Eos % (Auto) (1.0-3.0) % Baso % (Auto) (0.0-1.0) % PT (9.0-12.0) SEC INR (0.9-1.2) Sodium (135-145) mmol/L Potassium (3.6-5.0) mmol/L Chloride (101-111) mmol/L Carbon Dioxide (21.0-31.0) mmol/L Anion Gap BUN (7-18) mg/dL Creatinine (0.6-1.3) mg/dL Est Cr Clr Drug Dosing mL/min Estimated GFR (MDRD) Glucose (74-105) mg/dL POC Glucose 238 H 288 H 282 H (83-110) mg/dl Calcium (8.4-10.2) mg/dl 07/05/17 07/05/17 07/05/17 Range/Units 06:17 06:17 06:17 WBC 7.4 (5.0-10.0) 10^3/uL RBC 3.14 L (4.2-5.4) 10^6/uL Hgb 8.9 L (12.0-16.0) g/dL Hct 28.8 L (37.0-47.0) % MCV 91.7 (80-100) fL MCH 28.3 (27.0-34.0) pg MCHC 30.9 L (33.0-35.0) g/dL Plt Count 111 L (150-450) 10^3/uL Neut % (Auto) 70.8 (42.2-75.2) % Lymph % (Auto) 16.1 L (20.5-50.1) % [place] % (Auto) 12.0 H (2-8) % Eos % (Auto) 1.1 (1.0-3.0) % Baso % (Auto) 0.0 (0.0-1.0) % PT 24.0 H (9.0-12.0) SEC INR 2.4 H (0.9-1.2) Sodium 139 (135-145) mmol/L Potassium 4.1 (3.6-5.0) mmol/L Chloride 104 (101-111) mmol/L Carbon Dioxide 26.0 (21.0-31.0) mmol/L Anion Gap 13.1 BUN 51 H (7-18) mg/dL Creatinine 1.8 H (0.6-1.3) mg/dL Est Cr Clr Drug Dosing 24.50 mL/min Estimated GFR (MDRD) 27 Glucose 70 L (74-105) mg/dL POC Glucose (83-110) mg/dl Calcium 8.9 (8.4-10.2) mg/dl Med Orders - Current: Current Medications Acetaminophen (Tylenol) 650 mg PO Q4H PRN PRN Reason: Pain (Mild 1-3)/fever Albuterol (Proventil Neb Soln) 2.5 mg NEB Q2H PRN PRN Reason: shortness of breath/wheezing Albuterol/Ipratropium (Duoneb 3.0-0.5 Mg/3 Ml) 3 ml NEB Q6HRRT COUNTS INCLUDE 234 BEDS AT THE [facility] Last Admin: 07/05/17 07:08 Dose: 3 ml Aspirin (Aspirin) 81 mg PO DAILY COUNTS INCLUDE 234 BEDS AT THE [facility] Last Admin: 07/04/17 08:43 Dose: 81 mg Budesonide (Pulmicort) 0.5 mg NEB BIDRT COUNTS INCLUDE 234 BEDS AT THE [facility] Last Admin: 07/05/17 07:08 Dose: 0.5 mg Ferrous Sulfate (Ferrous Sulfate) 325 mg PO DAILY COUNTS INCLUDE 234 BEDS AT THE [facility] Last Admin: 07/04/17 08:42 Dose: 325 mg Furosemide (Lasix) 80 mg PO WITHBREAKFAST COUNTS INCLUDE 234 BEDS AT THE [facility] Last Admin: 07/04/17 08:42 Dose: 80 mg Furosemide (Lasix) 60 mg PO WITHLUNCH COUNTS INCLUDE 234 BEDS AT THE [facility] Last Admin: 07/04/17 12:17 Dose: 60 mg Glipizide (Glucotrol Xl) 5 mg PO BIDMEALS COUNTS INCLUDE 234 BEDS AT THE [facility] Last Admin: 07/04/17 17:31 Dose: 5 mg Ceftriaxone Sodium 1 gm/ (Sodium Chloride) 50 mls @ 100 mls/hr IV Q24H COUNTS INCLUDE 234 BEDS AT THE [facility] Last Admin: 07/04/17 10:16 Dose: 100 mls/hr Insulin Aspart (Novolog) 0 unit SUBCUT QIDACANDBED COUNTS INCLUDE 234 BEDS AT THE [facility] PRN Reason: Protocol Last Admin: 07/04/17 21:25 Dose: 9 units Magnesium Hydroxide (Milk Of Magnesia) 30 ml PO Q12H PRN PRN Reason: Constipation Metoprolol Succinate (Toprol Xl) 75 mg PO BEDTIME COUNTS INCLUDE 234 BEDS AT THE [facility] Last Admin: 07/04/17 21:13 Dose: 75 mg Montelukast Sodium (Singulair) 10 mg PO BEDTIME COUNTS INCLUDE 234 BEDS AT THE [facility] Last Admin: 07/04/17 21:13 Dose: 10 mg Morphine Sulfate (Morphine) 2 mg IVPUSH Q2H PRN PRN Reason: Pain (severe 7-10) Multivitamins (Thera) 1 each PO DAILY COUNTS INCLUDE 234 BEDS AT [facility] Last Admin: 07/04/17 08:42 Dose: 1 each Linagliptin [ Tradjenta] 5 Mg Own Med 5 mg PO DAILY COUNTS INCLUDE 234 BEDS AT [facility] Last Admin: 07/04/17 08:44 Dose: 5 mg Colestipol 1 Gram (Tab Own Med) 5 tab PO 1000,2200 COUNTS INCLUDE 234 BEDS AT [facility] Last Admin: 07/04/17 21:18 Dose: 5 tab Omeprazole (Omeprazole) 20 mg PO ACBRK COUNTS INCLUDE 234 BEDS AT [facility] Last Admin: 07/05/17 05:22 Dose: 20 mg Ondansetron HCl (Zofran) 4 mg IVPUSH Q6H PRN PRN Reason: Nausea/Vomiting Polyethylene Glycol (Miralax) 17 gm PO DAILY PRN PRN Reason: Constipation Potassium Chloride (Klor-Con 10) 30 meq PO DAILY COUNTS INCLUDE 234 BEDS AT [facility] Last Admin: 07/04/17 08:41 Dose: 30 meq Prednisone (Prednisone) 40 mg PO WITHBREAKFAST COUNTS INCLUDE 234 BEDS AT THE [facility] Last Admin: 07/04/17 08:42 Dose: 40 mg Sodium Chloride (Saline Flush) 10 ml FLUSH ASDIRECTED PRN PRN Reason: Keep Vein Open Last Admin: 07/03/17 10:53 Dose: 10 ml Triamcinolone Acetonide (Triamcinolone Acetonide 0.1% Crm) 0 gm TOP BID PRN PRN Reason: Itching Warfarin Sodium (Pharmacy To Dose - Warfarin) 1 dose .XX ASDIRECTED COUNTS INCLUDE 234 BEDS AT THE [facility] Zolpidem Tartrate (Ambien) 5 mg PO BEDTIME PRN PRN Reason: Sleep Last Admin: 07/04/17 21:18 Dose: 5 mg Discontinued Medications Albuterol (Proventil Hfa) gm INH QID PRN PRN Reason: breathing Albuterol/Ipratropium (Duoneb 3.0-0.5 Mg/3 Ml) 3 ml NEB ONETIME ONE Stop: 07/01/17 09:20 Last Admin: 07/01/17 09:33 Dose: 3 ml Albuterol/Ipratropium (Duoneb 3.0-0.5 Mg/3 Ml) 3 ml NEB Q4HRRT COUNTS INCLUDE 234 BEDS AT THE [facility] Last Admin: 07/03/17 07:07 Dose: 3 ml Aspirin (Aspirin) 81 mg PO ASDIRECTED COUNTS INCLUDE 234 BEDS AT THE [facility] Sodium Chloride (Normal Saline) 1,000 mls @ 150 mls/hr IV ASDIRECTED COUNTS INCLUDE 234 BEDS AT THE [facility] Stop: 07/04/17 16:39 Last Infusion: 07/04/17 17:59 Dose: Infused Methylprednisolone Sodium Succinate (Solu-Medrol) 125 mg IVPUSH ONETIME ONE Stop: 07/01/17 09:19 Last Admin: 07/01/17 09:22 Dose: 125 mg Methylprednisolone Sodium Succinate (Solu-Medrol) 125 mg IVPUSH Q12HR COUNTS INCLUDE 234 BEDS AT [facility] Last Admin: 07/03/17 08:29 Dose: 125 mg Colestipol 1 Gram (Tab Own Med) 5 tab PO BID COUNTS INCLUDE 234 BEDS AT THE [facility] Last Admin: 07/02/17 08:22 Dose: Not Given Warfarin Sodium (Coumadin) 2.5 mg PO DAILY COUNTS INCLUDE 234 BEDS AT [facility] Last Admin: 07/01/17 11:27 Dose: Not Given Warfarin Sodium (Coumadin) 2.5 mg PO DAILY COUNTS INCLUDE 234 BEDS AT THE [facility] Warfarin Sodium (Coumadin) 2.5 mg PO ONETIME ONE Stop: 07/02/17 14:01 Last Admin: 07/02/17 14:12 Dose: 2.5 mg Warfarin Sodium (Coumadin) 2.5 mg PO ONETIME ONE Stop: 07/03/17 14:01 Last Admin: 07/03/17 14:09 Dose: 2.5 mg Warfarin Sodium (Coumadin) 2.5 mg PO ONETIME ONE Stop: 07/04/17 14:01 Last Admin: 07/04/17 13:11 Dose: 2.5 mg - Exam General: Reports: Alert, Oriented, No Acute Distress. Denies: Moderate Distress , Severe Distress, Sedated, Lethargic, Obtunded HEENT: Reports: Pupils Equal, Pupils Reactive, EOMI, Mucous Membr. Moist/[place] Neck: Reports: Supple, Trachea Midline, No JVD Lungs: Reports: Normal Respiratory Effort, Decreased Breath Sounds (chronically with fair air exchange ), Wheezing (sporadic). Denies: Crackles, Rales, Rhonchi , Rub, Stridor Cardiovascular: Reports: Regular Rate, Regular Rhythm, No Murmurs GI/Abdominal Exam: Normal Bowel Sounds, Soft, Non-Tender, No Organomegaly, No Distention, No Abnormal Bruit, No Mass (Female) Exam: Deferred Rectal (Female) Exam: Deferred Back Exam: Reports: Normal Inspection, Full Range of Motion. Denies: CVA Tenderness (L), CVA Tenderness (R) Extremities: Normal Inspection, Normal Range of Motion, Non-Tender, No Pedal Edema, Normal Capillary Refill Skin: Denies: Intact, Rash, Ecchymosis Neurological: Reports: No New Focal Deficit Psy/Mental Status: Reports: Alert, Normal Affect, Normal Mood *Q Meaningful Use (DIS) - VTE *Q VTE Criteria *Q: - Stroke *Q Stroke Criteria *Q: - AMI *Q AMI Criteria *Q:
[2017-07-05] MEDS: Insulin Aspart 100 Units/ML 3 ML Pen SUBCUT SCH (08:54)
[2017-07-05] MEDS: Aspirin 81 MG Tab.Chew PO SCH (08:55)
[2017-07-05] MEDS: Potassium Chloride 10 MEQ Tab.ER PO SCH (08:55)
[2017-07-05] MEDS: Ferrous Sulfate 325 MG Tab PO SCH (08:55)
[2017-07-05] MEDS: Furosemide 80 MG Tab PO SCH (08:55)
[2017-07-05] MEDS: predniSONE 20 MG Tab PO SCH (08:55)
[2017-07-05] MEDS: glipiZIDE 5 MG Tab.ER PO SCH (08:55)
[2017-07-05] MEDS: Multivitamins,Therapeutic Tab PO SCH (08:55)
[2017-07-05] MEDS: LINAGLIPTIN 5 MG PO SCH (08:57)
[2017-07-05] MEDS: COLESTIPOL 1 GM PO SCH (10:41)
[2017-07-05] MEDS: cefTRIAXone 1 GM in Sodium Chloride 0.9% 50 ML IV SCH ×2 (10:45→10:53)
[2017-07-05] MEDS ORDERED: Warfarin 2.5 MG Tab PO ONE (14:00)
== END 2017-07-05 11:40 | disposition home or self-care (01) | DRG 191 ==
LOC: DL.ED 07:10 → UNDOADMOB 09:56 → DL.MS 09:56 → UNDOADMOB 09:57 → DL.MS 09:57 → OBSVTOIN 07-02 08:12
PROVIDERS: ADMIT Family Medicine; ATTEND Family Medicine
DX: J44.1 Chronic obstructive pulmonary disease with (acute) exacerbation (principal); N17.9 Acute kidney failure, unspecified; I13.0 Hypertensive heart and chronic kidney disease with heart failure and stage 1 through stage 4 chronic kidney disease, or unspecified chronic kidney disease; I48.2 Chronic atrial fibrillation; R04.0 Epistaxis; I50.9 Heart failure, unspecified; R09.02 Hypoxemia; D64.9 Anemia, unspecified; I67.9 Cerebrovascular disease, unspecified; E11.9 Type 2 diabetes mellitus without complications; I27.20 Pulmonary hypertension, unspecified; Z79.01 Long term (current) use of anticoagulants; Z87.891 Personal history of nicotine dependence; N18.9 Chronic kidney disease, unspecified; R53.1 Weakness
CPT/HCPCS: 36415 ×2; 71010; 80048; 80053; 82962 ×4; 83880; 85025 ×2; 85610 ×2; 94640; 96365; 96375; 96376; 99285 ×2; A9270 ×12; G0378 ×2; J0696; J1815; J2930 ×2; J7050 ×4; 94010; 94760; 96374; 97162-GP; 97167-GO; 97530-GO; 97535-GO; J7030

== ENCOUNTER 2017-08-08 06:26 | Inpatient (IN) | payer MEDICARE, MEDICAID ==
--- NOTE | 2017-08-08 06:36 | EDM.PDOC ---
<CarringtonTy - Last Filed: 08/08/17 06:33> ED HPI GENERAL MEDICAL PROBLEM - General Chief Complaint: Respiratory Problem Stated Complaint: AMBULANCE Time Seen by Provider: 08/08/17 06:33 Source of Information: Reports: Patient History Limitations: Reports: No Limitations - History of Present Illness INITIAL COMMENTS - FREE TEXT/NARRATIVE: c/o sob cough few days worse tonight. - Related Data Allergies Allergy/AdvReac Type Severity Reaction Status Date / Time atorvastatin [From Lipitor] Allergy unknown Verified 07/01/17 10:23 codeine Allergy Cannot Verified 07/01/17 10:23 Remember egg Allergy uknown Verified 07/01/17 10:51 Egg Derived Allergy unknown Verified 07/01/17 10:51 hydrochlorothiazide Allergy Cannot Verified 07/01/17 10:23 Remember latex Allergy Rash Verified 07/01/17 10:23 nickel Allergy Rash Verified 07/01/17 10:23 nylon Allergy Rasj Verified 07/01/17 10:23 Penicillins Allergy Rash Verified 07/01/17 10:23 Sulfa (Sulfonamide Allergy Rash Verified 07/01/17 10:23 Antibiotics) vitamin E (d-alpha Allergy Cannot Verified 07/01/17 10:23 tocopherol) Remember [vitamin E] calcium containing cmpd Allergy Cannot Uncoded 07/01/17 10:23 Remember chlorine Allergy Rash Uncoded 07/01/17 10:23 seasonal allergies Allergy Cannot Uncoded 07/01/17 10:23 Remember Home Meds: Home Meds Colestipol [Colestipol HCl] 5 tab PO BID 11/16/13 [History] Linagliptin [Tradjenta] 5 mg PO DAILY 11/16/13 [History] Omeprazole 20 mg PO DAILY 11/16/13 [History] Triamcinolone Acetonide [Kenalog 0.1% Crm] 1 applic .XX BID PRN 11/16/13 [ History] glipiZIDE [Glucotrol XL] 5 mg PO BID 02/20/15 [History] Warfarin [Coumadin] 2.5 mg PO DAILY 08/06/15 [History] Albuterol [Proair HFA] 2 puff INH QID PRN 10/07/15 [History] Ferrous Sulfate [Iron] 325 mg PO DAILY 10/07/15 [History] Albuterol/Ipratropium [DuoNeb 3.0-0.5 MG/3 ML] 3 ml NEB Q6HRRT neb 12/25/16 [Rx ] Budesonide [Pulmicort] 0.5 mg NEB BIDRT #60 neb 12/25/16 [Rx] Aspirin 81 mg PO DAILY 04/20/17 [History] Potassium Chloride 10 meq PO BID 04/20/17 [History] Furosemide [Lasix] 80 mg PO QAM 07/01/17 [History] Metoprolol Succinate [Toprol XL] 75 mg PO BEDTIME 07/01/17 [History] Montelukast [Singulair] 10 mg PO BEDTIME 07/01/17 [History] Multivitamin [Multivitamins] 1 cap PO DAILY 07/01/17 [History] Amoxicillin/Potassium Clav [Augmentin 875-125 Tablet] 1 each PO Q12H 5 Days #10 tablet 07/05/17 [Rx] Furosemide 60 mg PO WITHLUNCH 07/05/17 [History] Past Medical History HEENT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: Cataract, Impaired Vision Other HEENT History: catarcts bilaterally Cardiovascular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: Afib, Bacterial Endocarditis, Blood Clots/VTE/ DVT, Heart Failure, High Cholesterol, Stents Respiratory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: COPD, Pneumonia, Recurrent, SOB Gastrointestinal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: GERD, Hiatal Hernia Genitourinary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: UTI, Recurrent Other Genitourinary History: CKD [employer]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: , Spontaneous Other OB/BYN History: vaginal deliveries x5 Musculoskeletal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: Arthritis Neurological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: CVA, Migraines Psychiatric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: None Endocrine/Metabolic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: Diabetes, Type II Hematologic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: Anemia, Anticoagulation Therapy, Blood Transfusion (s), Iron Deficiency Oncologic (Cancer)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: Breast Other Oncologic History: mastectomy on left Dermatologic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: Other (See Below) Other Dermatologic History: patient reports that she has an itchy rash uses cream for this - Infectious Disease History Infectious Disease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: Chicken Pox, Measles, Mumps - Past Surgical History HEENT Surgical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: Cataract Surgery Cardiovascular Surgical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: Other (See Below) Social & Family History - Family History Family Medical History: Noncontributory HEENT: Reports: Impaired Vision Cardiac: Reports: Afib, Other (See Below) Other Cardiac Family History: stroke Musculoskeletal: Reports: None Endocrine/Metabolic: Reports: Diabetes, type II - Tobacco Use Smoking Status *Q: Former Smoker Years of Tobacco use: 20 Packs/Tins Daily: 2 Used Tobacco, but Quit: Yes Month Tobacco Last Used: 20 yrs ago Second Hand Smoke Exposure: No - Caffeine Use Caffeine Use: Reports: Coffee - Alcohol Use Days Per Week of Alcohol Use: 0 - Recreational Drug Use Recreational Drug Use: No - Living Situation & Occupation Living situation: Reports: , with Spouse ED ROS GENERAL - Review of Systems Review Of Systems: ROS reveals no pertinent complaints other than HPI. ED EXAM, GENERAL - Physical Exam Exam: See Below Exam Limited By: No Limitations General Appearance: Alert, WD/WN, Mild Distress, Moderate Distress, Other (sob) Ears: Hearing Grossly Normal Throat/Mouth: Normal Voice, No Airway Compromise Head: Atraumatic Neck: Non-Tender, Full Range of Motion Respiratory/Chest: No Accessory Muscle Use, Decreased Breath Sounds, Rales, Rhonchi, Wheezing, Splinting Cardiovascular: Regular Rate, Rhythm GI/Abdominal: Soft, Non-Tender Extremities: No Pedal Edema Neurological: Alert, Oriented, Normal Cognition, Normal Gait, No Motor/Sensory Deficits Psychiatric: Anxious Skin Exam: Warm, Dry, Normal Color Lymphatic: No Adenopathy Course - Vital Signs Last Recorded V/S: Last Vital Signs Temp 97.4 F 08/08/17 06:31 Pulse 67 08/08/17 06:31 Resp 28 H 08/08/17 06:31 BP 115/70 08/08/17 06:31 Pulse Ox 99 08/08/17 06:31 - Orders/Labs/Meds Orders: Active Orders 24 hr Category Date Time Status CULTURE BLOOD [BC] Stat Lab 08/08/17 06:42 Received INR,PT,PROTHROMBIN TIME [COAG] Stat Lab 08/08/17 08:11 Ordered MAGNESIUM [CHEM] Stat Lab 08/08/17 08:11 Ordered Labs: Laboratory Tests 08/08/17 08/08/17 08/08/17 Range/Units 06:42 06:42 06:42 WBC 8.9 (5.0-10.0) 10^3/uL RBC 3.14 L (4.2-5.4) 10^6/uL Hgb 9.1 L (12.0-16.0) g/dL Hct 30.2 L (37.0-47.0) % MCV 96.2 D (80-100) fL MCH 29.0 (27.0-34.0) pg MCHC 30.1 L (33.0-35.0) g/dL Plt Count 154 (150-450) 10^3/uL Neut % (Auto) 77.9 H (42.2-75.2) % Lymph % (Auto) 11.2 L (20.5-50.1) % [place] % (Auto) 9.0 H (2-8) % Eos % (Auto) 1.7 (1.0-3.0) % Baso % (Auto) 0.2 (0.0-1.0) % Sodium 139 (135-145) mmol/L Potassium 5.3 H (3.6-5.0) mmol/L Chloride 108 (101-111) mmol/L Carbon Dioxide 22.0 (21.0-31.0) mmol/L Anion Gap 14.3 BUN 42 H (7-18) mg/dL Creatinine 2.0 H (0.6-1.3) mg/dL Est Cr Clr Drug Dosing 22.48 mL/min Estimated GFR (MDRD) 24 BUN/Creatinine Ratio 21.00 Glucose 162 H (74-105) mg/dL Lactic Acid 1.4 (0.5-2.2) mmol/L Calcium 9.5 (8.4-10.2) mg/dl Total Bilirubin 0.8 (0.2-1.0) mg/dL AST 28 (10-42) IU/L ALT 16 (10-60) IU/L Alkaline Phosphatase 53 (42-121) IU/L Troponin I 0.02 (0.00-0.02) ng/ml B-Natriuretic Peptide 557 H (0-100) pg/ml Total Protein 8.0 (6.7-8.2) g/dl Albumin 4.0 (3.2-5.5) g/dl Globulin 4.0 Albumin/Globulin Ratio 1.00 Meds: Medications Discontinued Medications Generic Name Dose Route Start Last Admin Trade Name Freq PRN Reason Stop Dose Admin Furosemide 40 mg 08/08/17 07:45 08/08/17 08:03 Lasix IVPUSH 08/08/17 07:46 40 mg NOW ONE Administration Furosemide 40 mg 08/08/17 08:11 Lasix IVPUSH 08/08/17 08:12 NOW ONE Departure - Departure Disposition: Admitted As Inpatient 66 Clinical Impression: Chronic atrial fibrillation, Anticoagulated on Coumadin Diabetes mellitus type 2, uncomplicated Qualifiers: Diabetes mellitus shelter insulin use: with shelter use Qualified Code(s): E11.9 - Type 2 diabetes mellitus without complications; Z79.4 - nursing home ( current) use of insulin; Z79.4 - nursing home (current) use of insulin; Z79.4 - nursing home (current) use of insulin; 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 Anemia Qualifiers: Anemia type: unspecified type Qualified Code(s): D64.9 - Anemia, unspecified Congestive heart failure Qualifiers: Congestive heart failure type: unspecified congestive heart failure type Congestive heart failure chronicity: acute Qualified Code(s): I50.9 - Heart failure, unspecified - Discharge Information Forms: ED Department Discharge - My Orders Last 24 Hours: My Active Orders 08/08/17 08:11 INR,PT,PROTHROMBIN TIME [COAG] Stat MAGNESIUM [CHEM] Stat - Assessment/Plan Last 24 Hours: My Active Orders 08/08/17 08:11 INR,PT,PROTHROMBIN TIME [COAG] Stat MAGNESIUM [CHEM] Stat <Doris Easley - Last Filed: 08/08/17 08:30> Departure - Departure Time of Disposition: 08:12 Condition: Fair
[2017-08-08] MEDS ORDERED: Furosemide 40 MG/4 ML VIAL IVPUSH ONE ×2 (07:45→08:11)
[2017-08-08] MEDS ORDERED: Polyethylene Glycol 3350 Powder 17 GM Packet PO PRN (09:07)
[2017-08-08] MEDS ORDERED: Magnesium Hydroxide 400 MG/5 ML Susp 30 ML Cup PO PRN (09:07)
[2017-08-08] MEDS ORDERED: Ondansetron 4 MG/2 ML SDV IVPUSH PRN (09:07)
[2017-08-08] MEDS ORDERED: Albuterol 0.083% 2.5 MG/3 ML Neb Soln NEB PRN (09:07)
[2017-08-08] MEDS ORDERED: Zolpidem 5 MG Tab PO PRN (09:07)
[2017-08-08] MEDS ORDERED: Albuterol/Ipratropium 3.0-0.5 MG/3 ML Neb Soln NEB SCH (09:15)
[2017-08-08] MEDS ORDERED: Triamcinolone Acetonide 0.1% Crm 15 GM Tube TOP PRN (10:41)
--- NOTE | 2017-08-08 10:54 | PCM.HP ---
H&P History of Present Illness - General Date of Service: 08/08/17 Admit Problem/Dx: Admission Diagnosis/Problem Admission Diagnosis/Problem CHF, Congestive heart failure Source of Information: Patient History Limitations: Reports: No Limitations - History of Present Illness Initial Comments - Free Text/Narative: 77-year-old female with past medical history of chronic atrial fibrillation, COPD, congestive heart failure, cerebrovascular disease, hypertension, diabetes mellitus type 2 presented to the emergency room for having progressive shortness of breath since yesterday morning. She stated that 2 days ago she had head cold with runny nose and sinus congestion and yesterday morning her baseline shortness breaths markedly get worse. She was running out of breath when she just go from bed to bathroom. She admitted wheezing but no cough, fever , or chills. Patient denies nausea, vomiting, chest pain, headache, upper respiratory symptoms, abdominal pain, diarrhea, urinary symptoms, lower extremities edema, new unilateral weakness, any other symptoms or concerns. Patient saw her teacher emotionally impaired recently who according to her did not make any changes in her medication. She is having follow-up appointment with him next week. On admission her laboratory data reported WBC 8.9. Neutrophils 77.9%. INR 3.5. Sodium 139. Potassium 5.3. B UN 42. Creatinine 2.0. Glucose 162. CO2 22 10. Lactic acid 1.4. Magnesium 2.2. BNP 557. Troponin 0.02. LFTs are normal. UA is unremarkable. Patient received 80 mg of Lasix IV in the emergency room and she [id number] cc of urine output and her breathing improved. C Back Pain Score (Numeric/FACES): 6 - Related Data Allergies/Adverse Reactions: Allergies Allergy/AdvReac Type Severity Reaction Status Date / Time atorvastatin [From Lipitor] Allergy unknown Verified 08/08/17 09:16 codeine Allergy Cannot Verified 08/08/17 09:16 Remember egg Allergy uknown Verified 08/08/17 09:16 Egg Derived Allergy unknown Verified 08/08/17 09:16 hydrochlorothiazide Allergy Cannot Verified 08/08/17 09:16 Remember latex Allergy Rash Verified 08/08/17 09:16 nickel Allergy Rash Verified 08/08/17 09:16 nylon Allergy Rasj Verified 08/08/17 09:16 Penicillins Allergy Rash Verified 08/08/17 09:16 Sulfa (Sulfonamide Allergy Rash Verified 12/17/17 09:16 Antibiotics) vitamin E (d-alpha Allergy Cannot Verified 08/08/17 09:16 tocopherol) Remember [vitamin E] chlorine Allergy Rash Uncoded 08/08/17 09:16 seasonal allergies Allergy Cannot Uncoded 08/08/17 09:16 Remember Home Medications: Home Meds Colestipol [Colestipol HCl] 5 tab PO BID 11/16/13 [History] Linagliptin [Tradjenta] 5 mg PO DAILY 11/16/13 [History] Omeprazole 20 mg PO DAILY 11/16/13 [History] Triamcinolone Acetonide [Kenalog 0.1% Crm] 1 applic .XX BID PRN 11/16/13 [ History] glipiZIDE [Glucotrol XL] 10 mg PO BID 02/20/15 [History] Warfarin [Coumadin] 2.5 mg PO BEDTIME 08/06/15 [History] Albuterol [Proair HFA] 2 puff INH QID PRN 10/07/15 [History] Ferrous Sulfate [Iron] 325 mg PO DAILY 10/07/15 [History] Albuterol/Ipratropium [DuoNeb 3.0-0.5 MG/3 ML] 3 ml NEB Q6HRRT neb 12/25/16 [Rx ] Budesonide [Pulmicort] 0.5 mg NEB BIDRT #60 neb 12/25/16 [Rx] Aspirin 81 mg PO DAILY 04/20/17 [History] Potassium Chloride 30 meq PO DAILY 04/20/17 [History] Furosemide [Lasix] 80 mg PO QAM 07/01/17 [History] Metoprolol Succinate [Toprol XL] 75 mg PO BEDTIME 07/01/17 [History] Montelukast [Singulair] 10 mg PO BEDTIME 07/01/17 [History] Multivitamin [Multivitamins] 1 cap PO DAILY 07/01/17 [History] Furosemide 60 mg PO WITHLUNCH 07/05/17 [History] Past Medical History HEENT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: Cataract, Impaired Vision Other HEENT History: catarcts bilaterally. pt wears glasses. in purse at this time. Cardiovascular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: Afib, Bacterial Endocarditis, Blood Clots/VTE/ DVT, Heart Failure, High Cholesterol, Stents Respiratory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: COPD, Pneumonia, Recurrent, SOB Gastrointestinal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: GERD, Hiatal Hernia Genitourinary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: UTI, Recurrent Other Genitourinary History: CKD CLINICAL TEAM LEAD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: , Spontaneous Other OB/BYN History: vaginal deliveries x5. yougest child of cancer. one sent of twins Musculoskeletal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: Arthritis Neurological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: CVA, Migraines Other Neuro History: hx of migraines. Psychiatric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: None Endocrine/Metabolic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: Diabetes, Type II Hematologic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: Anemia, Anticoagulation Therapy, Blood Transfusion (s), Iron Deficiency Oncologic (Cancer)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: Breast Other Oncologic History: mastectomy on left Dermatologic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: Other (See Below) Other Dermatologic History: patient reports that she has an itchy rash uses cream for this - Infectious Disease History Infectious Disease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: Chicken Pox, Mumps - Past Surgical History HEENT Surgical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: Cataract Surgery Cardiovascular Surgical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: Other (See Below) Social & Family History - Family History Family Medical History: Noncontributory HEENT: Reports: Impaired Vision Cardiac: Reports: Afib, Other (See Below) Other Cardiac Family History: stroke Musculoskeletal: Reports: None Endocrine/Metabolic: Reports: Diabetes, type II - Tobacco Use Smoking Status *Q: Former Smoker Years of Tobacco use: 40 Packs/Tins Daily: 1 Used Tobacco, but Quit: Yes Month Tobacco Last Used: 1999 Second Hand Smoke Exposure: No - Caffeine Use Caffeine Use: Reports: Coffee - Alcohol Use Days Per Week of Alcohol Use: 0 - Recreational Drug Use Recreational Drug Use: No - Living Situation & Occupation Living situation: Reports: , with Spouse H&P Review of Systems - Review of Systems: Review Of Systems: ROS reveals no pertinent complaints other than HPI. Exam - Exam Exam: See Below - Vital Signs Vital Signs: Last Vital Signs Temp 36.4 C 08/08/17 09:07 Pulse 84 08/08/17 09:07 Resp 20 08/08/17 09:07 BP 114/57 L 08/08/17 09:07 Pulse Ox 93 L 08/08/17 09:41 Weight: 76.657 kg - Exam General: Alert, Oriented, Cooperative, Mild Distress. No: Moderate Distress, Severe Distress, Sedated, Lethargic, Obtunded HEENT: Conjunctiva Clear, EACs Clear, EOMI, Hearing Intact, Nares Patent, Normal Nasal Septum, Posterior Pharynx Clear, Pupils Equal, Pupils Reactive, TMs Clear, Other (Nasal congestion) Neck: Supple, Trachea Midline, +2 Carotid Pulse wo Bruit Lungs: Decreased Breath Sounds (Globally, but fair air exchange), Crackles (In bases), Rhonchi, Wheezing. No: Rub Cardiovascular: Regular Rate, Regular Rhythm GI/Abdominal Exam: Normal Bowel Sounds, Soft, Non-Tender, No Organomegaly, No Distention, No Abnormal Bruit, No Mass (Female) Exam: Deferred Rectal (Female) Exam: Deferred Back Exam: Normal Inspection, Full Range of Motion. No: CVA Tenderness (L), CVA Tenderness (R) Extremities: Normal Inspection, Normal Range of Motion, Non-Tender, Normal Capillary Refill, Pedal Edema (+1 bilateral lower extremities edema) Skin: Warm, Dry, Intact Neurological: Cranial Nerves Intact, Strength Equal Bilateral. No: Focal Deficit Neuro Extensive - Mental Status: Alert, Oriented x3 Psychiatric: Alert, Normal Affect, Normal Mood - Patient Data Lab Results Last 24 hrs: Laboratory Results - last 24 hr 08/08/17 Range/Units 09:10 Urine Color Straw (YELLOW) Urine Appearance Slightly cloudy (CLEAR) Urine pH 5.0 (5.0-9.0) Ur Specific Magazine 1.015 (1.005-1.030) Urine Protein Trace H (NEGATIVE) Urine Glucose (UA) Negative (NEGATIVE) Urine Ketones Negative (NEGATIVE) Urine Occult Blood Trace-intact H (NEGATIVE) Urine Nitrite Negative (NEGATIVE) Urine Bilirubin Negative (NEGATIVE) Urine Urobilinogen 0.2 (0.2-1.0) mg/dL Ur Leukocyte Esterase Negative (NEGATIVE) Urine RBC 0-5 /HPF Urine WBC 0-5 (0-5/HPF) /HPF Ur Epithelial Cells Few /HPF Amorphous Sediment Few (0/HPF) /HPF Urine Bacteria Rare (0-FEW/HPF) /HPF Urine Mucus Few H /LPF Result Diagrams: 08/08/17 06:42 08/08/17 06:42 *Q Meaningful Use (ADM) - VTE *Q VTE Criteria *Q: - Stroke *Q Stroke Criteria *Q: - AMI *Q AMI Criteria *Q: - Problem List (1) Acute on chronic congestive heart failure SNOMED Code(s): 86678678 ICD Code: I50.9 - HEART FAILURE, UNSPECIFIED Status: Acute Priority: High Current Visit: Yes (2) Anticoagulated on Coumadin SNOMED Code(s): 63546416 ICD Code: Z51.81 - ENCOUNTER FOR THERAPEUTIC DRUG LEVEL MONITORING; 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 ANTICOAGULANTS Status: Chronic Current Visit: Yes (3) Chronic atrial fibrillation SNOMED Code(s): 562181467 ICD Code: I48.2 - CHRONIC ATRIAL FIBRILLATION Status: Chronic Current Visit: Yes (4) Diabetes mellitus type 2, uncomplicated SNOMED Code(s): 961521903 ICD Code: E11.9 - TYPE 2 DIABETES MELLITUS WITHOUT COMPLICATIONS Status: Chronic Current Visit: Yes Qualifiers: Diabetes mellitus fci insulin use: with fci use Qualified Code( s): E11.9 - Type 2 diabetes mellitus without complications; Z79.4 - retirement ( current) use of insulin; 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; 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; 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 (5) COPD with acute exacerbation SNOMED Code(s): 336099207 ICD Code: J44.1 - CHRONIC OBSTRUCTIVE PULMONARY DISEASE W (ACUTE) EXACERBATION Status: Acute Priority: High Current Visit: Yes (6) Coronary artery disease SNOMED Code(s): 78156539 ICD Code: I25.10 - ATHSCL HEART DISEASE OF [place] CORONARY ARTERY W/O ANG PCTRS Status: Chronic Current Visit: No Onset Date: 04/04/15 (7) Hypertension SNOMED Code(s): 48607908 ICD Code: I10 - ESSENTIAL (PRIMARY) HYPERTENSION Status: Chronic Current Visit: No (8) Pulmonary hypertension, moderate to severe SNOMED Code(s): 94350253 ICD Code: I27.2 - OTHER SECONDARY PULMONARY HYPERTENSION * DO NOT USE * Status: Chronic Current Visit: No Onset Date: 03/26/15 Problem List Initiated/Reviewed/Updated: Yes Orders Last 24hrs: Active Orders 24 hr Category Date Time Status Patient Status [ADT] Routine ADT 08/08/17 09:07 Active Bedrest Bathroom Privileges [RC] ASDIRECTED Care 08/08/17 09:07 Active Height and Weight [RC] 0600 Care 08/08/17 09:07 Active Intake and Output [RC] Q6H Care 08/08/17 09:08 Active Notify Provider Vital Signs [RC] ASDIRECTED Care 08/08/17 09:08 Active Oxygen Therapy [RC] PRN Care 08/08/17 09:07 Active RT Aerosol Therapy [RC] ASDIRECTED Care 08/08/17 09:10 Active VTE/DVT Education [RC] PER UNIT ROUTINE Care 08/08/17 09:07 Active Vital Signs [RC] Q4H Care 08/08/17 09:07 Active 2 Gram Sodium Diet [DIET] Diet 08/08/17 Breakfast Active Fluid Restriction [DIET] Diet 08/08/17 Lunch Active Echo Comp wo Cont [US] Routine Exams 08/09/17 07:00 Stop Req Echo Comp wo Cont [US] Routine Exams 08/11/17 07:00 Ordered B-TYPE NATRIURETIC PEPTIDE,BNP [CHEM] AM Lab 08/09/17 05:11 Ordered BASIC METABOLIC PANEL,BMP [CHEM] AM Lab 08/09/17 05:11 Ordered BASIC METABOLIC PANEL,BMP [CHEM] Routine Lab 08/08/17 18:00 Ordered CBC WITH AUTO DIFF [HEME] AM Lab 08/09/17 05:11 Ordered TROPONIN I [CHEM] AM Lab 08/09/17 05:11 Ordered Acetaminophen [Tylenol] Med 08/08/17 09:07 Active 650 mg PO Q4H PRN Albuterol [Proventil Neb Soln] Med 08/08/17 09:07 Active 2.5 mg NEB Q2H PRN Albuterol/Ipratropium [DuoNeb 3.0-0.5 MG/3 ML] Med 08/08/17 09:15 Active 3 ml NEB Q6H Furosemide [Lasix] Med 08/08/17 20:00 Active 80 mg IVPUSH Q12H Magnesium Hydroxide [Milk of Magnesia] Med 08/08/17 09:07 Active 30 ml PO Q12H PRN Ondansetron [Zofran] Med 08/08/17 09:07 Active 4 mg IVPUSH Q6H PRN Polyethylene Glycol 3350 [MiraLAX] Med 08/08/17 09:07 Active 17 gm PO DAILY PRN Warfarin Pharmacy to Dose [Pharmacy to Dose - Warfarin] Med 08/08/17 09:15 Pending 1 dose .XX ASDIRECTED Zolpidem [Ambien] Med 08/08/17 09:07 Active 5 mg PO BEDTIME PRN Medication Orders Acetaminophen (Tylenol) 650 mg PO Q4H PRN PRN Reason: Pain (Mild 1-3)/fever Albuterol (Proventil Neb Soln) 2.5 mg NEB Q2H PRN PRN Reason: shortness of breath/wheezing Albuterol/Ipratropium (Duoneb 3.0-0.5 Mg/3 Ml) 3 ml NEB Q6H NIXON Last Admin: 08/08/17 09:40 Dose: 3 ml Furosemide (Lasix) 80 mg IVPUSH Q12H NIX[facility] Magnesium Hydroxide (Milk Of Magnesia) 30 ml PO Q12H PRN PRN Reason: Constipation Ondansetron HCl (Zofran) 4 mg IVPUSH Q6H PRN PRN Reason: Nausea/Vomiting Polyethylene Glycol (Miralax) 17 gm PO DAILY PRN PRN Reason: Constipation Warfarin Sodium (Pharmacy To Dose - Warfarin) 1 dose .XX ASDIRECTED N[facility] Zolpidem Tartrate (Ambien) 5 mg PO BEDTIME PRN PRN Reason: Sleep Assessment/Plan Comment:: COPD exacerbation -DuoNeb every 4 hours albuterol every 2 hours as needed Continue Pulmicort and Singulair -Prednisone 40 mg daily -Rocephin -Check for influenza -Sputum and blood cultures ordered Incentive spirometer Acute on chronic congestive heart failure Patient received 80 mg of Lasix IV in the emergency room. -Continue Lasix 80 mg IV every 12 hours for other 3 doses -Her blood pressure is on the low normal range, so I will avoid adding NIKOLAI inhibitor/ARBs at this time Continue metoprolol succinate Hyperkalemia I believe it will improve with the IV Lasix -Recheck potassium later this evening Pulmonary hypertension, chronic Continue with nasal oxygen Anemia, chronic Hemoglobin is at baseline Continue iron sulfate Chronic atrial fibrillation Continue metoprolol and warfarin Pharmacy is consulted to do his warfarin Hypertension Continue metoprolol succinate Coronary artery disease, chronic No chest pain Continue with the Toprol succinate and aspirin DVT prophylaxis: She is on Coumadin She wants to be DNR for CODE STATUS Plan of care was discussed with patient and she verbalized understanding and agreed with plan
[2017-08-08] MEDS: Albuterol/Ipratropium 3.0-0.5 MG/3 ML Neb Soln NEB SCH ×4 (11:05→22:42)
[2017-08-08] MEDS: cefTRIAXone 1 GM Vial IVPUSH SCH (11:17)
[2017-08-08] MEDS: predniSONE 20 MG Tab PO SCH (11:35)
[2017-08-08] MEDS: Acetaminophen 325 MG Tab PO PRN ×3 (12:59→21:01)
[2017-08-08] MEDS ORDERED: [UNRECOGNIZED DRUG - REMARK] PO ONE (14:00)
[2017-08-08] MEDS: Budesonide 0.5 MG/2 ML Neb Susp NEB SCH (17:58)
[2017-08-08] MEDS: Furosemide 100 MG/10 ML SDV IVPUSH SCH (19:51)
[2017-08-08] MEDS ORDERED: Furosemide 20 MG/2 ML VIAL IVPUSH SCH (20:00)
[2017-08-08] MEDS: COLESTIPOL 1 GM PO SCH (20:59)
[2017-08-08] MEDS ORDERED: Warfarin 2.5 MG Tab PO SCH (21:00)
[2017-08-08] MEDS: Montelukast 10 MG Tab PO SCH (21:00)
[2017-08-08] MEDS: glipiZIDE 5 MG Tab.ER PO SCH (21:00)
[2017-08-08] MEDS: Metoprolol Succinate 25 MG Tab.ER PO SCH (21:00)
[2017-08-09] MEDS: Albuterol/Ipratropium 3.0-0.5 MG/3 ML Neb Soln NEB SCH ×6 (03:00→22:13)
[2017-08-09] MEDS: Acetaminophen 325 MG Tab PO PRN ×5 (03:32→22:40)
[2017-08-09] MEDS: Budesonide 0.5 MG/2 ML Neb Susp NEB SCH ×2 (07:02→18:25)
[2017-08-09] MEDS: predniSONE 20 MG Tab PO SCH (07:27)
[2017-08-09] MEDS: Sodium Chloride 0.9% 10 ML Syringe FLUSH PRN ×3 (07:28→21:02)
[2017-08-09] MEDS: Furosemide 100 MG/10 ML SDV IVPUSH SCH (07:28)
[2017-08-09] MEDS: Aspirin 81 MG Tab.Chew PO SCH (09:00)
[2017-08-09] MEDS: Multivitamins,Therapeutic Tab PO SCH (09:00)
[2017-08-09] MEDS ORDERED: Furosemide 20 MG Tab PO SCH (09:00)
[2017-08-09] MEDS: Omeprazole 20 MG Cap.CR PO SCH (09:00)
[2017-08-09] MEDS: Ferrous Sulfate 325 MG Tab PO SCH (09:00)
[2017-08-09] MEDS: glipiZIDE 5 MG Tab.ER PO SCH ×2 (09:01→20:45)
[2017-08-09] MEDS: LINAGLIPTIN 5 MG PO SCH (09:02)
[2017-08-09] MEDS: COLESTIPOL 1 GM PO SCH ×2 (09:02→20:47)
--- NOTE | 2017-08-09 09:15 | PCM.PN ---
- General Info Date of Service: 08/09/17 Admission Dx/Problem (Free Text): Admission Diagnosis/Problem Admission Diagnosis/Problem CHF, Congestive heart failure Subjective Update: Patient stated that she is feeling better. Her shortness breath improved. She still doesn't have a lot of cough. She denies fever, chills, nausea, vomiting, abdominal pain, urinary symptoms, unilateral weakness/numbness/tingling, any other symptoms or concerns. - Patient Data Vitals - Most Recent: Last Vital Signs Temp 36.7 C 08/09/17 07:33 Pulse 88 08/09/17 07:33 Resp 20 08/09/17 07:33 BP 119/61 08/09/17 07:33 Pulse Ox 98 08/09/17 07:33 Weight - Most Recent: 74.661 kg I&O - Last 24 Hours: Intake & Output 08/08/17 08/09/17 08/09/17 22:59 06:59 14:59 Intake Total 360 120 Output Total 850 700 Balance -490 -700 120 Lab Results Last 24 Hours: Laboratory Results - last 24 hr 08/08/17 08/08/17 08/09/17 Range/Units 09:10 20:06 06:05 WBC (5.0-10.0) 10^3/uL RBC (4.2-5.4) 10^6/uL Hgb (12.0-16.0) g/dL Hct (37.0-47.0) % MCV (80-100) fL MCH (27.0-34.0) pg MCHC (33.0-35.0) g/dL Plt Count (150-450) 10^3/uL Neut % (Auto) (42.2-75.2) % Lymph % (Auto) (20.5-50.1) % [place] % (Auto) (2-8) % Eos % (Auto) (1.0-3.0) % Baso % (Auto) (0.0-1.0) % Sodium 137 138 (135-145) mmol/L Potassium 4.3 3.9 (3.6-5.0) mmol/L Chloride 104 103 (101-111) mmol/L Carbon Dioxide 21.0 24.0 (21.0-31.0) mmol/L Anion Gap 16.3 14.9 BUN 42 H 44 H (7-18) mg/dL Creatinine 2.1 H 2.1 H (0.6-1.3) mg/dL Est Cr Clr Drug Dosing 21.41 21.41 mL/min Estimated GFR (MDRD) 23 23 Glucose 292 H 169 H (74-105) mg/dL Calcium 9.0 9.0 (8.4-10.2) mg/dl Troponin I 0.02 (0.00-0.02) ng/ml B-Natriuretic Peptide 525 H (0-100) pg/ml Urine Color Straw (YELLOW) Urine Appearance Slightly cloudy (CLEAR) Urine pH 5.0 (5.0-9.0) Ur Specific [place] 1.015 (1.005-1.030) Urine Protein Trace H (NEGATIVE) Urine Glucose (UA) Negative (NEGATIVE) Urine Ketones Negative (NEGATIVE) Urine Occult Blood Trace-intact H (NEGATIVE) Urine Nitrite Negative (NEGATIVE) Urine Bilirubin Negative (NEGATIVE) Urine Urobilinogen 0.2 (0.2-1.0) mg/dL Ur Leukocyte Esterase Negative (NEGATIVE) Urine RBC 0-5 /HPF Urine WBC 0-5 (0-5/HPF) /HPF Ur Epithelial Cells Few /HPF Amorphous Sediment Few (0/HPF) /HPF Urine Bacteria Rare (0-FEW/HPF) /HPF Urine Mucus Few H /LPF 08/09/17 Range/Units 06:05 WBC 6.6 (5.0-10.0) 10^3/uL RBC 2.89 L (4.2-5.4) 10^6/uL Hgb 8.3 L (12.0-16.0) g/dL Hct 26.9 L (37.0-47.0) % MCV 93.1 D (80-100) fL MCH 28.7 (27.0-34.0) pg MCHC 30.9 L (33.0-35.0) g/dL Plt Count 131 L (150-450) 10^3/uL Neut % (Auto) 78.1 H (42.2-75.2) % Lymph % (Auto) 10.2 L (20.5-50.1) % [place] % (Auto) 11.2 H (2-8) % Eos % (Auto) 0.2 L (1.0-3.0) % Baso % (Auto) 0.3 (0.0-1.0) % Sodium (135-145) mmol/L Potassium (3.6-5.0) mmol/L Chloride (101-111) mmol/L Carbon Dioxide (21.0-31.0) mmol/L Anion Gap BUN (7-18) mg/dL Creatinine (0.6-1.3) mg/dL Est Cr Clr Drug Dosing mL/min Estimated GFR (MDRD) Glucose (74-105) mg/dL Calcium (8.4-10.2) mg/dl Troponin I (0.00-0.02) ng/ml B-Natriuretic Peptide (0-100) pg/ml Urine Color (YELLOW) Urine Appearance (CLEAR) Urine pH (5.0-9.0) Ur Specific [place] (1.005-1.030) Urine Protein (NEGATIVE) Urine Glucose (UA) (NEGATIVE) Urine Ketones (NEGATIVE) Urine Occult Blood (NEGATIVE) Urine Nitrite (NEGATIVE) Urine Bilirubin (NEGATIVE) Urine Urobilinogen (0.2-1.0) mg/dL Ur Leukocyte Esterase (NEGATIVE) Urine RBC /HPF Urine WBC (0-5/HPF) /HPF Ur Epithelial Cells /HPF Amorphous Sediment (0/HPF) /HPF Urine Bacteria (0-FEW/HPF) /HPF Urine Mucus /LPF Rich Results Last 24 Hours: Microbiology 08/08/17 13:03 Influenza Type A Antigen Screen - Final Nasopharyngeal Swab - Nare, Right NEGATIVE INFLUENZA A VIRUS AG Influenza Type B Antigen Screen - Final NEGATIVE INFLUENZA B VIRUS AG Med Orders - Current: Current Medications Acetaminophen (Tylenol) 650 mg PO Q4H PRN PRN Reason: Pain (Mild 1-3)/fever Last Admin: 08/09/17 07:26 Dose: 650 mg Albuterol (Proventil Neb Soln) 2.5 mg NEB Q2H PRN PRN Reason: shortness of breath/wheezing Albuterol/Ipratropium (Duoneb 3.0-0.5 Mg/3 Ml) 3 ml NEB Q4H [facility] Last Admin: 08/09/17 07:02 Dose: 3 ml Aspirin (Aspirin) 81 mg PO DAILY [facility] Last Admin: 08/09/17 09:00 Dose: 81 mg Budesonide (Pulmicort) 0.5 mg NEB BIDRT [facility] Last Admin: 08/09/17 07:02 Dose: 0.5 mg Ceftriaxone Sodium (Rocephin) 1 gm IVPUSH Q24H [facility] Last Admin: 08/08/17 11:17 Dose: 1 gm Ferrous Sulfate (Ferrous Sulfate) 325 mg PO DAILY [facility] Last Admin: 08/09/17 09:00 Dose: 325 mg Furosemide (Lasix) 60 mg PO WITHLUNCH [facility] Furosemide (Lasix) 80 mg PO QAM [facility] Glipizide (Glucotrol Xl) 10 mg PO BID [facility] Last Admin: 08/09/17 09:01 Dose: 10 mg Magnesium Hydroxide (Milk Of Magnesia) 30 ml PO Q12H PRN PRN Reason: Constipation Metoprolol Succinate (Toprol Xl) 75 mg PO BEDTIME [facility] Last Admin: 08/08/17 21:00 Dose: 75 mg Montelukast Sodium (Singulair) 10 mg PO BEDTIME [facility] Last Admin: 08/08/17 21:00 Dose: 10 mg Multivitamins (Thera) 1 each PO DAILY [facility] Last Admin: 08/09/17 09:00 Dose: 1 each Colestipol 1 Gram (Own Med) 0 tab PO BID [facility] Last Admin: 08/09/17 09:02 Dose: 5 tab Linagliptin [ Tradjenta] 5mg Own Med 5 mg PO DAILY [facility] Last Admin: 08/09/17 09:02 Dose: 5 mg Omeprazole (Omeprazole) 20 mg PO DAILY [facility] Last Admin: 08/09/17 09:00 Dose: 20 mg Ondansetron HCl (Zofran) 4 mg IVPUSH Q6H PRN PRN Reason: Nausea/Vomiting Polyethylene Glycol (Miralax) 17 gm PO DAILY PRN PRN Reason: Constipation Last Admin: 08/09/17 09:06 Dose: 17 gm Potassium Chloride (Klor-Con 10) 30 meq PO DAILY [facility] Prednisone (Prednisone) 40 mg PO WITHBREAKFAST [facility] Last Admin: 08/09/17 07:27 Dose: 40 mg Sodium Chloride (Saline Flush) 10 ml FLUSH ASDIRECTED PRN PRN Reason: Keep Vein Open Last Admin: 08/09/17 07:28 Dose: 10 ml Triamcinolone Acetonide (Triamcinolone Acetonide 0.1% Crm) 0 gm TOP BID PRN PRN Reason: Itching Warfarin Sodium (Pharmacy To Dose - Warfarin) 1 dose .XX ASDIRECTED [facility] Zolpidem Tartrate (Ambien) 5 mg PO BEDTIME PRN PRN Reason: Sleep Discontinued Medications Albuterol/Ipratropium (Duoneb 3.0-0.5 Mg/3 Ml) 3 ml NEB Q6H [facility] Last Admin: 08/08/17 09:40 Dose: 3 ml Furosemide (Lasix) 40 mg IVPUSH NOW ONE Stop: 08/08/17 07:46 Last Admin: 08/08/17 08:03 Dose: 40 mg Furosemide (Lasix) 40 mg IVPUSH NOW ONE Stop: 08/08/17 08:12 Last Admin: 08/08/17 08:27 Dose: 40 mg Furosemide (Lasix) 80 mg IVPUSH Q12H [facility] Stop: 08/09/17 20:01 Furosemide (Lasix) 80 mg IVPUSH BIDDIURETIC [facility] Stop: 08/09/17 14:01 Last Admin: 08/09/17 07:28 Dose: 80 mg Furosemide (Lasix) 80 mg PO QAM [facility] Warfarin Sodium (Coumadin) 2.5 mg PO BEDTIME [facility] Warfarin Sodium (Coumadin) 0 mg PO ONETIME ONE Stop: 08/08/17 14:01 Last Admin: 08/08/17 13:20 Dose: Not Given - Exam General: Alert, Oriented, Cooperative, No Acute Distress, Mild Distress, Moderate Distress. No: Severe Distress, Sedated, Lethargic, Obtunded HEENT: Pupils Equal, Pupils Reactive, Mucous Membr. Moist/[place] Neck: Supple, Trachea Midline, No JVD Lungs: Decreased Breath Sounds (Improved from yesterday), Crackles (In bases), Wheezing Cardiovascular: Regular Rate, Regular Rhythm GI/Abdominal Exam: Normal Bowel Sounds, Soft, Non-Tender, No Organomegaly, No Distention, No Abnormal Bruit, No Mass (Female) Exam: Deferred Back Exam: Normal Inspection, Full Range of Motion. No: CVA Tenderness (L), CVA Tenderness (R) Extremities: Normal Inspection, Normal Range of Motion, Non-Tender, No Pedal Edema, Normal Capillary Refill Skin: Dry, Intact Neurological: No New Focal Deficit Psy/Mental Status: Alert, Normal Affect, Normal Mood - Problem List & Annotations (1) Acute on chronic congestive heart failure SNOMED Code(s): 63202327 Code(s): I50.9 - HEART FAILURE, UNSPECIFIED Status: Acute Priority: High Current Visit: Yes (2) Anticoagulated on Coumadin SNOMED Code(s): 89100478 Code(s): Z51.81 - ENCOUNTER FOR THERAPEUTIC DRUG LEVEL MONITORING; Z79.01 - NURSING HOME (CURRENT) USE OF ANTICOAGULANTS Status: Chronic Current Visit: Yes (3) Chronic atrial fibrillation SNOMED Code(s): 031945391 Code(s): I48.2 - CHRONIC ATRIAL FIBRILLATION Status: Chronic Current Visit: Yes (4) Diabetes mellitus type 2, uncomplicated SNOMED Code(s): 072500131 Code(s): E11.9 - TYPE 2 DIABETES MELLITUS WITHOUT COMPLICATIONS Status: Chronic Current Visit: Yes Qualifiers: Diabetes mellitus [facility] insulin use: with lobsterman use Qualified Code( s): E11.9 - Type 2 diabetes mellitus without complications; Z79.4 - senior care ( current) use of insulin; Z79.4 - ferry terminal 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 of 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; Z79.4 - ferry terminal 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 of 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; Z79.4 - ferry terminal 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 of 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 (5) COPD with acute exacerbation SNOMED Code(s): 368979950 Code(s): J44.1 - CHRONIC OBSTRUCTIVE PULMONARY DISEASE W (ACUTE) EXACERBATION Status: Acute Priority: High Current Visit: Yes (6) Coronary artery disease SNOMED Code(s): 48059552 Code(s): I25.10 - ATHSCL HEART DISEASE OF [place] CORONARY ARTERY W/O ANG PCTRS Status: Chronic Current Visit: No Onset Date: 04/04/15 (7) Hypertension SNOMED Code(s): 03136041 Code(s): I10 - ESSENTIAL (PRIMARY) HYPERTENSION Status: Chronic Current Visit: No (8) Pulmonary hypertension, moderate to severe SNOMED Code(s): 87610603 Code(s): I27.2 - OTHER SECONDARY PULMONARY HYPERTENSION * DO NOT USE * Status: Chronic Current Visit: No Onset Date: 03/26/15 - Problem List Review Problem List Initiated/Reviewed/Updated: Yes - My Orders Last 24 Hours: My Active Orders 08/08/17 09:07 Patient Status [ADT] Routine Bedrest Bathroom Privileges [RC] ASDIRECTED Height and Weight [RC] 0600 Oxygen Therapy [RC] PRN VTE/DVT Education [RC] PER UNIT ROUTINE Vital Signs [RC] 07,11,15,19,23,03 Acetaminophen [Tylenol] 650 mg PO Q4H PRN Albuterol [Proventil Neb Soln] 2.5 mg NEB Q2H PRN Magnesium Hydroxide [Milk of Magnesia] 30 ml PO Q12H PRN Ondansetron [Zofran] 4 mg IVPUSH Q6H PRN Polyethylene Glycol 3350 [MiraLAX] 17 gm PO DAILY PRN Zolpidem [Ambien] 5 mg PO BEDTIME PRN 08/08/17 09:08 Intake and Output [RC] Q6H Notify Provider Vital Signs [RC] ASDIRECTED 08/08/17 09:10 RT Aerosol Therapy [RC] ASDIRECTED 08/08/17 09:15 Warfarin Pharmacy to Dose [Pharmacy to Dose - Warfarin] 1 dose .XX ASDIRECTED 08/08/17 10:41 Triamcinolone Acetonide [Triamcinolone Acetonide 0.1% Crm] 0 gm TOP BID PRN 08/08/17 10:44 Code Status [Resuscitation Status] Routine 08/08/17 10:46 Albuterol/Ipratropium [DuoNeb 3.0-0.5 MG/3 ML] 3 ml NEB Q4H 08/08/17 10:50 CULTURE SPUTUM + SMEAR [RM] Routine 08/08/17 11:00 Incentive Spirometry [RT Incentive Spirometry] [RC] ASDIRECTED cefTRIAXone [Rocephin] 1 gm IVPUSH Q24H predniSONE 40 mg PO WITHBREAKFAST 08/08/17 18:00 Budesonide [Pulmicort] 0.5 mg NEB BIDRT 08/08/17 21:00 Colestipol 0 tab PO BID Metoprolol Succinate [Toprol XL] 75 mg PO BEDTIME Montelukast [Singulair] 10 mg PO BEDTIME Potassium Chloride [Klor-Con 10] 30 meq PO DAILY glipiZIDE [Glucotrol XL] 10 mg PO BID 08/08/17 21:28 Peripheral IV Care [RC] Sodium Chloride 0.9% [Saline Flush] 10 ml FLUSH ASDIRECTED PRN Peripheral IV Insertion Adult [OM.PC] Routine 08/08/17 Lunch Fluid Restriction [DIET] 08/09/17 07:00 Echo Comp wo Cont [US] Routine 08/09/17 09:00 Aspirin 81 mg PO DAILY Ferrous Sulfate 325 mg PO DAILY Linagliptin [Tradjenta] 5 mg PO DAILY Multivitamins,Therapeutic [Thera] 1 each PO DAILY Omeprazole 20 mg PO DAILY 08/09/17 12:00 Furosemide [Lasix] 60 mg PO WITHLUNCH 08/10/17 05:11 BASIC METABOLIC PANEL,BMP [CHEM] AM CBC WITH AUTO DIFF [HEME] AM 08/10/17 09:00 Furosemide [Lasix] 80 mg PO QAM 08/11/17 07:00 Echo Comp wo Cont [US] Routine - Plan Plan:: 77-year-old female With history of fair COPD and CHF presented with shortness breath. Her symptoms are related to CAD exacerbation and mild worsening in her CHF. COPD exacerbation -DuoNeb every 4 hours albuterol every 2 hours as needed Continue Pulmicort and Singulair -Prednisone 40 mg daily -Rocephin -Check for influenza -Awaiting for final Sputum and blood cultures Incentive spirometer Acute on chronic congestive heart failure She received 3 doses of Lasix 80 mg IV every 12 hours -Restart her home Lasix orally -Her blood pressure is on the low normal range, so I will avoid adding NIKOLAI inhibitor/ARBs at this time Continue metoprolol succinate Hyperkalemia improve with the IV Lasix Pulmonary hypertension, chronic Continue with nasal oxygen Anemia, chronic Continue iron sulfate Chronic atrial fibrillation Continue metoprolol and warfarin Pharmacy is consulted to do his warfarin Hypertension Continue metoprolol succinate Coronary artery disease, chronic No chest pain Continue with the Toprol succinate and aspirin DVT prophylaxis: She is on Coumadin She wants to be DNR for CODE STATUS Plan of care was discussed with patient and she verbalized understanding and agreed with plan
[2017-08-09] MEDS: Furosemide 20 MG Tab PO SCH (11:43)
[2017-08-09] MEDS: cefTRIAXone 1 GM Vial IVPUSH SCH (11:44)
[2017-08-09] MEDS: Potassium Chloride 10 MEQ Tab.ER PO SCH (16:41)
[2017-08-09] MEDS: Montelukast 10 MG Tab PO SCH (20:45)
[2017-08-09] MEDS: Metoprolol Succinate 25 MG Tab.ER PO SCH (20:52)
[2017-08-10] MEDS: Albuterol/Ipratropium 3.0-0.5 MG/3 ML Neb Soln NEB SCH ×5 (02:26→18:32)
[2017-08-10] MEDS: Acetaminophen 325 MG Tab PO PRN (02:46)
[2017-08-10] MEDS ORDERED: cefTRIAXone 1 GM Vial IV ONE (11:19)
[2017-08-10] MEDS ORDERED: predniSONE 20 MG Tab PO ONE (11:19)
[2017-08-10] MEDS ORDERED: Furosemide 20 MG Tab PO ONE (11:19)
[2017-08-10] MEDS ORDERED: glipiZIDE 5 MG Tab.ER PO ONE (11:19)
[2017-08-10] MEDS ORDERED: Aspirin 81 MG Tab.Chew PO ONE (11:19)
[2017-08-10] MEDS ORDERED: Multivitamins,Therapeutic Tab PO ONE (11:19)
[2017-08-10] MEDS ORDERED: Budesonide 0.5 MG/2 ML Neb Susp INH ONE (11:19)
[2017-08-10] MEDS ORDERED: Metoprolol Succinate 25 MG Tab.ER PO ONE (11:19)
[2017-08-10] MEDS ORDERED: Montelukast 10 MG Tab PO ONE (11:19)
[2017-08-10] MEDS ORDERED: Warfarin 2 MG Tab PO ONE (11:19)
[2017-08-10] MEDS ORDERED: Albuterol/Ipratropium 3.0-0.5 MG/3 ML Neb Soln INH ONE (11:19)
[2017-08-10] MEDS ORDERED: Ferrous Sulfate 325 MG Tab PO ONE (11:19)
[2017-08-10] MEDS ORDERED: Potassium Chloride 10 MEQ Tab.ER PO ONE (11:19)
[2017-08-10] MEDS ORDERED: Acetaminophen 325 MG Tab PO ONE (11:19)
[2017-08-10] MEDS ORDERED: Omeprazole 20 MG Cap.CR PO ONE (11:19)
[2017-08-10] MEDS: Budesonide 0.5 MG/2 ML Neb Susp NEB SCH ×2 (13:15→18:32)
[2017-08-10] MEDS: COLESTIPOL 1 GM PO SCH ×2 (13:16→22:09)
[2017-08-10] MEDS: Potassium Chloride 10 MEQ Tab.ER PO SCH (13:16)
[2017-08-10] MEDS: Aspirin 81 MG Tab.Chew PO SCH (13:16)
[2017-08-10] MEDS: glipiZIDE 5 MG Tab.ER PO SCH ×2 (13:16→22:10)
[2017-08-10] MEDS: predniSONE 20 MG Tab PO SCH (13:16)
[2017-08-10] MEDS: Ferrous Sulfate 325 MG Tab PO SCH (13:16)
[2017-08-10] MEDS: cefTRIAXone 1 GM Vial IVPUSH SCH (13:17)
[2017-08-10] MEDS: Furosemide 20 MG Tab PO SCH ×2 (13:17)
[2017-08-10] MEDS: LINAGLIPTIN 5 MG PO SCH (13:17)
[2017-08-10] MEDS: Multivitamins,Therapeutic Tab PO SCH (13:17)
[2017-08-10] MEDS: Omeprazole 20 MG Cap.CR PO SCH (13:17)
--- NOTE | 2017-08-10 17:40 | PCM.PN ---
- General Info Date of Service: 08/10/17 Admission Dx/Problem (Free Text): Admission Diagnosis/Problem Admission Diagnosis/Problem CHF, Congestive heart failure Subjective Update: Patient stated that she is continuing to feeling better. Her shortness breath improved. She still doesn't have a lot of cough. She denies fever, chills, nausea, vomiting, abdominal pain, urinary symptoms, unilateral weakness/numbness /tingling, any other symptoms or concerns. - Patient Data Vitals - Most Recent: Last Vital Signs Temp 37.0 C 08/10/17 14:43 Pulse 92 08/10/17 14:43 Resp 20 08/10/17 14:43 BP 123/63 08/10/17 14:43 Pulse Ox 100 08/10/17 14:43 Weight - Most Recent: 74.661 kg I&O - Last 24 Hours: Intake & Output 08/10/17 08/10/17 08/10/17 06:59 14:59 22:59 Output Total 100 Balance -100 Med Orders - Current: Current Medications Acetaminophen (Tylenol) 650 mg PO Q4H PRN PRN Reason: Pain (Mild 1-3)/fever Last Admin: 08/10/17 02:46 Dose: 650 mg Albuterol (Proventil Neb Soln) 2.5 mg NEB Q2H PRN PRN Reason: shortness of breath/wheezing Albuterol/Ipratropium (Duoneb 3.0-0.5 Mg/3 Ml) 3 ml NEB Q4H [facility] Last Admin: 08/10/17 13:15 Dose: Not Given Aspirin (Aspirin) 81 mg PO DAILY [facility] Last Admin: 08/10/17 13:16 Dose: Not Given Budesonide (Pulmicort) 0.5 mg NEB BIDRT [facility] Last Admin: 08/10/17 13:15 Dose: Not Given Ceftriaxone Sodium (Rocephin) 1 gm IVPUSH Q24H [facility] Last Admin: 08/10/17 13:17 Dose: Not Given Ferrous Sulfate (Ferrous Sulfate) 325 mg PO DAILY [facility] Last Admin: 08/10/17 13:16 Dose: Not Given Furosemide (Lasix) 60 mg PO WITHLUNCH [facility] Last Admin: 08/10/17 13:17 Dose: Not Given Furosemide (Lasix) 80 mg PO QAM [facility] Last Admin: 08/10/17 13:17 Dose: Not Given Glipizide (Glucotrol Xl) 10 mg PO BID [facility] Last Admin: 08/10/17 13:16 Dose: Not Given Magnesium Hydroxide (Milk Of Magnesia) 30 ml PO Q12H PRN PRN Reason: Constipation Metoprolol Succinate (Toprol Xl) 75 mg PO BEDTIME [facility] Last Admin: 08/09/17 20:52 Dose: Not Given Montelukast Sodium (Singulair) 10 mg PO BEDTIME [facility] Last Admin: 08/09/17 20:45 Dose: 10 mg Multivitamins (Thera) 1 each PO DAILY [facility] Last Admin: 08/10/17 13:17 Dose: Not Given Colestipol 1 Gram (Own Med) 0 tab PO BID [facility] Last Admin: 08/10/17 13:16 Dose: Not Given Linagliptin [ Tradjenta] 5mg Own Med 5 mg PO DAILY [facility] Last Admin: 08/10/17 13:17 Dose: Not Given Omeprazole (Omeprazole) 20 mg PO DAILY [facility] Last Admin: 08/10/17 13:17 Dose: Not Given Ondansetron HCl (Zofran) 4 mg IVPUSH Q6H PRN PRN Reason: Nausea/Vomiting Polyethylene Glycol (Miralax) 17 gm PO DAILY PRN PRN Reason: Constipation Last Admin: 08/09/17 09:06 Dose: 17 gm Potassium Chloride (Klor-Con 10) 30 meq PO DAILY [facility] Last Admin: 08/10/17 13:16 Dose: Not Given Prednisone (Prednisone) 40 mg PO WITHBREAKFAST [facility] Last Admin: 08/10/17 13:16 Dose: Not Given Sodium Chloride (Saline Flush) 10 ml FLUSH ASDIRECTED PRN PRN Reason: Keep Vein Open Last Admin: 08/09/17 21:02 Dose: 10 ml Triamcinolone Acetonide (Triamcinolone Acetonide 0.1% Crm) 0 gm TOP BID PRN PRN Reason: Itching Warfarin Sodium (Pharmacy To Dose - Warfarin) 1 dose .XX ASDIRECTED [facility] Zolpidem Tartrate (Ambien) 5 mg PO BEDTIME PRN PRN Reason: Sleep Last Admin: 08/09/17 22:42 Dose: 5 mg Discontinued Medications Albuterol/Ipratropium (Duoneb 3.0-0.5 Mg/3 Ml) 3 ml NEB Q6H [facility] Last Admin: 08/08/17 09:40 Dose: 3 ml Furosemide (Lasix) 40 mg IVPUSH NOW ONE Stop: 08/08/17 07:46 Last Admin: 08/08/17 08:03 Dose: 40 mg Furosemide (Lasix) 40 mg IVPUSH NOW ONE Stop: 08/08/17 08:12 Last Admin: 08/08/17 08:27 Dose: 40 mg Furosemide (Lasix) 80 mg IVPUSH Q12H [facility] Stop: 08/09/17 20:01 Furosemide (Lasix) 80 mg IVPUSH BIDDIURETIC [facility] Stop: 08/09/17 14:01 Last Admin: 08/09/17 07:28 Dose: 80 mg Furosemide (Lasix) 80 mg PO QAM [facility] Warfarin Sodium (Coumadin) 2.5 mg PO BEDTIME [facility] Warfarin Sodium (Coumadin) 0 mg PO ONETIME ONE Stop: 08/08/17 14:01 Last Admin: 08/08/17 13:20 Dose: Not Given Warfarin Sodium (Coumadin) 0.5 mg PO ONETIME ONE Stop: 08/09/17 14:01 Last Admin: 08/09/17 13:56 Dose: 0.5 mg - Exam General: Alert, Oriented, Cooperative, No Acute Distress. No: Moderate Distress , Severe Distress, Sedated, Lethargic, Obtunded HEENT: Pupils Equal, Pupils Reactive, EOMI, Mucous Membr. Moist/[place] Neck: Supple, Trachea Midline, No JVD Lungs: Decreased Breath Sounds (Improved from yesterday), Wheezing (Mild and sporadic). No: Crackles, Rales, Rhonchi, Rub, Stridor Cardiovascular: Regular Rate, Regular Rhythm GI/Abdominal Exam: Normal Bowel Sounds, Soft, Non-Tender, No Organomegaly, No Distention, No Abnormal Bruit (Female) Exam: Deferred Back Exam: Normal Inspection, Full Range of Motion Extremities: Normal Inspection, Normal Range of Motion, Non-Tender, No Pedal Edema, Normal Capillary Refill Neurological: No New Focal Deficit Psy/Mental Status: Alert, Normal Affect, Normal Mood - Problem List & Annotations (1) Acute on chronic congestive heart failure SNOMED Code(s): 36587098 Code(s): I50.9 - HEART FAILURE, UNSPECIFIED Status: Acute Priority: High Current Visit: Yes (2) Anticoagulated on Coumadin SNOMED Code(s): 82656999 Code(s): Z51.81 - ENCOUNTER FOR THERAPEUTIC DRUG LEVEL MONITORING; Z79.01 - UNIVERSITY SERVICES 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 (CURRENT) USE OF ANTICOAGULANTS Status: Chronic Current Visit: Yes (3) Chronic atrial fibrillation SNOMED Code(s): 654276580 Code(s): I48.2 - CHRONIC ATRIAL FIBRILLATION Status: Chronic Current Visit: Yes (4) Diabetes mellitus type 2, uncomplicated SNOMED Code(s): 369959752 Code(s): E11.9 - TYPE 2 DIABETES MELLITUS WITHOUT COMPLICATIONS Status: Chronic Current Visit: Yes Qualifiers: Diabetes mellitus [facility] insulin use: with intermediate frame tender use Qualified Code( s): E11.9 - Type 2 diabetes mellitus without complications; Z79.4 - nursing home ( current) use of insulin; Z79.4 - adjunct faculty for medical terminology (current) use of insulin; Z79.4 - nursing home (current) use of insulin; Z79.4 - adjunct faculty for medical terminology (current) use of insulin (5) COPD with acute exacerbation SNOMED Code(s): 895665970 Code(s): J44.1 - CHRONIC OBSTRUCTIVE PULMONARY DISEASE W (ACUTE) EXACERBATION Status: Acute Priority: High Current Visit: Yes (6) Coronary artery disease SNOMED Code(s): 44159534 Code(s): I25.10 - ATHSCL HEART DISEASE OF [place] CORONARY ARTERY W/O ANG PCTRS Status: Chronic Current Visit: No Onset Date: 04/04/15 (7) Hypertension SNOMED Code(s): 98974495 Code(s): I10 - ESSENTIAL (PRIMARY) HYPERTENSION Status: Chronic Current Visit: No (8) Pulmonary hypertension, moderate to severe SNOMED Code(s): 60520970 Code(s): I27.2 - OTHER SECONDARY PULMONARY HYPERTENSION * DO NOT USE * Status: Chronic Current Visit: No Onset Date: 03/26/15 - Problem List Review Problem List Initiated/Reviewed/Updated: Yes - My Orders Last 24 Hours: My Active Orders 08/09/17 16:30 Potassium Chloride [Klor-Con 10] 30 meq PO DAILY 08/10/17 05:11 BASIC METABOLIC PANEL,BMP [CHEM] AM CBC WITH AUTO DIFF [HEME] AM 08/10/17 09:00 Furosemide [Lasix] 80 mg PO QAM 12/19/17 11:01 INR,PT,PROTHROMBIN TIME [COAG] DAILY 08/11/17 07:00 Echo Comp wo Cont [US] Routine 08/11/17 11:01 INR,PT,PROTHROMBIN TIME [COAG] DAILY 08/12/17 11:01 INR,PT,PROTHROMBIN TIME [COAG] DAILY 08/13/17 11:01 INR,PT,PROTHROMBIN TIME [COAG] DAILY 08/14/17 11:01 INR,PT,PROTHROMBIN TIME [COAG] DAILY 08/15/17 11:01 INR,PT,PROTHROMBIN TIME [COAG] DAILY - Plan Plan:: 77-year-old female With history of fair COPD and CHF presented with shortness breath. Her symptoms are related to CAD exacerbation and mild worsening in her CHF. COPD exacerbation -DuoNeb every 4 hours albuterol every 2 hours as needed Continue Pulmicort and Singulair -Prednisone 40 mg daily -Rocephin -Negative influenza -Awaiting for final Sputum and blood cultures Incentive spirometer Acute on chronic congestive heart failure She received 3 doses of Lasix 80 mg IV every 12 hours -Continue home Lasix orally -Her blood pressure is on the low normal range, so I will avoid adding NIKOLAI inhibitor/ARBs at this time Continue metoprolol succinate Hyperkalemia improve with the IV Lasix Supratherapeutic INR Pharmacy is adjusting dose of warfarin Pulmonary hypertension, chronic Continue with nasal oxygen Anemia, chronic Continue iron sulfate Chronic atrial fibrillation Continue metoprolol and warfarin Pharmacy is consulted to do his warfarin Hypertension Continue metoprolol succinate Coronary artery disease, chronic No chest pain Continue with the Toprol succinate and aspirin DVT prophylaxis: She is on Coumadin She wants to be DNR for CODE STATUS Plan of care was discussed with patient and she verbalized understanding and agreed with plan
[2017-08-10] MEDS ORDERED: Warfarin 2 MG Tab ONE (17:43)
[2017-08-10] MEDS: Metoprolol Succinate 25 MG Tab.ER PO SCH (22:10)
[2017-08-10] MEDS: Montelukast 10 MG Tab PO SCH (22:10)
[2017-08-11] MEDS: Albuterol/Ipratropium 3.0-0.5 MG/3 ML Neb Soln NEB SCH ×3 (01:19→07:30)
[2017-08-11] MEDS: Budesonide 0.5 MG/2 ML Neb Susp NEB SCH (07:30)
[2017-08-11] MEDS: COLESTIPOL 1 GM PO SCH (09:03)
[2017-08-11] MEDS: LINAGLIPTIN 5 MG PO SCH (09:04)
[2017-08-11] MEDS: glipiZIDE 5 MG Tab.ER PO SCH (09:05)
[2017-08-11] MEDS: predniSONE 20 MG Tab PO SCH (09:05)
[2017-08-11] MEDS: Potassium Chloride 10 MEQ Tab.ER PO SCH (09:05)
[2017-08-11] MEDS: Multivitamins,Therapeutic Tab PO SCH (09:05)
[2017-08-11] MEDS: Ferrous Sulfate 325 MG Tab PO SCH (09:05)
[2017-08-11] MEDS: Omeprazole 20 MG Cap.CR PO SCH (09:06)
[2017-08-11] MEDS: Aspirin 81 MG Tab.Chew PO SCH (09:06)
[2017-08-11] MEDS: Furosemide 20 MG Tab PO SCH (09:06)
--- NOTE | 2017-08-11 09:45 | PCM.DCSUM1 ---
Discharge Summary - Hospital Course Free Text/Narrative:: 77-year-old female with past medical history of chronic atrial fibrillation, COPD, congestive heart failure, cerebrovascular disease, hypertension, diabetes mellitus type 2 presented to the emergency room for having progressive shortness of breath started the day before admission. She stated that 2 days prior to admission she had head cold with runny nose and sinus congestion and her baseline shortness breaths markedly get worse. She was running out of breath when she just go from bed to bathroom. She admitted wheezing but no cough , fever, or chills. Patient denies nausea, vomiting, chest pain, headache, upper respiratory symptoms, abdominal pain, diarrhea, urinary symptoms, lower extremities edema, new unilateral weakness, any other symptoms or concerns. 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 She is having follow-up appointment with him next week. On admission her laboratory data reported WBC 8.9. Neutrophils 77.9%. INR 3.5. Sodium 139. Potassium 5.3. B UN 42. Creatinine 2.0. Glucose 162. CO2 22 10. Lactic acid 1.4. Magnesium 2.2. BNP 557. Troponin 0.02. LFTs are normal. UA is unremarkable. Patient received 80 mg of Lasix IV in the emergency room and she [id number] cc of urine output and her breathing improved. Patient received another 2 doses of Lasix 80 mg IV Lasix and she went back to her regular dose. Also patient had COPD exacerbation so she was started on DuoNeb every 4 hours in admission to oral prednisone and IV antibiotics. Patient gradually get better. Today she wants to go home as she feels she is back to her normal. She was advised to follow-up with primary care provider early next week and used her DuoNeb every 4-6 hours. I decreased her warfarin from 2.5 mg daily to 2 mg daily. Patient verbalized understanding agreed with the plan. Patient is homebound and she will benefit from home health due to her advanced lung diseases and multiple comorbidities - Discharge Data Discharge Date: 08/11/17 Discharge Disposition: Home, W Home Health Agency 06 Condition: Good - Discharge Diagnosis/Problem(s) (1) Acute on chronic congestive heart failure SNOMED Code(s): 52925775 ICD Code: I50.9 - HEART FAILURE, UNSPECIFIED Status: Acute Priority: High Current Visit: Yes (2) Anticoagulated on Coumadin SNOMED Code(s): 25217239 ICD Code: Z51.81 - ENCOUNTER FOR THERAPEUTIC DRUG LEVEL MONITORING; Z79.01 - [facility] (CURRENT) USE OF ANTICOAGULANTS Status: Chronic Current Visit: Yes (3) Chronic atrial fibrillation SNOMED Code(s): 296906220 ICD Code: I48.2 - CHRONIC ATRIAL FIBRILLATION Status: Chronic Current Visit: Yes (4) Diabetes mellitus type 2, uncomplicated SNOMED Code(s): 847752355 ICD Code: E11.9 - TYPE 2 DIABETES MELLITUS WITHOUT COMPLICATIONS Status: Chronic Current Visit: Yes Qualifiers: Diabetes mellitus alf insulin use: with termination clerk use Qualified Code( s): E11.9 - Type 2 diabetes mellitus without complications; Z79.4 - termination clerk ( current) use of insulin; Z79.4 - longterm (current) use of insulin; Z79.4 - termination clerk (current) use of insulin; Z79.4 - termination clerk (current) use of insulin (5) COPD with acute exacerbation SNOMED Code(s): 899689855 ICD Code: J44.1 - CHRONIC OBSTRUCTIVE PULMONARY DISEASE W (ACUTE) EXACERBATION Status: Acute Priority: High Current Visit: Yes (6) Coronary artery disease SNOMED Code(s): 86710478 ICD Code: I25.10 - ATHSCL HEART DISEASE OF [place] CORONARY ARTERY W/O ANG PCTRS Status: Chronic Current Visit: No Onset Date: 04/04/15 (7) Hypertension SNOMED Code(s): 08267387 ICD Code: I10 - ESSENTIAL (PRIMARY) HYPERTENSION Status: Chronic Current Visit: No (8) Pulmonary hypertension, moderate to severe SNOMED Code(s): 94095610 ICD Code: I27.2 - OTHER SECONDARY PULMONARY HYPERTENSION * DO NOT USE * Status: Chronic Current Visit: No Onset Date: 03/26/15 - Patient Instructions Diet: Heart Healthy Diet Fluid Restriction: 1500 mL Activity: As Tolerated Showering/Bathing: May Shower Notify Provider of: Fever, Nausea and/or Vomiting - Discharge Plan Prescriptions/Med Rec: Azithromycin [IJD: Azithromycin] 250 mg PO DAILY #5 tab Prednisone [IJD: predniSONE] 40 mg PO WITHBREAKFAST #10 tablet Warfarin [Coumadin] 2 mg PO DAILY #30 tablet Home Medications: Home Meds Colestipol [Colestipol HCl] 5 tab PO BID 11/16/13 [History] Linagliptin [Tradjenta] 5 mg PO DAILY 11/16/13 [History] Omeprazole 20 mg PO DAILY 11/16/13 [History] Triamcinolone Acetonide [Kenalog 0.1% Crm] 1 applic .XX BID PRN 11/16/13 [ History] glipiZIDE [Glucotrol XL] 10 mg PO BID 02/20/15 [History] Albuterol [Proair HFA] 2 puff INH QID PRN 10/07/15 [History] Ferrous Sulfate [Iron] 325 mg PO DAILY 10/07/15 [History] Budesonide [Pulmicort] 0.5 mg NEB BIDRT #60 neb 12/25/16 [Rx] Aspirin 81 mg PO DAILY 04/20/17 [History] Potassium Chloride 30 meq PO DAILY 04/20/17 [History] Furosemide [Lasix] 80 mg PO QAM 07/01/17 [History] Metoprolol Succinate [Toprol XL] 75 mg PO BEDTIME 07/01/17 [History] Montelukast [Singulair] 10 mg PO BEDTIME 07/01/17 [History] Multivitamin [Multivitamins] 1 cap PO DAILY 07/01/17 [History] Furosemide 60 mg PO WITHLUNCH 07/05/17 [History] Albuterol/Ipratropium [DuoNeb 3.0-0.5 MG/3 ML] 3 ml NEB Q6HRRT #30 neb 08/11/17 [Rx] Azithromycin [IJD: Azithromycin] 250 mg PO DAILY #5 tab 08/11/17 [Rx] Prednisone [IJD: predniSONE] 40 mg PO WITHBREAKFAST #10 tablet 08/11/17 [Rx] Warfarin [Coumadin] 2 mg PO DAILY #30 tablet 08/11/17 [Rx] - General Info Date of Service: 08/11/17 Admission Dx/Problem (Free Text: Admission Diagnosis/Problem Admission Diagnosis/Problem CHF, Congestive heart failure Subjective Update: Patient stated that she is back to her normal. She denies cough, fever, or chills. Patient denies nausea, vomiting, chest pain, headache, upper respiratory symptoms, abdominal pain, diarrhea, urinary symptoms, lower extremities edema, new unilateral weakness, any other symptoms or concerns - Patient Data Vitals - Most Recent: Last Vital Signs Temp 36.9 C 08/11/17 08:29 Pulse 98 08/11/17 08:29 Resp 20 08/11/17 08:29 BP 108/55 L 08/11/17 08:29 Pulse Ox 100 08/11/17 08:29 Weight - Most Recent: 74.661 kg Lab Results - Last 24 hrs: Laboratory Results - last 24 hr 08/10/17 08/10/17 08/10/17 Range/Units 06:13 06:13 06:13 WBC 6.7 (5.0-10.0) 10^3/uL RBC 2.80 L (4.2-5.4) 10^6/uL Hgb 8.1 L (12.0-16.0) g/dL Hct 26.4 L (37.0-47.0) % MCV 94.3 (80-100) fL MCH 28.9 (27.0-34.0) pg MCHC 30.7 L (33.0-35.0) g/dL Plt Count 131 L (150-450) 10^3/uL Neut % (Auto) 75.5 H (42.2-75.2) % Lymph % (Auto) 13.4 L (20.5-50.1) % Moca % (Auto) 10.4 H (2-8) % Eos % (Auto) 0.6 L (1.0-3.0) % Baso % (Auto) 0.1 (0.0-1.0) % PT 22.7 H (9.0-12.0) SEC INR 2.3 H (0.9-1.2) Sodium 138 (135-145) mmol/L Potassium 3.7 (3.6-5.0) mmol/L Chloride 104 (101-111) mmol/L Carbon Dioxide 25.0 (21.0-31.0) mmol/L Anion Gap 12.7 BUN 48 H (7-18) mg/dL Creatinine 2.1 H (0.6-1.3) mg/dL Est Cr Clr Drug Dosing 21.41 mL/min Estimated GFR (MDRD) 23 Glucose 70 L (74-105) mg/dL Calcium 9.0 (8.4-10.2) mg/dl C-Reactive Protein (0.0-1.3) mg/dL 08/11/17 08/11/17 08/11/17 Range/Units 05:34 05:34 05:34 WBC 7.5 (5.0-10.0) 10^3/uL RBC 2.87 L (4.2-5.4) 10^6/uL Hgb 8.4 L (12.0-16.0) g/dL Hct 27.2 L (37.0-47.0) % MCV 94.8 (80-100) fL MCH 29.3 (27.0-34.0) pg MCHC 30.9 L (33.0-35.0) g/dL Plt Count 139 L (150-450) 10^3/uL Neut % (Auto) 77.5 H (42.2-75.2) % Lymph % (Auto) 10.0 L (20.5-50.1) % Moca % (Auto) 12.1 H (2-8) % Eos % (Auto) 0.3 L (1.0-3.0) % Baso % (Auto) 0.1 (0.0-1.0) % PT 20.8 H (9.0-12.0) SEC INR 2.1 H (0.9-1.2) Sodium 138 (135-145) mmol/L Potassium 4.3 (3.6-5.0) mmol/L Chloride 103 (101-111) mmol/L Carbon Dioxide 24.0 (21.0-31.0) mmol/L Anion Gap 15.3 BUN 49 H (7-18) mg/dL Creatinine 1.9 H (0.6-1.3) mg/dL Est Cr Clr Drug Dosing 23.66 mL/min Estimated GFR (MDRD) 26 Glucose 156 H (74-105) mg/dL Calcium 9.2 (8.4-10.2) mg/dl C-Reactive Protein (0.0-1.3) mg/dL 08/11/17 Range/Units 05:34 WBC (5.0-10.0) 10^3/uL RBC (4.2-5.4) 10^6/uL Hgb (12.0-16.0) g/dL Hct (37.0-47.0) % MCV (80-100) fL MCH (27.0-34.0) pg MCHC (33.0-35.0) g/dL Plt Count (150-450) 10^3/uL Neut % (Auto) (42.2-75.2) % Lymph % (Auto) (20.5-50.1) % Moca % (Auto) (2-8) % Eos % (Auto) (1.0-3.0) % Baso % (Auto) (0.0-1.0) % PT (9.0-12.0) SEC INR (0.9-1.2) Sodium (135-145) mmol/L Potassium (3.6-5.0) mmol/L Chloride (101-111) mmol/L Carbon Dioxide (21.0-31.0) mmol/L Anion Gap BUN (7-18) mg/dL Creatinine (0.6-1.3) mg/dL Est Cr Clr Drug Dosing mL/min Estimated GFR (MDRD) Glucose (74-105) mg/dL Calcium (8.4-10.2) mg/dl C-Reactive Protein < 0.5 (0.0-1.3) mg/dL Med Orders - Current: Current Medications Acetaminophen (Tylenol) 650 mg PO Q4H PRN PRN Reason: Pain (Mild 1-3)/fever Last Admin: 08/10/17 02:46 Dose: 650 mg Albuterol (Proventil Neb Soln) 2.5 mg NEB Q2H PRN PRN Reason: shortness of breath/wheezing Albuterol/Ipratropium (Duoneb 3.0-0.5 Mg/3 Ml) 3 ml NEB Q4H [facility] Last Admin: 08/11/17 07:30 Dose: 3 ml Aspirin (Aspirin) 81 mg PO DAILY [facility] Last Admin: 08/11/17 09:06 Dose: 81 mg Budesonide (Pulmicort) 0.5 mg NEB BIDRT [facility] Last Admin: 08/11/17 07:30 Dose: 0.5 mg Ceftriaxone Sodium (Rocephin) 1 gm IVPUSH Q24H [facility] Last Admin: 08/10/17 13:17 Dose: Not Given Ferrous Sulfate (Ferrous Sulfate) 325 mg PO DAILY [facility] Last Admin: 08/11/17 09:05 Dose: 325 mg Furosemide (Lasix) 60 mg PO WITHLUNCH [facility] Last Admin: 08/10/17 13:17 Dose: Not Given Furosemide (Lasix) 80 mg PO QAM [facility] Last Admin: 08/11/17 09:06 Dose: 80 mg Glipizide (Glucotrol Xl) 10 mg PO BID [facility] Last Admin: 08/11/17 09:05 Dose: 10 mg Magnesium Hydroxide (Milk Of Magnesia) 30 ml PO Q12H PRN PRN Reason: Constipation Metoprolol Succinate (Toprol Xl) 75 mg PO BEDTIME [facility] Last Admin: 08/10/17 22:10 Dose: Not Given Montelukast Sodium (Singulair) 10 mg PO BEDTIME [facility] Last Admin: 08/10/17 22:10 Dose: Not Given Multivitamins (Thera) 1 each PO DAILY [facility] Last Admin: 08/11/17 09:05 Dose: 1 each Colestipol 1 Gram (Own Med) 0 tab PO BID [facility] Last Admin: 08/11/17 09:03 Dose: 5 tab Linagliptin [ Tradjenta] 5mg Own Med 5 mg PO DAILY [facility] Last Admin: 08/11/17 09:04 Dose: 5 mg Omeprazole (Omeprazole) 20 mg PO DAILY [facility] Last Admin: 08/11/17 09:06 Dose: 20 mg Ondansetron HCl (Zofran) 4 mg IVPUSH Q6H PRN PRN Reason: Nausea/Vomiting Polyethylene Glycol (Miralax) 17 gm PO DAILY PRN PRN Reason: Constipation Last Admin: 08/09/17 09:06 Dose: 17 gm Potassium Chloride (Klor-Con 10) 30 meq PO DAILY [facility] Last Admin: 08/11/17 09:05 Dose: 30 meq Prednisone (Prednisone) 40 mg PO WITHBREAKFAST [facility] Last Admin: 08/11/17 09:05 Dose: 40 mg Sodium Chloride (Saline Flush) 10 ml FLUSH ASDIRECTED PRN PRN Reason: Keep Vein Open Last Admin: 08/09/17 21:02 Dose: 10 ml Triamcinolone Acetonide (Triamcinolone Acetonide 0.1% Crm) 0 gm TOP BID PRN PRN Reason: Itching Warfarin Sodium (Pharmacy To Dose - Warfarin) 1 dose .XX ASDIRECTED [facility] Zolpidem Tartrate (Ambien) 5 mg PO BEDTIME PRN PRN Reason: Sleep Last Admin: 08/09/17 22:42 Dose: 5 mg Discontinued Medications Albuterol/Ipratropium (Duoneb 3.0-0.5 Mg/3 Ml) 3 ml NEB Q6H [facility] Last Admin: 08/08/17 09:40 Dose: 3 ml Furosemide (Lasix) 40 mg IVPUSH NOW ONE Stop: 08/08/17 07:46 Last Admin: 08/08/17 08:03 Dose: 40 mg Furosemide (Lasix) 40 mg IVPUSH NOW ONE Stop: 08/08/17 08:12 Last Admin: 08/08/17 08:27 Dose: 40 mg Furosemide (Lasix) 80 mg IVPUSH Q12H [facility] Stop: 08/09/17 20:01 Furosemide (Lasix) 80 mg IVPUSH BIDDIURETIC [facility] Stop: 08/09/17 14:01 Last Admin: 08/09/17 07:28 Dose: 80 mg Furosemide (Lasix) 80 mg PO QAM [facility] Warfarin Sodium (Coumadin) 2.5 mg PO BEDTIME [facility] Warfarin Sodium (Coumadin) 0 mg PO ONETIME ONE Stop: 08/08/17 14:01 Last Admin: 08/08/17 13:20 Dose: Not Given Warfarin Sodium (Coumadin) 0.5 mg PO ONETIME ONE Stop: 08/09/17 14:01 Last Admin: 08/09/17 13:56 Dose: 0.5 mg Warfarin Sodium (Coumadin) Confirm Administered Dose 2 mg .ROUTE .STK-MED ONE Stop: 08/10/17 17:44 Last Admin: 08/10/17 18:32 Dose: Not Given - Exam General: Reports: Alert, Oriented, Cooperative, No Acute Distress. Denies: Mild Distress, Moderate Distress, Severe Distress, Sedated, Lethargic, Obtunded HEENT: Reports: Pupils Equal, Pupils Reactive, EOMI, Mucous Membr. Moist/Beatty Neck: Reports: Supple, Trachea Midline, No JVD Lungs: Reports: Normal Respiratory Effort, Decreased Breath Sounds (With her air exchange), Wheezing (Mild and sporadic, at baseline). Denies: Crackles, Rales, Rhonchi, Rub, Stridor Cardiovascular: Reports: No Murmurs, Irregular Rhythm GI/Abdominal Exam: Normal Bowel Sounds, Soft, Non-Tender, No Organomegaly, No Distention, No Abnormal Bruit, No Mass (Female) Exam: Deferred Rectal (Female) Exam: Deferred Back Exam: Reports: Normal Inspection, Full Range of Motion. Denies: CVA Tenderness (L), CVA Tenderness (R) Extremities: Normal Inspection, Normal Range of Motion, Non-Tender, No Pedal Edema, Normal Capillary Refill Skin: Reports: Dry, Intact. Denies: Rash Neurological: Reports: No New Focal Deficit Psy/Mental Status: Reports: Alert, Normal Affect, Normal Mood *Q Meaningful Use (DIS) - VTE *Q VTE Criteria *Q: - Stroke *Q Stroke Criteria *Q: - AMI *Q AMI Criteria *Q:
[2017-08-11 11:02] VITALS: BP 121/69
[2017-08-11] MEDS ORDERED: Warfarin 2.5 MG Tab PO ONE (14:00)
== END 2017-08-11 11:20 | disposition home health service (06) | DRG 292 ==
LOC: DL.ED 06:26 → DL.MS 08:48 → UNDOADMIN 08:48 → DL.MS 09:07 → UNDODISIN 08-11 11:20
PROVIDERS: ADMIT Family Medicine; ATTEND Family Medicine
DX: I11.0 Hypertensive heart disease with heart failure (principal); J44.1 Chronic obstructive pulmonary disease with (acute) exacerbation; I50.9 Heart failure, unspecified; Z79.4 Long term (current) use of insulin; I48.2 Chronic atrial fibrillation; Z51.81 Encounter for therapeutic drug level monitoring; E11.9 Type 2 diabetes mellitus without complications; I25.10 Atherosclerotic heart disease of native coronary artery without angina pectoris; E87.5 Hyperkalemia; D64.9 Anemia, unspecified; Z66 Do not resuscitate; Z86.718 Personal history of other venous thrombosis and embolism; K21.9 Gastro-esophageal reflux disease without esophagitis; K44.9 Diaphragmatic hernia without obstruction or gangrene; M19.90 Unspecified osteoarthritis, unspecified site; Z86.73 Personal history of transient ischemic attack (TIA), and cerebral infarction without residual deficits; H54.7 Unspecified visual loss; Z88.0 Allergy status to penicillin; Z88.8 Allergy status to other drugs, medicaments and biological substances; Z87.891 Personal history of nicotine dependence; Z91.012 Allergy to eggs; Z91.040 Latex allergy status; Z79.01 Long term (current) use of anticoagulants; Z79.84 Long term (current) use of oral hypoglycemic drugs; Z79.82 Long term (current) use of aspirin; Z79.899 Other long term (current) drug therapy
CPT/HCPCS: 36415; 71020; 80053; 83605; 83735; 83880; 84484; 85025; 85610; 87040; 96374; 99285; J1940 ×2; 80048; 81001; 86140; 87804; 93306; 94010; 94640; 99283; A9270-GY; J0696; J7050

== ENCOUNTER 2017-09-09 23:25 | Emergency (ER) | payer MEDICARE, MEDICAID ==
[2017-09-09 23:20] VITALS: BP 103/70
--- NOTE | 2017-09-09 23:45 | EDM.PDOC ---
ED HPI GENERAL MEDICAL PROBLEM - General Chief Complaint: ENT Problem Stated Complaint: AMBULANCE Time Seen by Provider: 09/09/17 23:35 Source of Information: Reports: Patient History Limitations: Reports: No Limitations - History of Present Illness INITIAL COMMENTS - FREE TEXT/NARRATIVE: patient comes emergency department today from home by ambulance with concerns of a nosebleed. The patient was sleeping when she woke up and suddenly started to have a nosebleed. It was draining out of bilateral nares and down the back of her throat. She had to take her oxygen off because it was bleeding so much. Taking her oxygen off meter quite short of breath. She has a history of COPD. Prior to the nosebleed she was not more short of breath than she typically is. After she put the oxygen back on her shortness of breath resolved. She is on Coumadin long-term therapy for atrial fibrillation. She has had multiple nosebleeds and tries multiple things at home to prevent nosebleeds to include a bubbler on her oxygen as well as humidification in the home. She denies any fever chills weakness dizziness lightheadedness. No chest pain or increased shortness of breath than baseline. Right Arm Pain Score (Numeric/FACES): 3 - Related Data Allergies Allergy/AdvReac Type Severity Reaction Status Date / Time atorvastatin [From Lipitor] Allergy unknown Verified 09/09/17 23:20 codeine Allergy Cannot Verified 09/09/17 23:20 Remember egg Allergy uknown Verified 09/09/17 23:20 Egg Derived Allergy unknown Verified 09/09/17 23:20 hydrochlorothiazide Allergy Cannot Verified 09/09/17 23:20 Remember latex Allergy Rash Verified 09/09/17 23:20 nickel Allergy Rash Verified 09/09/17 23:20 nylon Allergy Rasj Verified 09/09/17 23:20 Penicillins Allergy Rash Verified 09/09/17 23:20 Sulfa (Sulfonamide Allergy Rash Verified 09/09/17 23:20 Antibiotics) vitamin E (d-alpha Allergy Cannot Verified 08/08/17 09:16 tocopherol) Remember [vitamin E] chlorine Allergy Rash Uncoded 08/08/17 09:16 seasonal allergies Allergy Cannot Uncoded 08/08/17 09:16 Remember Home Meds: Home Meds Colestipol [Colestipol HCl] 5 tab PO BID 11/16/13 [History] Linagliptin [Tradjenta] 5 mg PO DAILY 11/16/13 [History] Omeprazole 20 mg PO DAILY 11/16/13 [History] Triamcinolone Acetonide [Kenalog 0.1% Crm] 1 applic .XX BID PRN 11/16/13 [ History] glipiZIDE [Glucotrol XL] 10 mg PO BID 02/20/15 [History] Albuterol [Proair HFA] 2 puff INH QID PRN 10/07/15 [History] Ferrous Sulfate [Iron] 325 mg PO DAILY 10/07/15 [History] Budesonide [Pulmicort] 0.5 mg NEB BIDRT #60 neb 12/25/16 [Rx] Aspirin 81 mg PO DAILY 04/20/17 [History] Potassium Chloride 30 meq PO DAILY 04/20/17 [History] Furosemide [Lasix] 80 mg PO QAM 07/01/17 [History] Metoprolol Succinate [Toprol XL] 75 mg PO BEDTIME 07/01/17 [History] Montelukast [Singulair] 10 mg PO BEDTIME 07/01/17 [History] Multivitamin [Multivitamins] 1 cap PO DAILY 07/01/17 [History] Furosemide 60 mg PO WITHLUNCH 07/05/17 [History] Albuterol/Ipratropium [DuoNeb 3.0-0.5 MG/3 ML] 3 ml NEB Q6HRRT #30 neb 08/11/17 [Rx] Warfarin [Coumadin] 2 mg PO DAILY #30 tablet 08/11/17 [Rx] Gabapentin [Neurontin] 100 mg PO QPM 09/09/17 [History] Past Medical History HEENT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: Cataract, Impaired Vision Other HEENT History: catarcts bilaterally Cardiovascular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: Afib, Bacterial Endocarditis, Blood Clots/VTE/ DVT, Heart Failure, High Cholesterol, Stents Respiratory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: COPD, Pneumonia, Recurrent, SOB Gastrointestinal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: GERD, Hiatal Hernia Genitourinary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: UTI, Recurrent Other Genitourinary History: CKD [employer]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: , Spontaneous Other OB/BYN History: vaginal deliveries x5 Musculoskeletal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: Arthritis Neurological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: CVA, Migraines Other Neuro History: hx of migraines. Psychiatric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: None Endocrine/Metabolic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: Diabetes, Type II Hematologic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: Anemia, Anticoagulation Therapy, Blood Transfusion (s), Iron Deficiency Oncologic (Cancer)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: Breast Other Oncologic History: mastectomy on left Dermatologic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: Other (See Below) Other Dermatologic History: patient reports that she has an itchy rash uses cream for this - Infectious Disease History Infectious Disease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: Chicken Pox, Measles, Mumps - Past Surgical History Cardiovascular Surgical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: Other (See Below) Social & Family History - Family History Family Medical History: Noncontributory HEENT: Reports: Impaired Vision Cardiac: Reports: Afib, Other (See Below) Other Cardiac Family History: stroke Musculoskeletal: Reports: None Endocrine/Metabolic: Reports: Diabetes, type II - Tobacco Use Smoking Status *Q: Never Smoker Years of Tobacco use: 20 Packs/Tins Daily: 2 Used Tobacco, but Quit: Yes Month Tobacco Last Used: 20 yrs ago Second Hand Smoke Exposure: No - Caffeine Use Caffeine Use: Reports: Coffee - Alcohol Use Days Per Week of Alcohol Use: 0 - Recreational Drug Use Recreational Drug Use: No - Living Situation & Occupation Living situation: Reports: , with Spouse ED ROS ENT - Review of Systems Review Of Systems: ROS reveals no pertinent complaints other than HPI. ED EXAM, ENT - Physical Exam Exam: See Below Exam Limited By: No Limitations General Appearance: Alert, WD/WN, No Apparent Distress Eye Exam: Bilateral Eye: Normal Inspection Ears: Normal External Exam, Normal Canal Nose: Dried Blood (on the external nares), Other (looking at the turbinates bilaterally there is some clotted blood without any active bleeding the passageways are quite open.). No: Foreign Body, Active Bleeding Mouth/Throat: Normal Inspection (other than some dried blood on her lips and tongue. Her posterior pharynx does not have any bleeding coming from the sinuses.). No: Bleeding, Throat Swelling, Uvular Deviation Head: Atraumatic, Normocephalic Neck: Normal Inspection, Supple, Non-Tender, Full Range of Motion Respiratory/Chest: No Respiratory Distress, Lungs Clear, Normal Breath Sounds Cardiovascular: Normal Peripheral Pulses, Irregularly Irregular (irregularly irregular) GI/Abdominal: Normal Bowel Sounds, Soft, Non-Tender (Female) Exam: Deferred Rectal (Female) Exam: Deferred Back: Normal Inspection Extremities: Normal Inspection, Normal Range of Motion, Normal Capillary Refill Neurological: Alert, Oriented Psychiatric: Normal Affect Skin: Warm, Dry, Intact, Normal Color, No Rash Lymphatic: No Adenopathy Course - Vital Signs Last Recorded V/S: Last Vital Signs Temp 36.6 C 09/09/17 23:16 Pulse 80 09/09/17 23:16 Resp 20 09/09/17 23:16 BP 103/70 09/09/17 23:16 Pulse Ox 96 09/09/17 23:16 - Orders/Labs/Meds Labs: Laboratory Tests 09/09/17 Range/Units 23:50 PT 24.4 H (9.0-12.0) SEC INR 2.4 H (0.9-1.2) Departure - Departure Time of Disposition: 00:44 Disposition: Home, Self-Care Clinical Impression: Epistaxis, Anticoagulated on Coumadin - Discharge Information Referrals: PCP,None [Primary Care Provider] - Forms: ED Department Discharge Additional Instructions: Continue with the oxygen bubbler at home. Continue with the humidifier at the home. Continue Coumadin dosing. Nasal saline or nasal saline gel 2-4 times a day to help prevent nose bleeds. Return to the ED if new or worsening symptoms. Follow up with primary care if any problems. - Assessment/Plan Assessment:: Epistaxis resolved prior to arrival. meterman anti-coagulation therapy coumadin therapeutic INR tonight. Plan: Continue with the oxygen bubbler at home. Continue with the humidifier at the home. Continue Coumadin dosing. Nasal saline or nasal saline gel 2-4 times a day to help prevent nose bleeds. Return to the ED if new or worsening symptoms. Follow up with primary care if any problems.
== END 2017-09-10 00:57 | disposition home or self-care (01) ==
LOC: DL.ED 23:25
DX: R04.0 Epistaxis (principal); Z79.01 Long term (current) use of anticoagulants; I50.9 Heart failure, unspecified; E78.00 Pure hypercholesterolemia, unspecified; I48.91 Unspecified atrial fibrillation; J44.9 Chronic obstructive pulmonary disease, unspecified; K21.9 Gastro-esophageal reflux disease without esophagitis; E11.22 Type 2 diabetes mellitus with diabetic chronic kidney disease; N18.9 Chronic kidney disease, unspecified; Z95.5 Presence of coronary angioplasty implant and graft; Z87.891 Personal history of nicotine dependence; Z79.82 Long term (current) use of aspirin; Z79.84 Long term (current) use of oral hypoglycemic drugs; Z79.899 Other long term (current) drug therapy; Z88.0 Allergy status to penicillin; Z88.2 Allergy status to sulfonamides; Z88.8 Allergy status to other drugs, medicaments and biological substances; Z91.048 Other nonmedicinal substance allergy status; Z91.012 Allergy to eggs; Z88.5 Allergy status to narcotic agent
CPT/HCPCS: 36415; 85610; 99283; 99284

== ENCOUNTER 2017-09-26 07:17 | Emergency (ER) | payer MEDICARE, MEDICAID ==
--- NOTE | 2017-09-26 07:20 | EDM.PDOC ---
ED HPI GENERAL MEDICAL PROBLEM - General Chief Complaint: ENT Problem Stated Complaint: IN BY AMBULANCE Time Seen by Provider: 09/26/17 07:19 Source of Information: Reports: Patient, EMS, Old Records, RN, RN Notes Reviewed History Limitations: Reports: No Limitations - History of Present Illness INITIAL COMMENTS - FREE TEXT/NARRATIVE: Arrives from home by ambulance with c/o nose bleed. Pt states she takes coumadin and is very fearful of having any bleeding. Denies nasal congestion, or injury. Uses supplemental oxygen by nasal cannula. Denies dizziness, orthostatic lightheadedness, syncope, or near syncope. No active bleeding at time of arrival to ER. Onset: Today Duration: Recurring Location: Reports: Other (nose) Quality: Reports: Other (denies pain) Severity: Moderate Improves with: Reports: Other (pinching nose) Worsens with: Reports: None Associated Symptoms: Reports: No Other Symptoms Treatments BASE MANAGER: Reports: Other (see below) (pinching nose) - Related Data Allergies Allergy/AdvReac Type Severity Reaction Status Date / Time atorvastatin [From Lipitor] Allergy unknown Verified 09/26/17 07:31 codeine Allergy Cannot Verified 09/26/17 07:31 Remember egg Allergy uknown Verified 09/26/17 07:31 Egg Derived Allergy unknown Verified 09/26/17 07:31 hydrochlorothiazide Allergy Cannot Verified 09/26/17 07:31 Remember latex Allergy Rash Verified 09/26/17 07:31 nickel Allergy Rash Verified 09/26/17 07:31 nylon Allergy Rasj Verified 09/26/17 07:31 Penicillins Allergy Rash Verified 09/26/17 07:31 Sulfa (Sulfonamide Allergy Rash Verified 09/26/17 07:31 Antibiotics) vitamin E (d-alpha Allergy Cannot Verified 09/26/17 07:31 tocopherol) Remember [vitamin E] chlorine Allergy Rash Uncoded 09/26/17 07:31 seasonal allergies Allergy Cannot Uncoded 09/26/17 07:31 Remember Home Meds: Home Meds Colestipol [Colestipol HCl] 5 tab PO BID 11/16/13 [History] Linagliptin [Tradjenta] 5 mg PO DAILY 11/16/13 [History] Omeprazole 20 mg PO DAILY 11/16/13 [History] Triamcinolone Acetonide [Kenalog 0.1% Crm] 1 applic .XX BID PRN 11/16/13 [ History] glipiZIDE [Glucotrol XL] 10 mg PO BID 02/20/15 [History] Albuterol [Proair HFA] 2 puff INH QID PRN 10/07/15 [History] Ferrous Sulfate [Iron] 325 mg PO DAILY 10/07/15 [History] Budesonide [Pulmicort] 0.5 mg NEB BIDRT #60 neb 12/25/16 [Rx] Aspirin 81 mg PO DAILY 04/20/17 [History] Potassium Chloride 30 meq PO DAILY 04/20/17 [History] Furosemide [Lasix] 80 mg PO QAM 07/01/17 [History] Metoprolol Succinate [Toprol XL] 75 mg PO BEDTIME 07/01/17 [History] Montelukast [Singulair] 10 mg PO BEDTIME 07/01/17 [History] Multivitamin [Multivitamins] 1 cap PO DAILY 07/01/17 [History] Furosemide 60 mg PO WITHLUNCH 07/05/17 [History] Albuterol/Ipratropium [DuoNeb 3.0-0.5 MG/3 ML] 3 ml NEB Q6HRRT #30 neb 08/11/17 [Rx] Warfarin [Coumadin] 2 mg PO DAILY #30 tablet 08/11/17 [Rx] Gabapentin [Neurontin] 100 mg PO QPM 09/09/17 [History] Past Medical History HEENT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: Cataract, Impaired Vision Other HEENT History: catarcts bilaterally Cardiovascular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: Afib, Bacterial Endocarditis, Blood Clots/VTE/ DVT, Heart Failure, High Cholesterol, Stents Respiratory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: COPD, Pneumonia, Recurrent, SOB Gastrointestinal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: GERD, Hiatal Hernia Genitourinary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: UTI, Recurrent Other Genitourinary History: CKD [employer]POR[employer] COMM[employer] INTERN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: , Spontaneous Other OB/BYN History: vaginal deliveries x5 Musculoskeletal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: Arthritis Neurological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: CVA, Migraines Other Neuro History: hx of migraines. Psychiatric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: None Endocrine/Metabolic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: Diabetes, Type II Hematologic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: Anemia, Anticoagulation Therapy, Blood Transfusion (s), Iron Deficiency Oncologic (Cancer)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: Breast Other Oncologic History: mastectomy on left Dermatologic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: Other (See Below) Other Dermatologic History: patient reports that she has an itchy rash uses cream for this - Infectious Disease History Infectious Disease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: Chicken Pox, Measles, Mumps - Past Surgical History Cardiovascular Surgical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: Other (See Below) Social & Family History - Family History Family Medical History: Noncontributory HEENT: Reports: Impaired Vision Cardiac: Reports: Afib, Other (See Below) Other Cardiac Family History: stroke Musculoskeletal: Reports: None Endocrine/Metabolic: Reports: Diabetes, type II - Tobacco Use Smoking Status *Q: Never Smoker Years of Tobacco use: 20 Packs/Tins Daily: 2 Used Tobacco, but Quit: Yes Month Tobacco Last Used: 20 yrs ago Second Hand Smoke Exposure: No - Caffeine Use Caffeine Use: Reports: Coffee - Alcohol Use Days Per Week of Alcohol Use: 0 - Recreational Drug Use Recreational Drug Use: No - Living Situation & Occupation Living situation: Reports: , with Spouse ED ROS ENT - Review of Systems Review Of Systems: ROS reveals no pertinent complaints other than HPI. ED EXAM, ENT - Physical Exam Exam: See Below Exam Limited By: No Limitations General Appearance: Alert, WD/WN, No Apparent Distress Eye Exam: Bilateral Eye: Normal Inspection Ears: Hearing Grossly Normal Nose: Dried Blood (B/L nares with Left>Rt with punctate ). No: Active Bleeding Head: Atraumatic, Normocephalic Neck: Normal Inspection, Supple, Non-Tender, Full Range of Motion Respiratory/Chest: No Respiratory Distress, Lungs Clear, No Accessory Muscle Use , Decreased Breath Sounds Cardiovascular: Irregularly Irregular Neurological: Alert, Oriented, CN II-XII Intact, Normal Cognition, Normal Gait, No Motor/Sensory Deficits Psychiatric: Normal Affect, Normal Mood Skin: Warm, Dry, Intact, Normal Color, No Rash ED ENT PROCEDURES - Epistaxis Procedure Indication: Controlled Recent anticoagulants/antiplatlets: Yes Uncontrolled HTN: No Recent septal/nasal surgery: No Site of bleeding: Right Nare, Left Nare, Anterior Clearing of clots: Patient Blew Nose Topical Meds: Other (Afrin + Lidocaine 1% w/Epi) Ice pack to area: No Chemical cautery: Silver Nitrate Topical Local anesthesia - Lidocaine (Xylocaine): 1% with EPI Local Anesthetic Volume: 2cc Electrical cautery: Successful Complications: No Course - Vital Signs Last Recorded V/S: Last Vital Signs Temp 36.8 C 09/26/17 07:23 Pulse 75 09/26/17 07:23 Resp 20 09/26/17 07:23 BP 112/63 09/26/17 07:23 Pulse Ox 100 09/26/17 07:23 - Orders/Labs/Meds Labs: Laboratory Tests 09/26/17 09/26/17 Range/Units 07:38 07:38 WBC 6.4 (5.0-10.0) 10^3/uL RBC 2.95 L (4.2-5.4) 10^6/uL Hgb 8.5 L (12.0-16.0) g/dL Hct 28.0 L (37.0-47.0) % MCV 94.9 (80-100) fL MCH 28.8 (27.0-34.0) pg MCHC 30.4 L (33.0-35.0) g/dL Plt Count 147 L (150-450) 10^3/uL Neut % (Auto) 72.9 (42.2-75.2) % Lymph % (Auto) 13.2 L (20.5-50.1) % [place] % (Auto) 10.9 H (2-8) % Eos % (Auto) 2.7 (1.0-3.0) % Baso % (Auto) 0.3 (0.0-1.0) % PT 16.2 H D (9.0-12.0) SEC INR 1.6 H (0.9-1.2) Meds: Medications Discontinued Medications Generic Name Dose Route Start Last Admin Trade Name Freq PRN Reason Stop Dose Admin Lidocaine/Epinephrine 10 ml 09/26/17 07:29 09/26/17 07:38 Xylocaine 1% With Epinephrine 1:100,000 INJECT 09/26/17 07:30 10 ml ONETIME ONE Administration Oxymetazoline HCl 1 ml 09/26/17 07:28 09/26/17 07:50 Afrin Original 0.05% Nasal [place] AYANA 09/26/17 07:29 1 ml ONETIME ONE Administration Silver Nitrate 3 each 09/26/17 07:31 09/26/17 07:38 Silver Nitrate TOP 09/26/17 07:32 3 each ONETIME ONE Administration Departure - Departure Time of Disposition: 08:52 Disposition: Home, Self-Care 01 Condition: Good Clinical Impression: Epistaxis - Discharge Information Instructions: Nosebleed, [id number]-Lift Forms: ED Department Discharge Additional Instructions: If nosebleed occurs use 2 large sprays of Oxymetazoline nasal spray into each nostril and pinch your nose firmly for at least 15 minutes. Follow up in clinic this week with your doctor to recheck your Protime (INR), it was 1.6 today. Have your doctor recheck your nose, and refer you to an Ear/ Nose/Throat specialist if needed. Return to ER for any nose bleed that you cannot stop in 30 minutes.
[2017-09-26] MEDS ORDERED: Oxymetazoline 0.05% Nasal Spray 15 ML Bottle NAS ONE (07:28)
[2017-09-26] MEDS ORDERED: Lidocaine 1% with EPINEPHrine 1:100,000 20 ML MDV INJECT ONE (07:29)
[2017-09-26 07:30] VITALS: BP 112/63
[2017-09-26] MEDS ORDERED: Silver Nitrate Applicator Each TOP ONE (07:31)
== END 2017-09-26 09:48 | disposition home or self-care (01) ==
LOC: DL.ED 07:17
DX: R04.0 Epistaxis (principal); J44.9 Chronic obstructive pulmonary disease, unspecified; I50.9 Heart failure, unspecified; K21.9 Gastro-esophageal reflux disease without esophagitis; E11.22 Type 2 diabetes mellitus with diabetic chronic kidney disease; N18.9 Chronic kidney disease, unspecified; Z88.5 Allergy status to narcotic agent; Z91.012 Allergy to eggs; Z88.8 Allergy status to other drugs, medicaments and biological substances; Z88.0 Allergy status to penicillin; Z91.040 Latex allergy status; Z88.2 Allergy status to sulfonamides; Z79.01 Long term (current) use of anticoagulants; Z79.899 Other long term (current) drug therapy
CPT/HCPCS: 30901; 36415; 85025; 85610; 99282; 99284; A9270